=== PATIENT | female | born 1945 | race Caucasian/White ===

== ENCOUNTER → 2018-05-21 11:38 | Outpatient (CLI) | payer MEDICARE, SELFPAY ==
[2016-09-01 09:13] VITALS: BMI 27.6
--- NOTE | 2018-05-21 11:44 | RAD_ITS ---
STUDY: X-RAY - PELVIS AND BILATERAL HIPS REASON FOR EXAM: Female, 72 years old. Bilateral hip pain TECHNIQUE: AP view of the pelvis.? 2 views of the right hip, and 2 views of the left hip were obtained. COMPARISON: None. FINDINGS: There is a non-specific bowel gas pattern. Normal visualized soft tissue structures. There is narrowing with cortical sclerosis and osteophyte formation of the sacroiliac joint consistent with degenerative osteoarthritic changes. Normal bilateral superior and inferior pubic rami. Normal pubic symphysis. Normal bilateral ischial tuberosities. There are osteoarthritic changes of the right femoral head with marginal osteophyte formation. Normal right acetabulum. There is mild articular joint space narrowing of the right hip. There are osteoarthritic changes of the left femoral head with marginal osteophyte formation. Normal left acetabulum. There is mild articular joint space narrowing of the left hip. RAD/Hips B/L min 2 views w/ Pelvis IMPRESSION: Mild degenerative changes without acute findings Electronically Signed: Robin Llamas DO at 12:44 EDT Tel , Service support ,
[2018-05-21 13:55] LABS: Absolute Lymphocyte Count 1.74 X10^3/ul (0.83-4.51); Absolute Neutrophil Count 2.9 X10^3/uL (2.0-7.7); Basophil# 0.02 X10^3/uL; Basophil% 0.4 % (0-1); Eosinophil# 0.16 X10^3/uL; Hematocrit 34.4 % (37-47); Hemoglobin 10.8 g/dl (12.0-15.0); Lymphocyte # 1.74 X10^3/ul (4.0); Mean Corp Hgb Conc 31.4 g/gl (32-36); Mean Corpuscular Hgb 31.2 pg (27.0-32.0); Mean Corpuscular Volume 99.4 fL (81-99); Mean Platelet Vol. 10.4 fl (6.2-12.0); Monocyte# 0.47 X10^3/uL; Monocyte% 8.9 % (0-10); Neutrophil # 2.89 X10^3/uL (2.7-7.7); Neutrophil % 54.7 % (47-70); Platelet Count 276 K/mm3 (150-450); RBC Distribution Width CV 20.1 % (11.6-14.6); RBC Distribution Width SD 72.8 fl (35.1-43.9); Red Blood Count 3.46 M/mm3 (4.2-5.4); White Blood Count 5.3 K/mm3 (4.4-11.0)
[2018-05-21 13:57] LABS: Differential Indicated SCAN CRITERIA MET; POSITIVE COUNT NO; POSITIVE DIFFERENTIAL NO; POSITIVE MORPHOLOGY YES
[2018-05-21 14:06] LABS: Anion Gap 4 (5-15); BUN 17 mg/dL (7-18); BUN/Creat Ratio 18.6 RATIO (10-20); Calcium,Total 8.7 mg/dL (8.5-10.1); Chloride 109 mmol/L (98-107); Cholesterol 213 mg/dL (200); Creatinine, Serum 0.92 mg/dL (0.55-1.02); EST Glomerular Filtration Rate 64 mL/min (>60); Est Glom Filt Rate - Afr Amer 77 mL/min (>60); Glucose 89 mg/dL (74-106); High Density Lipoprotein 56 mg/dL; Sodium Level 140 mmol/L (136-145); Triglycerides 111 mg/dL; Very Low Density Lipoprotein 22 mg/dL (5-40)
== END ==
PROVIDERS: Family Provider Family Medicine; PCP Family Medicine; Referring Provider Family Medicine; Visit Provider Family Medicine
DX: Z00.00 Encounter for general adult medical examination without abnormal findings (principal); R53.83 Other fatigue; M25.551 Pain in right hip; R07.9 Chest pain, unspecified
CPT/HCPCS: 36415; 73521; 80048; 80061; 85025

== ENCOUNTER → 2018-06-08 06:45 | Outpatient (CLI) | payer MEDICARE, SELFPAY ==
--- NOTE | 2018-06-08 11:56 | STRESSREP ---
Stress Test Report Date: 06-08-18 Procedure: Exercise tolerance test/imaging study Indications: Chest pain Consent: Per the patient Procedure: The patient exercised on a Angel protocol for 7 minutes completing Stage II and 1 minute of Stage III achieving a peak heart rate of 141 bpm (95 % predicted maximal heart rate) with a peak blood pressure 164/70 mmHg and a peak MET capacity of 8 METs. The baseline ECG demonstrated sinus rhythm. The peak exercise ECG demonstrated no obvious ECG changes. There was a rare PVC during exercise and recovery. The functional capacity was considered good. There was no complaint of chest discomfort during exercise or recovery. The examination was discontinued secondary to dyspnea. Impression: 1. Technically adequate (percent predicted maximal heart rate greater than 85%) exercise tolerance test 2. Peak exercise ECG with no obvious ECG changes 3. Was a rare PVC during exercise and recovery 4. Nuclear images pending Myocardial perfusion imaging study: Technique: The patient was injected with 11.6 mCi of technetium 99m Cardiolite and subsequently rest SPECT Cardiolite nuclear imaging was obtained in the horizontal long, vertical long, and short axis views. The patient exercised on a Angel protocol for 7 minutes completing Stage II and 1 minute of Stage III achieving a peak heart rate 141 (95 % predicted maximal heart rate) with a peak blood pressure 164/70 mmHg and a peak MET capacity of 8 METs. The patient was injected with 31.9 mCi of technetium 99m Cardiolite and subsequently stress SPECT Cardiolite nuclear imaging was obtained in the horizontal long, vertical long, and short axis views. A gated Cardiolite study at peak stress was obtained. Interpretation: Rest and stress SPECT Cardiolite nuclear imaging status post realignment, normalization, and attenuation correction, demonstrates the appearance of relative uniform tracer uptake and myocardial perfusion appearing within normal limits. There is end systolic thickening and brightening. The gated Cardiolite study demonstrates myocardial thickening and inward wall motion. The reported LVEF is 59 %. Impression: 1. Rest and stress SPECT Cardiolite nuclear imaging demonstrate relative uniform tracer uptake and myocardial perfusion appearing within normal limits. 2. The gated Cardiolite study reports an LVEF of %. This note was generated with [employer] software. It may contain incorrect words, spelling, and punctuation that were not noted in checking the note before signing.
--- NOTE | 2018-06-08 12:00 | STRESSREP_ITS ---
Stress Test Report Date: 06-08-18 Procedure: Exercise tolerance test/imaging study Indications: Chest pain Consent: Per the patient Procedure: The patient exercised on a Angel protocol for 7 minutes completing Stage II and 1 minute of Stage III achieving a peak heart rate of 141 bpm (95 % predicted maximal heart rate) with a peak blood pressure 164/70 mmHg and a peak MET capacity of 8 METs. The baseline ECG demonstrated sinus rhythm. The peak exercise ECG demonstrated no obvious ECG changes. There was a rare PVC during exercise and recovery. The functional capacity was considered good. There was no complaint of chest discomfort during exercise or recovery. The examination was discontinued secondary to dyspnea. Impression: 1. Technically adequate (percent predicted maximal heart rate greater than 85%) exercise tolerance test 2. Peak exercise ECG with no obvious ECG changes 3. Was a rare PVC during exercise and recovery 4. Nuclear images pending Myocardial perfusion imaging study: Technique: The patient was injected with 11.6 mCi of technetium 99m Cardiolite and subsequently rest SPECT Cardiolite nuclear imaging was obtained in the horizontal long, vertical long, and short axis views. The patient exercised on a Angel protocol for 7 minutes completing Stage II and 1 minute of Stage III achieving a peak heart rate 141 (95 % predicted maximal heart rate) with a peak blood pressure 164/70 mmHg and a peak MET capacity of 8 METs. The patient was injected with 31.9 mCi of technetium 99m Cardiolite and subsequently stress S PECT Cardiolite nuclear imaging was obtained in the horizontal long, vertical long, and short axis views. A gated Cardiolite study at peak stress was obtained. Interpretation: Rest and stress SPECT Cardiolite nuclear imaging status post realignment, normalization, and attenuation correction, demonstrates the appearance of relative uniform tracer uptake and myocardial perfusion appearing within normal limits. There is end systolic thickening and brightening. The gated Cardiolite study demonstrates myocardial thickening and inward wall motion. The reported LVEF is 59 %. Impression: 1. Rest and stress SPECT Cardiolite nuclear imaging demonstrate relative uniform tracer uptake and myocardial perfusion appearing within normal limits. 2. The gated Cardiolite study reports an LVEF of %. This note was generated with [employer] software. It may contain incorrect words, spelling, and punctuation that were not noted in checking the note before signing.
== END ==
PROVIDERS: Family Provider Family Medicine; PCP Family Medicine; Referring Provider Family Medicine; Visit Provider Family Medicine
DX: R07.9 Chest pain, unspecified (principal)
CPT/HCPCS: 78452; 93017; A9500; A4216

== ENCOUNTER 2020-03-23 13:47 | Emergency (ER) | payer MEDICARE, SELFPAY ==
[2020-03-23 13:48] VITALS: BP 109/56; PULSE 85; RESP 20; TEMP 36.4; O2SAT 94; BMI 28.3
--- NOTE | 2020-03-23 14:12 | EKG12_ITS ---
Test Reason : SOB Blood Pressure : / mmHG Vent. Rate : 078 BPM Atrial Rate : 078 BPM P-R Int : 130 ms QRS Dur : 084 ms QT Int : 386 ms P-R-T Axes : 013 -09 020 degrees QTc Int : 440 ms Normal sinus rhythm Low voltage QRS (Precordial Leads) Minimal voltage criteria for LVH, may be normal variant Borderline ECG Confirmed by AGUILA MERCADO, CARLOS ([id number]), retail asset protection specialist ZEN ROMERO ([id number]) on 03/26/2020 9:27:02 AM Referred By: ANAND Confirmed By:CARLOS SHEEHAN MD
--- NOTE | 2020-03-23 14:16 | NURSING ---
NO OLD EKGS
--- NOTE | 2020-03-23 14:20 | ED.VISSUMM ---
- ER Visit Summary Date of Service: 03/23/20 Chief Complaint: Shortness of breath History of Present Illness: The patient is a 74 F presenting with shortness of breath. Patient was diagnosed with Covid on March 12. She states her symptoms started March 06. Her test came back positive on March 12. She complains of generalized weakness, fatigue. She has had chills. She has dyspnea and cough. She had nausea, vomiting, diarrhea. She denies chest pain. Family is concerned about her weakness. They state they are having to help her get around the house. Yesterday she fell off the toilet. She did not hit her head. Denies other complaints. Tetanus is up-to-date. Physical Examination: Vitals are stable. Patient is afebrile. Alert no acute distress. HEENT exam is unremarkable. Neck is nontender Lungs are clear and equal bilaterally. Heart is regular rate and rhythm. Abdomen is soft nontender nondistended. Extremities skin tear right forearm, no bony tenderness Skin is warm and dry. No focal neurologic deficit. Remainder of exam is unremarkable. Emergency Department Course and Treatment: EKG is sinus rhythm rate of 78 with no acute ischemic changes. Skin tear was cleaned and dressed. Chest x-ray read by myself and radiology shows subtle areas of increased markings in the peripheral aspect of the right upper and left upper lobes. Follow-up is recommended. CBC normal except hemoglobin 11.3. Chemistries show sodium 133, glucose 112, creatinine 1.04. Troponin is negative. CTA chest shows focal area of groundglass appearance in the peripheral aspect of the right upper and left upper lobes. This most likely represents pneumonitis secondary to Covid 19. Pulse ox with ambulation is 92% on room air. Patient would like to go home. She was offered admission and declines. Family is in agreement. She will follow-up with her primary care physician. Advised to return to the ED for worsening complaints. Disposition: Discharge home Impression: COVID-19 This note was generated with [employer] dictation software. It may contain incorrect words, spelling, and punctuation that were not noted in review of the chart prior to signing ED Disposition - Plan for ED Patient: Instructions: Coronavirus Disease 2019 (COVID-19): Overview Referrals: Elio Cedeño MD [Primary Care Provider] -
[2020-03-23 14:31] LABS: Absolute Lymphocyte Count 0.99 X10^3/uL (0.83-4.51); Absolute Neutrophil Count 3.6 X10^3/uL (2.0-7.7); Basophil# 0.02 X10^3/uL; Basophil% 0.4 % (0-1); Eosinophil# 0.01 X10^3/uL; Eosinophils% 0.2 % (0-5); Hematocrit 35.7 % (37-47); Hemoglobin 11.3 g/dL (12.0-15.0); Lymphocyte # 0.99 X10^3/ul (4.0); Lymphocyte % 19.6 % (19-41); Mean Corp Hgb Conc 31.7 g/dL (32-36); Mean Corpuscular Volume 97.8 fL (81-99); Mean Platelet Vol. 11.1 fl (6.2-12.0); Monocyte% 5.9 % (0-10); NRBC Flagged by Analyzer 0 % (0-5); Neutrophil # 3.64 X10^3/uL (2.7-7.7); Neutrophil % 71.9 % (47-70); POSITIVE MORPHOLOGY YES; Platelet Count 201 K/mm3 (150-450); RBC Distribution Width CV 18.6 % (11.6-14.6); RBC Distribution Width SD 66.3 fl (35.1-43.9); Red Blood Count 3.65 M/mm3 (4.2-5.4); White Blood Count 5.1 K/mm3 (4.4-11.0)
[2020-03-23 14:32] LABS: Differential Indicated SCAN CRITERIA MET
[2020-03-23 14:49] LABS: ALB/GLOB Ratio 0.8 RATIO (0.9-2.4); AST(SGOT) 41 U/L (15-37); Alanine Aminotransfer ALT/SGPT 40 U/L (13-56); Albumin, Serum 3.4 g/dL (3.2-5.0); Alkaline Phosphatase 48 U/L (45-117); Anion Gap 6 (5-15); BUN 14 mg/dL (7-18); BUN/Creat Ratio 13.5 RATIO (10-20); Calcium,Total 8.4 mg/dL (8.5-10.1); Chloride 101 mmol/L (98-107); Creatinine, Serum 1.04 mg/dL (0.55-1.02); EST Glomerular Filtration Rate 55 mL/min (>60); Est Glom Filt Rate - Afr Amer 66 mL/min (>60); Estimated Creatinine Clearance 38.66 ml/min; Globulin 4.5 g/dL (2.2-4.2); Glucose 112 mg/dL (74-106); Hypochromasia 1+; Platelet Estimate ADEQUATE (ADEQ); Potassium 3.8 mmol/L (3.5-5.1); Protein, Total 7.9 g/dL (6.4-8.2); Sodium Level 133 mmol/L (136-145)
[2020-03-23 14:50] LABS: Platelet Morphology LARGE; Target Cells RARE
[2020-03-23 14:55] VITALS: BP 132/83; PULSE 74; RESP 20; TEMP 36.4; O2SAT 93
[2020-03-23 15:00] VITALS: BP 140/62; PULSE 71; RESP 16; TEMP 36.4; O2SAT 96
--- NOTE | 2020-03-23 15:07 | RAD_ITS ---
STUDY: X-RAY CHEST REASON FOR EXAM: Female, 74 years old. Tested positive covid last week. Sob, fever, muscle aches, diarrhea. Feeling weak TECHNIQUE: Single AP portable view of the chest. COMPARISON: Comparison is made with prior study dated 01/24/2013. FINDINGS: EKG electrodes are seen. Mild increased markings are seen in the lateral aspect of the right upper lobe. Faint markings are also seen along the lateral aspect of the left upper lobe. Radial graphic follow-up is recommended. There is no demonstrated pleural abnormality. Normal size heart. Normal mediastinum and anju. Normal visualized pulmonary arteries. Normal visualized aortic arch and descending thoracic aorta. There are degenerative changes of the visualized thoracic spine. Normal visualized ribs, clavicles, and shoulders. There is no demonstrated abnormality of the visualized soft tissue structures of the upper abdomen. RAD/Chest 1 View (Portable) IMPRESSION: Subtle areas of increased markings in the peripheral aspect of the right upper and left upper lobes. Follow-up is recommended. Electronically Signed: Memo Chavez MD at 15:18 EST , Service support ,
--- NOTE | 2020-03-23 15:18 | CT_ITS ---
STUDY: CTA CHEST REASON FOR EXAM: Female, 74 years old. COVID+, SOB, FEVER, DIARRHEA, WEAKNESS RADIATION DOSAGE (If Supplied By Facility): CTDIvol = ( 10.06 ) mGy, DLP = ( 326.22 ) mGycm TECHNIQUE: The examination was performed with the intravenous administration of IV 75mL Isovue-370. Post-processing of the angiographic images was performed, with multiplanar reformation and 3D reconstruction. Individualized dose optimization techniques were used for this CT. COMPARISON: Comparison is made with prior chest radiograph done earlier today. FINDINGS: Normal enhancement of the main pulmonary artery and right and left pulmonary arteries. Normal enhancement of the bilateral peripheral pulmonary arteries. There is no demonstrated pulmonary embolism. Normal thoracic aorta and visualized great vessels. There is no demonstrated aortic dissection. Normal heart and pericardium. Normal mediastinum. Normal hilar regions. Normal visualized trachea and bronchi. The lungs are well expanded. Focal area of groundglass appearance seen in the peripheral aspects of both the right upper and left upper lobes. With the patient''s history of a positive covid test, this may represent pneumonitis secondary to Covid 19. Minimal increased markings at the lung bases suggestive of scarring. Normal pleura. Normal chest wall structures. There are degenerative changes of thoracic spine. Normal visualized upper abdomen. CT/CTA Chest W/WO Contrast IMPRESSION: Focal area of groundglass appearance in the peripheral aspect of the right upper and left upper lobes. This most likely represents pneumonitis secondary to Covid 19. Electronically Signed: Memo Chavez MD at 15:52 EST , Service support ,
[2020-03-23 15:47] VITALS: O2SAT 94
--- NOTE | 2020-03-23 16:19 | ED.DEP ---
ED Disposition - Plan for ED Patient: Instructions: Coronavirus Disease 2019 (COVID-19): Overview Referrals: Elio Cedeño MD [Primary Care Provider] -
[2020-03-23 16:35] VITALS: O2SAT 95
== END 2020-03-23 16:36 | disposition home or self-care (01) ==
LOC: ED 14:53
PROVIDERS: Emergency Provider Emergency Medicine; PCP Family Medicine
DX: U07.1 COVID-19 (principal); Z87.891 Personal history of nicotine dependence
CPT/HCPCS: 71045; 71275; 80053; 84484; 85025; 93005; 99283; J7040; A4216

== ENCOUNTER 2021-04-19 15:16 | Outpatient (CLI) | payer MEDICARE, SELFPAY | END 2021-04-19 23:59 | disposition home or self-care (01) | LOC: LABSPEC 15:18 | PROVIDERS: PCP Family Medicine; Referring Provider Family Medicine; Visit Provider Family Medicine | DX: R30.0 Dysuria (principal) | CPT/HCPCS: 87077; 87086; 87088; 87186 ==

== ENCOUNTER → 2021-09-06 | Outpatient (CLI) | payer MEDICARE, SELFPAY ==
[2021-09-06 10:29] LABS: Vitamin D,25 Hydroxy 24.6 ng/mL
[2021-09-06 10:32] LABS: Anion Gap 7 (5-15); BUN 14 mg/dL (7-18); BUN/Creat Ratio 15.4 RATIO (10-20); Chloride 108 mmol/L (98-107); Cholesterol 213 mg/dL (200); Creatinine, Serum 0.91 mg/dL (0.55-1.02); EST Glomerular Filtration Rate 64 mL/min (>60); Est Glom Filt Rate - Afr Amer 77 mL/min (>60); Glucose 101 mg/dL (74-106); High Density Lipoprotein 53 mg/dL; Potassium 4.2 mmol/L (3.5-5.1); Sodium Level 141 mmol/L (136-145); Triglycerides 102 mg/dL; Very Low Density Lipoprotein 20 mg/dL (5-40)
== END | disposition home or self-care (01) ==
LOC: MFPLAB 09:23
PROVIDERS: PCP Family Medicine; Referring Provider Family Medicine; Visit Provider Family Medicine
DX: Z00.00 Encounter for general adult medical examination without abnormal findings (principal)
CPT/HCPCS: 36415; 80048; 80061; 82306

== ENCOUNTER → 2021-09-16 | Outpatient (CLI) | payer MEDICARE, SELFPAY ==
--- NOTE | 2021-09-16 14:12 | BI_ITS ---
MAMMOGRAPHY - BILATERAL SCREENING 3-D TOMOSYNTHESIS REASON FOR EXAM: Female, 75 years old. Routine screening PERTINENT HISTORY: No significant family history. TECHNIQUE: 2-D mammograms and 3-D Tomosynthesis of the breast (s) were performed. CAD was performed. COMPARISON: 2016 FINDINGS: The breast composition is heterogeneously dense that can obscure small breast masses. Scattered benign calcifications are seen. No dense spiculated masses or suspicious microcalcifications are identified. No architectural distortion is identified. There is no skin thickening or retraction. There has been no significant change since the prior study. BI/SCREENING MAMM (CAD), BILAT IMPRESSION: No mammographic signs of malignancy. Routine yearly mammograms recommended. ASSESSMENT CATEGORY: BIRADS Category 2: Benign. A letter regarding these results will be sent to the patient by the facility within 30 days. FOLLOW UP RECOMMENDATION: Yearly follow up mammogram recommended. (A) Approximately 10% of breast cancers are not detected by mammography. A normal mammogram should not delay biopsy of a clinically suspicious abnormality. Electronically Signed: David Jaeger MD at 13:00 EDT ,
--- NOTE | 2021-09-16 14:21 | BD_ITS ---
STUDY: DUAL ENERGY X-RAY ABSORPTIOMETRY / DXA REASON FOR EXAM: Female, 75 years old. V76.12ScreeningBONE DENSITY REASON FOR EXAM TECHNIQUE: Bone Mineral Density (BMD) measurements of lumbar spine and bilateral hips were obtained. COMPARISON: Comparison is made with prior study dated 04/14/2015. FINDINGS: Lumbar Spine (L1-L4): g/cm2 (1.169) / T-score (0.8) / Z-score (3.4) Findings are suggestive of normal bone density with a low fracture risk. Left Femur Total: g/cm2 (0.776) / T-score (-1.4) / Z-score (0.5) Left Femoral Neck: g/cm2 (0.610) / T-score (-2.2) / Z-score (0.0) Right Femur Total: g/cm2 (0.820) / T-score (-1.0) / Z-score (0.9) Right Femoral Neck: g/cm2 (0.656) / T-score (-1.7) / Z-score (0.4) The T-Scores on the most recent prior examination were: Lumbar Spine (L1-L4): There has been improvement of bone density since the previous examination. Left Femur Total: which represents a worsening of 3.6%. Right Femur Total: which represents a worsening of 2.4%. BD/Dexa Bone Density Study IMPRESSION: The patient is considered osteopenic as outlined below according to World Keyur Organization (WHO) criteria with a high fracture risk. There has been worsening of bone density since the previous examination. Reference Information: The T-score is the number of standard deviations above or below the standard which is normal for young adults at their peak bone mineral density. The World Health Organization (WHO) interprets the T-scores as follows: Above -1 Normal bone density Between -1 and -2.5 Osteopenia Equal to / or below -2.5 Osteoporosis As a practical clinical guideline, osteopenia may be graded as follows: Mild -1 through -1.5 Moderate -1.6 through -2.0 Severe -2.1 through -2.4 The Z-score is the number of standard deviations above or below age-matched controls. A Z-score of less than -1.5 would be considered abnormal. References: 1. NIH Osteoporosis and Related Bone Diseases www osteo.org 2. International Society for Clinical Densitometry www iscd.org 3. National Osteoporosis Foundation www nof.org Electronically Signed: Memo Chavez MD at 14:23 EDT ,
== END | disposition home or self-care (01) ==
LOC: OPBD 14:11
PROVIDERS: PCP Family Medicine; Referring Provider Family Medicine; Visit Provider Family Medicine
DX: N95.9 Unspecified menopausal and perimenopausal disorder (principal); Z12.31 Encounter for screening mammogram for malignant neoplasm of breast
CPT/HCPCS: 77067; 77080

== ENCOUNTER → 2022-01-10 | Outpatient (CLI) | payer MEDICARE, SELFPAY ==
--- NOTE | 2022-01-10 15:36 | RAD_ITS ---
INDICATION: PAIN EXAMINATION/TECHNIQUE: X-RAY - LEFT XR Foot Min 3 Views 3 VIEWS COMPARISON: None. FINDINGS: SOFT TISSUES: Ankle edema. No subcutaneous emphysema. No radiopaque foreign body. BONES/JOINTS: No acute fracture or dislocation.. Scattered metatarsophalangeal joint, moderate at the first digit. Diffuse moderate interphalangeal joint osteoarthritis. Diffuse mild carpometacarpal joint osteoarthritis. No erosive changes. No aggressive osseous lesion. RAD/Foot min 3 Views IMPRESSION: No acute osseous finding. Osteoarthritis as above. Electronically Signed: Ashkan Mendoza MD at 6:26 EST ,
--- NOTE | 2022-01-10 15:36 | RAD_ITS ---
INDICATION: PAIN EXAMINATION/TECHNIQUE: X-RAY - LEFT XR Hip Unilateral with Pelvis when performed; 2-3 Views AP pelvis and AP and frog-leg left hip COMPARISON: None. FINDINGS: SOFT TISSUES: No soft tissue swelling or gas. No radiopaque foreign body. BONES/JOINTS: No acute fracture or subluxation.. Normal alignment. Preserved hip joint spacing.. No aggressive osseous lesion. Mild bilateral sacroiliac joint degenerative change. Moderate lumbar spondylosis. RAD/HIP, UNI W/ Pelvis 2-3 Views IMPRESSION: No acute osseous finding or significant degenerative change within the hips. Mild bilateral sacroiliac joint degenerative change. Electronically Signed: Ashkan Mendoza MD at 6:42 EST ,
--- NOTE | 2022-01-10 15:36 | RAD_ITS ---
INDICATION: BACK PAIN EXAMINATION/TECHNIQUE: X-RAY - XR Sacrum/Coccyx Min 2 Views COMPARISON: None. FINDINGS: SACRUM/COCCYX: Moderate lumbosacral facet arthropathy and endplate degenerative change. No displaced fracture, destructive or sclerotic lesions. Note that overlapping bowel shadows may however obscure fine detail in the frontal view. Sacral arcuate lines are intact. SACRO-ILIAC JOINTS: The articular structures are unremarkable. SOFT TISSUES: No soft tissue swelling or gas. RAD/Sacrum-Coccyx min 2 Views IMPRESSION: No evidence of acute injury. Moderate lumbosacral spondylosis. Electronically Signed: Ashkan Mendoza MD at 6:38 EST Reading Location ID and State: [facility] / [place] Tel , Service support ,
== END | disposition home or self-care (01) ==
PROVIDERS: PCP Family Medicine; Visit Provider Family Medicine
DX: M25.552 Pain in left hip (principal); M79.672 Pain in left foot
CPT/HCPCS: 72220; 73502; 73630

== ENCOUNTER → 2022-08-04 | Outpatient (CLI) | payer MEDICARE, SELFPAY ==
--- NOTE | 2022-08-04 17:51 | MRI_ITS ---
INDICATION: BACK PAIN, BILAT HIP PAIN EXAMINATION: MRI - MR Spine Lumbar W/O Contrast TECHNIQUE: Multiplanar and multisequence MR images of the lumbar spine. IV Contrast Dosage and Agent: None. COMPARISON: CTA chest 03/23/2020. FINDINGS: VERTEBRAE: Moderate compression deformity of the T11 vertebral body, more severe than on the prior CT, but this compression fracture appears chronic, with no marrow edema identified. Mild compression deformity of the T12 vertebral body, unchanged. Mild smooth compression deformity of the central aspect of the L2 and L3 superior endplates, without marrow edema, and these are felt be remote/old. No acute compression fracture identified. VERTEBRAL ALIGNMENT: Preservation of the normal lumbar lordosis. Slight degenerative posterolisthesis of T12 on L1 and of L1 on L2. Slight degenerative anterolisthesis of L3 on L4 and of L4 on L5. CORD: Normal position and signal intensity of the conus medullaris. Nerve roots within the cauda equina do not appear abnormally thickened or clumped. LOWER THORACIC DISCS: The lower thoracic discs are degenerated with marginal osteophytes, and endplate degenerative changes which are most severe at T12/L1. Minimal annular bulging at the T10/11 level. No significant annular bulging at T11/12. Mild broad-based annular bulge at T12/L1. Severe narrowing of the right neural foramen at the T12/L1 level by extensive posterolateral spurring. No thecal sac stenosis at this level. L1/L2: Mild disc space narrowing. Disc degeneration/dehydration with endplate degenerative changes and marginal osteophytes. Severe narrowing of the neural foramina bilaterally at this level by posterior lateral osteophytes, facet hypertrophy and broad-based. L2/L3: The disc space is preserved; mild endplate degenerative changes with marginal osteophytes are present. Flattening of the ventral aspect of the thecal sac by mild/moderate broad-based annular bulge, which also narrows the inferior neural foramina. Facet hypertrophy and ligamentum flavum hypertrophy at this level, without thecal sac stenosis. L3/L4: L3/4 disc space is preserved. No endplate degenerative changes at this level. Thecal sac stenosis at this level by broad-based annular bulge, midline disc protrusion, ligamentum flavum hypertrophy and extensive facet hypertrophy. AP diameter of the thecal sac narrowed to about 5 mm at this level. Inferior neural foramina are narrowed by the annular bulging and facet hypertrophy, slightly more severe on the left. L4/L5: Severe degenerative narrowing of the disc space with endplate degenerative changes and marginal osteophytes. Flattening the ventral aspect of the thecal sac by mild broad-based annular bulge, minimal central disc protrusion, slight anterolisthesis of L4 on L5. Lateral recess stenosis bilaterally by the annular bulge, ligamentum flavum hypertrophy and extensive facet hypertrophy. The annular bulge and facet hypertrophy minimally narrow the neural foramina at this level. L5/S1: Disc space narrowing with endplate degenerative changes and marginal osteophytes. Minimal annular bulging at this level,without significant mass effect upon the thecal sac. Neural foramina are patent. Facet hypertrophy noted at this level. SOFT TISSUES: Psoas muscles are symmetric. Visualized abdominal aorta is normal in caliber. No paraspinal soft tissue swelling. No hydronephrosis is seen. MRI/Spine Lumbar (Routine) IMPRESSION: Old compression fractures at the T11, T12, L2 and L3 levels. No acute compression fracture. Extensive multilevel degenerative disc disease and facet hypertrophy. Thecal sac stenosis at the L3/4 level due to annular bulging, central disc protrusion, ligamentum flavum hypertrophy and facet hypertrophy. Severe narrowing of the right neural foramen at T12/L1 by postero-lateral osteophytes. Electronically Signed: Oscar Harp MD at 23:37 EDT ,
== END | disposition home or self-care (01) ==
LOC: MRI 17:48
PROVIDERS: PCP Family Medicine; Referring Provider Family Medicine; Visit Provider Family Medicine
DX: M54.9 Dorsalgia, unspecified (principal)
CPT/HCPCS: 72148

== ENCOUNTER 2022-08-05 09:55 | Outpatient (RCR) | payer MEDICARE, SELFPAY ==
--- NOTE | 2022-08-10 09:08 | HP.PTEVAL_ITS ---
Patient's Visit Information Visit Information Visit Information: WADE ELLSWORTH is a 76 year old F referred to Physical Therapy by Dr. Elio Cedeño MD with a diagnosis of Low back pain. Date of Evaluation: 08/05/22 Physical Therapist: Donnell Layton DPT Visit Plan Frequency: 2x /Week Duration: 6 Weeks Plan: Start with modalities to reduce symptoms including US and some manual techniques. Progress to lumbar ROM and neutral spine core stability. Once able progress to more dynamic strengthening. Subjective Subjective: Pt. is here today for her initial evaluation with diagnosis of low back pain. Pt. reports having increased low back pain after going on vacation trip for a few weeks. Pt. had some pain in her back prior to, but was worsened during and after. She is doing a little but better now, but is still having some issues. Pt. reports some pain into her L buttock, but minimal, mostly near L4/L5 region into R sided SI. Pt. denies N/T in either LE. Pt. has trouble lying on either side and has to consistent change throughout the night due to her soreness. Pt. reports no sudden LE weakness and no changes in B/B. Pt. has had an MRI, but awaiting the results. Pt. is hopeful to reduce symptoms in order to get back to all recreational activities without limitations. Pain Lumbar spine: Pain Intensity (Out of 10): 3 Pain Intensity Range: 0 and 6 Comment: R side Objective Objective: POSTURE: Pt. has slight flexed posture in standing, slouched posture in sitting. Normal wt. shift no lateral shift noted. PALPATION: Pt. has tenderness at R side of Lumbar spine (L3-L5 and SI region). NEURO: Pt. has normal sensation in BLEs. Pt. has normal DTR of BLEs. Pt. is able to rise on heels and toes without issues. Use of UEs for balance. ROM: LUMBAR SPINE: flexion min loss NE, ext mod loss increase NW, SB R min/mod loss increase NW, SB L NE, rotation min loss bilat NE. Pt. has tight HS and hip flexors, but hip ROM is good bilaterally. MMT: Pt. has good distal BLE strength and symmetrical. Pt. does have increased weakness in B hips: including 4/5, hip flexion, 4/5 hip abd and 4+/5 hip extension. Core strength: poor. GAIT: pt. ambulates without AD, flexed posture. Pt. has increased lateral hip sway, but no Trendelenburg noted. STAIRS: Pt. is able to complete with B HR with increased pain on R side. Special Tests L/S Slump test left side: Negative L/S Slump test right side: Negative L/S Left Straight Leg Raise: Negative L/S Right Straight Leg Raise: Negative Lumbar Standing: Flexion - Mechanical Response: No effect Lumbar Standing: Flexion - Symptoms During Testing: No effect Lumbar Standing: Flexion - Symptoms After Testing: No effect Lumbar Standing: Extension - Mechanical Response: No effect Lumbar Standing: Extension - Symptoms During Testing: Increases Lumbar Standing: Extension - Symptoms After Testing: No worse Lumbar Standing: Right Side Glides - Mechanical Response: No effect Lumbar Standing: Right Side Gerlaw - Symptoms During Testing: Increases Lumbar Standing: Right Side Gerlaw - Symptoms After Testing: No worse Lumbar Standing: Left Side Gerlaw - Mechanical Response: No effect Lumbar Standing: Left Side Gerlaw - Symptoms During Testing: No effect Lumbar Standing: Left Side Gerlaw - Symptoms After Testing: No effect Comments:: Pt. did a little bit better with flexion motion this date. Balance/Special Test Scores Oswestry Low Back Score: 10 Goals Goal 1:: LTG: Pt. to be I with HEP for core stability. Goal Time Frame: 4-6 Weeks Goal 2:: STG: pt. to sleep throughout the night without increase in symptoms. Goal Time Frame: 2-4 Weeks Goal 3:: LTG: Pt. to have increased core and B strength to 5/5 throughout in order to reduce stress to lumbar spine with all activities. Goal Time Frame: 4-6 Weeks Goal 4:: LTG: Pt. to be able to walk and sit without increase in lumbar spine symptoms. Goal Time Frame: 4-6 Weeks Goal 5:: STG: pt. to have increased lumbar spine ROM by 25% throughout without increase in symptoms. Goal Time Frame: 2-4 Weeks Rehabilitation Potential Physical Therapy Diagnosis: Pt. has signs and symptoms consistent with Low Back Pain. Pt. has marked loss of ROM, weakness and + dural signs. Pt. has had an MRI, but results on read yet. Pt. would benefit from PT to address her loss of ROM, to reduce symptoms progressing to neutral spine core stability. Rehabilitation Potential: Fair Anticipated Interventions Patient/Client Instruction: Educate patient on: Condition, Plan of Care, Risk Factors and Benefits of Fitness Program For the Purpose of:: To facilitate caregiver knowledge, To improve self management, To prevent re-injury, To improve ability to perform tasks related to life management and To improve tolerance to ADL's Therapeutic Exercise to Include: Strength training, Power training, Body mechanics, Postural training, Flexibilty training, Passive ROM, Active ROM, Dynamic Lumbar Stabilization and Josue Exercises For the Purpose of:: To decrease pain, To decrease swelling/inflammation, To increase ROM, To improve nutrient delivery to tissue, To increase oxygenation perfusion, To improve muscle performance and motor function, To improve ability to perform ADL's, To increase tolerance to activity/condition/position, To improve performance and independence with ADL's, To improve health of tissue, To decrease soft tissue restriction and To increase flexibility/ROM Manual Therapy Techniques to Include: Mobilization, Functional dry needling and Soft tissue mobilization For the Purpose of:: To decrease pain, To decrease swelling/inflammation, To increase ROM, To improve nutrient delivery to tissue, To increase oxygenation perfusion and To improve muscle performance and motor function Ultrasound (thermal/non thermal): Yes For the Purpose of:: To decrease pain, To decrease swelling/inflammation and To increase ROM Text: Thank you for the opportunity to evaluate your patient. For Medicare and Medicare HMO plans, please review the plan of care and approve it. It will need to be FAXED BACK to us at [phone] for Medicare purposes. For Medicare only, by signing this I certify the plan of care. Please let me know if there are questions or concerns regarding this plan of care. Physician Signature: Date:
== END 2022-08-05 19:00 | disposition home or self-care (01) ==
LOC: PT 09:55
PROVIDERS: PCP Family Medicine; Referring Provider Family Medicine; Visit Provider Family Medicine
DX: M54.9 Dorsalgia, unspecified (principal)
CPT/HCPCS: 97161

== ENCOUNTER → 2022-09-08 | Outpatient (CLI) | payer MEDICARE, SELFPAY ==
--- NOTE | 2022-09-08 11:01 | RAD_ITS ---
STUDY: X-RAY - RIGHT KNEE REASON FOR EXAM: Female, 76 years old patient with right-sided knee pain. TECHNIQUE: 4 view(s) of the knee. COMPARISON: Radiographs of the right knee dated September 01, 2016. FINDINGS: There is demineralization of the visualized distal femur. There is demineralization of the tibia and fibula. Normal proximal tibiofibular articulation. There is no demonstrated fracture. There is mild degenerative arthrosis of the medial femorotibial compartment. There is mild degenerative arthrosis of the lateral femorotibial compartment. There is deformity of the lateral tibial plateau probably secondary to old fracture. There is severe degenerative arthrosis of the patellofemoral articulation. There is a soft tissue prominence in the suprapatellar region suggesting a small volume joint effusion. There is chondrocalcinosis of the medial and lateral femoral tibial compartments. There are atherosclerotic calcifications. There is soft tissue swelling. RAD/Knee 4 or More Views IMPRESSION: Moderate to severe degenerative arthropathy of the knee as described. Electronically Signed: Michelle Saenz MD at 1:46 EDT ,
[2022-09-08 12:20] LABS: Anion Gap 4 (5-15); BUN 31 mg/dL (7-18); BUN/Creat Ratio 20.7 RATIO (10-20); Chloride 107 mmol/L (98-107); Cholesterol 129 mg/dL (200); EST Glomerular Filtration Rate 36 mL/min (>60); Est Glom Filt Rate - Afr Amer 43 mL/min (>60); Glucose 108 mg/dL (74-106); High Density Lipoprotein 57 mg/dL; Sodium Level 137 mmol/L (136-145); Triglycerides 71 mg/dL; Uric Acid 6.9 mg/dL (2.6-6.0); Very Low Density Lipoprotein 14 mg/dL (5-40)
== END | disposition home or self-care (01) ==
LOC: MTLAB 10:59
PROVIDERS: PCP Family Medicine; Visit Provider Family Medicine
DX: Z00.00 Encounter for general adult medical examination without abnormal findings (principal); E55.9 Vitamin D deficiency, unspecified; M19.90 Unspecified osteoarthritis, unspecified site; M25.561 Pain in right knee; Z13.6 Encounter for screening for cardiovascular disorders
CPT/HCPCS: 36415; 73564; 80048; 80061; 82306; 84550

== ENCOUNTER → 2022-11-29 | Outpatient (CLI) | payer MEDICARE, SELFPAY ==
--- NOTE | 2022-11-29 09:44 | BI_ITS ---
MAMMOGRAPHY - BILATERAL SCREENING 3-D TOMOSYNTHESIS REASON FOR EXAM: Female, 77 years old. SCREENING PERTINENT HISTORY: No significant family history. TECHNIQUE: 2-D mammograms and 3-D Tomosynthesis of the breast (s) were performed. CAD was performed. COMPARISON: 09/16/2021 FINDINGS: The breast composition is Extermely dense tissue. Scattered benign calcifications are seen. No dense spiculated masses or suspicious microcalcifications are identified. No architectural distortion is identified. There is no skin thickening or retraction. There has been no significant change since the prior study. Bilateral benign vascular calcifications can be associated with coronary artery disease. BI/SCRN MAMM (CAD)W/MO BILAT IMPRESSION: No mammographic signs of malignancy. Routine yearly mammograms recommended. ASSESSMENT CATEGORY: BIRADS Category 2: Benign. A letter regarding these results will be sent to the patient by the facility within 30 days. FOLLOW UP RECOMMENDATION: Yearly follow up mammogram recommended. (A) Approximately 10% of breast cancers are not detected by mammography. A normal mammogram should not delay biopsy of a clinically suspicious abnormality. Electronically Signed: James Del Cid MD at 14:07 EDT ,
== END | disposition home or self-care (01) ==
LOC: OPBI 09:44
PROVIDERS: PCP Family Medicine; Referring Provider Family Medicine; Visit Provider Family Medicine
DX: Z12.31 Encounter for screening mammogram for malignant neoplasm of breast (principal)
CPT/HCPCS: 77063; 77067

== ENCOUNTER → 2023-08-24 | Outpatient (CLI) | payer MEDICARE, SELFPAY ==
--- NOTE | 2023-08-24 15:19 | RAD_ITS ---
STUDY: X-RAY - LEFT SHOULDER REASON FOR EXAM: Female, 77 years old. PAIN TECHNIQUE: 4 view(s) of the shoulder. COMPARISON: 06/10/2015 FINDINGS: There is mild degenerative arthrosis of the glenohumeral articulation. There is degenerative arthrosis of the acromioclavicular joint without inferior osseous spur formation. Normal acromion. Normal humeral head and visualized proximal humerus. The soft tissue structures are unremarkable. Normal visualized pulmonary apex. RAD/Shoulder min 2 Views IMPRESSION: Mild glenohumeral and acromioclavicular joint arthrosis. Electronically Signed: James Del Cid MD at 10:03 EDT ,
--- NOTE | 2023-08-24 15:19 | RAD_ITS ---
STUDY: X-RAY - RIGHT SHOULDER REASON FOR EXAM: Female, 77 years old. PAIN TECHNIQUE: 4 view(s) of the shoulder. COMPARISON: None. FINDINGS: There is mild degenerative arthrosis of the glenohumeral articulation. There is degenerative arthrosis of the acromioclavicular joint without inferior osseous spur formation. Normal acromion. Normal humeral head and visualized proximal humerus. The soft tissue structures are unremarkable. Normal visualized pulmonary apex. RAD/Shoulder min 2 Views IMPRESSION: Mild glenohumeral and acromioclavicular joint arthrosis. Electronically Signed: James Del Cid MD at 9:09 EDT ,
--- NOTE | 2023-08-24 15:33 | RAD_ITS ---
INDICATION: LEFT HIP PAIN EXAMINATION/TECHNIQUE: X-RAY - XR Hips Bilateral with Pelvis when performed; Min 5 Views COMPARISON: 01/10/2022 FINDINGS: PELVIC BONES: No displaced fracture, destructive or sclerotic lesions. Note that overlapping bowel shadows may however obscure fine detail. Sacroiliac joints are unremarkable. No widening of the pubic symphysis. HIPS: Mild joint space narrowing of both hip joints consistent with mild arthrosis. No displaced fracture seen in this frontal view. SOFT TISSUES: No soft tissue swelling or gas. RAD/Hips B/L min 2 views w/ Pelvis IMPRESSION: No evidence of displaced pelvic or hip fracture. Mild bilateral hip arthrosis. Electronically Signed: James Del Cid MD at 9:58 EDT ,
[2023-08-26 10:13] LABS: Lyme Scn Total Ab w/Rflx Negative (Negative)
== END | disposition home or self-care (01) ==
PROVIDERS: PCP Family Medicine; Referring Provider Family Medicine; Visit Provider Family Medicine
DX: M25.552 Pain in left hip (principal); M25.519 Pain in unspecified shoulder
CPT/HCPCS: 36415; 73030; 73521; 86618

== ENCOUNTER → 2023-10-25 | Outpatient (CLI) | payer MEDICARE, SELFPAY | END | disposition home or self-care (01) | LOC: PSN 10:26 | PROVIDERS: PCP Family Medicine | DX: R06.09 Other forms of dyspnea (principal) | CPT/HCPCS: 94060; 94726; 94729 ==

== ENCOUNTER → 2023-12-28 | Outpatient (CLI) | payer MEDICARE, SELFPAY ==
--- NOTE | 2023-12-28 13:07 | RAD_ITS ---
INDICATION: MOD PERS ASTHMA/SOB/COUGH EXAMINATION/TECHNIQUE: X-RAY - XR Chest 2 Views COMPARISON: March 23, 2020 FINDINGS: LINES/DEVICES: None. LUNGS: No consolidation, edema or effusion. No pneumothorax. MEDIASTINUM AND CARDIOVASCULAR STRUCTURES: Cardiac silhouette not enlarged. Central airways and mediastinal contour are unremarkable. BONES AND SOFT TISSUES: Degenerative vertebral changes and scoliosis. RAD/Chest PA and Lateral IMPRESSION: No radiographic evidence of acute cardiopulmonary disease. Electronically Signed: Stu Bustillo DO at 9:53 EST ,
== END | disposition home or self-care (01) ==
PROVIDERS: PCP Family Medicine; Referring Provider Internal Medicine Pulmonary Disease; Visit Provider Internal Medicine Pulmonary Disease
DX: J45.40 Moderate persistent asthma, uncomplicated (principal); R06.02 Shortness of breath; R05.9 Cough, unspecified
CPT/HCPCS: 71046

== ENCOUNTER → 2024-05-02 | Outpatient (CLI) | payer MEDICARE, SELFPAY ==
[2024-05-02 17:45] LABS: Hematocrit 29.1 % (37-47); Hemoglobin 9.2 g/dL (12.0-15.0); Mean Corp Hgb Conc 31.6 g/dL (32-36); Mean Corpuscular Hgb 32.4 pg (27.0-32.0); Mean Corpuscular Volume 102.5 fL (81-99); Mean Platelet Vol. 12.3 fl (6.2-12.0); POSITIVE MORPHOLOGY YES; Platelet Count 270 K/mm3 (150-450); RBC Distribution Width CV 18.6 % (11.6-14.6); RBC Distribution Width SD 68.9 fl (35.1-43.9); Red Blood Count 2.84 M/mm3 (4.2-5.4); White Blood Count 7.4 K/mm3 (4.4-11.0)
[2024-05-02 18:20] LABS: Scan Indicated on CBC? Y/N YES- FLAGS NOTED
== END | disposition home or self-care (01) ==
LOC: MTLAB 12:51
PROVIDERS: PCP Family Medicine; Referring Provider Internal Medicine Pulmonary Disease; Visit Provider Internal Medicine Pulmonary Disease
DX: J45.40 Moderate persistent asthma, uncomplicated (principal)
CPT/HCPCS: 36415; 85027

== ENCOUNTER → 2024-05-09 | Outpatient (CLI) | payer MEDICARE, SELFPAY ==
--- NOTE | 2024-05-09 11:41 | CT_ITS ---
PROCEDURE: CHEST WITHOUT CONTRAST 05/09/2024 REASON FOR EXAM: ASTHMA TECHNIQUE: Chest CT without contrast. Coronal and Sagittal reconstruction series were provided. One or more dose reduction techniques were used (e.g., Automated exposure control, adjustment of the mA and/or kV according to patient size, use of iterative reconstruction technique COMPARISON: 12/28/2023; 03/23/2020 FINDINGS: Lungs/Pleura:A couple of small focal patchy areas of consolidation are present in the peribronchial region of the left upper lobe. Additionally, there are small multifocal areas of subtle ground-glass opacity throughout the lungs bilaterally. There are mild peripheral reticular opacities throughout the lungs, which are greatest in the lung bases. A peribronchial nodule in the left upper lobe measures 4.3 mm on image 45 of series 4. A tiny pulmonary nodule is present in the right lung apex measuring 2 mm on image 21 of series 4. No pleural effusion or pneumothorax. Cardiovascular:The heart is normal in size.[id number] coronary artery calcifications are present.There are mild scattered atherosclerotic calcifications in the thoracic aorta. The pulmonary arteries are unremarkable. Pericardium:No effusion. Mediastinum:Unremarkable. Lymph nodes:No lymph node enlargement identified on this noncontrast CT. Bones:Chronic vertebral compression fractures are present at the superior endplate of T11 and T12. There are moderate multilevel degenerative changes in the visualized spine. A slight retrolisthesis is present of T12 on L1. Soft tissues:Unremarkable. Upper abdomen:Unremarkable. CT/Chest without Contrast IMPRESSION: 1. Pulmonary findings including small peribronchial patches of pulmonary consol idation in the left upper lobe, subtle multifocal ground-glass opacities and mild peripheral reticular opacities throughout the l ungs. Differential considerations include mild pulmonary edema, bronchitis/bronchiolitis with early infectious or inflammatory pneumonitis. The interstitial opacities may be due to mild chronic fibrotic changes or interstitial edema. 2. A couple of small pulmonary nodules are present. Follow-up is recommended i n 12 months. 3. Chronic vertebral compression fractures at T11 and T12. Reading Location: [facility]
== END | disposition home or self-care (01) ==
LOC: CT 11:36
PROVIDERS: PCP Family Medicine; Referring Provider Internal Medicine Pulmonary Disease; Visit Provider Internal Medicine Pulmonary Disease
DX: J45.40 Moderate persistent asthma, uncomplicated (principal)
CPT/HCPCS: 71250

== ENCOUNTER → 2024-09-09 | Outpatient (CLI) | payer MEDICARE, SELFPAY ==
--- OUTSIDE RECORDS SUMMARY | 2024-09-09 22:19 | XMS RPT_ITS | CCD ---
Author Organization [facility] Care Team Providers Care Human Resource Statistician Name Role Phone Cezar MERCADO, Jose Gomez Primary Care Provider JOSE ROBB Primary Care Unavaila ble LYN, GORDON TANYA Attending Unavailable LYN, GORDON TANYA Referring Unavailable LYN, GORDON TANYA Attending Unavailable JOSE ROBB Primary Care Unavaila ble LYN, GORDON TANYA Referring Unavailable LYN, GORDON TANYA Attending Unavailable JOSE ROBB Primary Care Unavaila ble LYN, GORDON TANYA Referring Unavailable CEZARJOSE HARDY Primary Care Unavaila ble LYN, GORDON TANYA Attending Unavailable LYN, GORDON TANYA Referring Unavailable LYN, GORDON TANYA Attending Unavailable CEZARJOSE HARDY Primary Care Unavaila ble LYN, GORDON TANYA Referring Unavailable Dr. Elio Cedeño Primary Care Provider Dr. Elio Cedeño Referring Provider Dr. Nitish Maher Attending Provider [phone] Dr. Doug Solomon Attending Provider Jose Robb MD Primary Care Provider JOSE ROBB Primary Care Unavaila ble LYN, GORDON MARTÍNEZ Attending Unavailable JOSE ROBB Primary Care Unavaila ble KIP RAMIREZ Attending Unavailable Dr. Elio Cedeño MD Primary Care Provider [phone] Dr. Jacek Anaya MD, V Attending Provider Dr. Jacek Anaya MD, V Referring Provider Elio Cedeño Primary Care Unavailable Jacek Anaya V Attending Unavailable Sibalphonso, Jacek Jung Referring Unavailable Sibalphonso, Jacek Jung Attending Unavailable Jaclyn, Jacek Jung Referring Unavailable Elio Cedeño Primary Care Unavailable Elio Cedeño Primary Care Unavailable Sibalphonso, Jacek Jung Attending Unavailable Jaclyn, Jacek Jung Referring Unavailable Cedeño, Elio Primary Care Unavailable Jaclyn, Jacek Jung Attending Unavailable Elio Cedeño Primary Care Unavailable TOBY, OLIVA Attending Unavailable OLIVA LUIS Referring Unavailable Jose Luis Pettit Attending Unavailable Elio Cedeño Primary Care Unavailable Cedeño, Elio Attending Unavailable Cedeño, Elio Referring Unavailable Allergies Allergy Classification Reported Allergen(s) Allergy Type Date of Onset Reaction(s) Facility (20 sources) Sulfonamides (Antibiotic); Translations: [SULFA (SULFONAMIDE ANTIBIOTICS)] Propensity to adverse reactions 4 Shortness Of Breath [facility] Medications Current Medications Medication Drug Class(es) Dates Sig (Normalized) Sig (Original) atorvastatin 40 mg oral tablet (16 sources) HMG-CoA Reductase Inhibitor Start: 08-11-2022 Atorvastatin Active MG PO August 11, 2022 12:00am Start: 12-29-2021 End: 01-31-2024 Atorvastatin 40 mg tablet Ac tive mg PO August 11, 2022 12:00am latanoprost 0.05 mg/ml ophthalmic solution (14 sources) Prostaglandin Analog Start: 08-11-[address] 0.005 % drops Active NMA OPHTHALMIC August 11, 2022 12:00am Start: 12-17-2021 take 1 drop(s) into the eye(s) once daily latanoprost (XALATAN) 0.005 % ophthalmic solution Administer 1 (one) drop to both eyes nightly . 12/17/2021 Active meloxicam 15 mg oral tablet (5 sources) Nonsteroidal Anti-inflammatory Drug Start: 08-11-2022 Meloxicam 15 mg tablet Active mg PO August 11, 2022 12:00am Start: 08-11-2022 Meloxicam Acti ve MG PO August 11, 2022 12:00am 24 hr metoprolol succinate 25 mg extended release oral tablet (15 sources) beta-Adrenergic Erendira Start: 08-11-2022 take 1 tablet by mouth every twenty-four hours Metoprolol Succinate 25 mg tablet extended release 24 hr Active mg PO August 11, 2022 12:00am Start: 08-11-2022 Metoprolol Suc cinate Active MG PO August 11, 2022 12:00am Start: 02-08-2022 End: 12-26-2024 take 1 tablet by mouth once daily metoprolol succinate (TOPROL-XL) 25 MG 24 hr tablet Take 1 (one) tablet (25 mg total) by mouth daily . 90 tablet 3 03/15/2023 12/27/2023 Discontinued Completed/Discontinued Medications Medication Drug Class(es) Dates Sig (Normalized) Sig (Original) lutein 25 mg / zeaxanthin 5 mg oral capsule (8 sources) Start: 03-23-2020 End: 08-11-2022 take 1 capsule by mouth once daily Lutein-Zeaxanthin 1 EACH capsule Discontinued 2 NMA PO DAILY March 23, 2020 1:00am August 11, 2022 2:23pm Start: 03-23-2020 End: 08-11-2022 take 2 capsules by mouth once daily Lutein-Zeaxanthin Discontinued 2 CAP PO DAILY March 23, 2020 1:00am August 11, 2022 2:23pm Problems Active Problems Problem Classification Problem Date Documented Da te Episodic/Chronic Asthma (2 sources) Moderate persistent asthma, uncomplicated; Translations: [Moderate persistent asthma, uncomplicated] Onset: 05-02-2024 Chronic Coronary atherosclerosis and other heart disease (2 sources) Angina pectoris; Translations: [Angina pectoris, unspecified] Chronic Disorders of lipid metabolism (12 sources) Dyslipidemia; Translations: [Hyperlipidemia, unspecified] Onset: 12-29-2021 Chronic Essential hypertension (5 sources) Hypertensive disorder; Translations: [Essential (primary) hypertension] 08-11-2022 Chronic Other acquired deformities (5 sources) Scoliosis deformity of spine; Translations: [Scoliosis, unspecified] 08-11-2022 Chronic Other acquired deformities (3 sources) Scoliosis, unspecified; Translations: [Scoliosis [and kyphoscoliosis], idiopathic] 08-11-2022 Chronic Other lower respiratory disease (1 source) Dyspnea; Translations: [Shortness of breath] Episodic Other lower respiratory disease (2 sources) Shortness of breath; Translations: [Shortness of breath] Onset: 01-25-2022 Episodic Residual codes; unclassified (2 sources) Family history of ischemic heart disease and other diseases of the circulatory system; Translations: [Family history of ischemic heart disease and other diseases of the circulatory system] Onset: 12-29-2021 Episodic Spondylosis; intervertebral disc disorders; other back problems (8 sources) Degeneration of lumbar intervertebral disc; Translations: [Other intervertebral disc degeneration, lumbar region] 08-11-2022 Chronic Spondylosis; intervertebral disc disorders; other back problems (5 sources) Low back pain; Translations: [Low back pain] 08-11-2022 Episodic Past or Other Problems Problem Classification Problem Date Documented Da te Episodic/Chronic Other lower respiratory disease (12 sources) Dyspnea on exertion; Translations: [Other forms of dyspnea] Onset: 12-29-2021 Episodic Other lower respiratory disease (3 sources) Other forms of dyspnea; Translations: [Other forms of dyspnea] Onset: 12-29-2021 Episodic Other non-traumatic joint disorders (1 source) Pain in left hip; Translations: [Pain in left hip] Onset: 09-05-2023 Episodic Residual codes; unclassified (10 sources) Family history of coronary arteriosclerosis; Translations: [Family history of ischemic heart disease and other diseases of the circulatory system] Onset: 12-29-2021 Episodic Unclassified (1 source) Labs Only Onset: 11-15-2023 Results Test Name Value Interpretation Reference Range Facility Chest without Contraston Chest without Contrast [facility] [address] [place] [address] [id number] Chest without Contrast MR#: [id number] Acct: [id number] Name: EMILIA SOMMERS Rep #: [id number] : 1945 F 78 From: Osiris Sam MD PCP: Dr. Elio Cedeño MD Status: REG CLI Study: Chest without Contrast Date of Exam: 05/09/24 Exam# [id number] Ordering Dr: Jacek Anaya MD PROCEDURE: CHEST WITHOUT CONTRAST 05/09/2024 REASON FOR EXAM: ASTHMA TECHNIQUE: Chest CT without contrast. Coronal and Sagittal reconstruction series were provided. One or more dose reduction techniques were used (e.g., Automated exposure control, adjustment of the mA and/or kV according to patient size, use of iterative reconstruction technique COMPARISON: 12/28/2023; 03/23/2020 FINDINGS: Lungs/Pleura:A couple of small focal patchy areas of consolidation are present in the peribronchial region of the left upper lobe. Additionally, there are small multifocal areas of subtle ground-glass opacity throughout the lungs bilaterally. There are mild peripheral reticular opacities throughout the lungs, which are greatest in the lung bases. A peribronchial nodule in the left upper lobe measures 4.3 mm on image 45 of series 4. A tiny pulmonary nodule is present in the right lung apex measuring 2 mm on image 21 of series 4. No pleural effusion or pneumothorax. Cardiovascular:The heart is normal in size.[id number] coronary artery calcifications are present.There are mild scattered atherosclerotic calcifications in the thoracic aorta. The pulmonary arteries are unremarkable. Pericardium:No effusion. Mediastinum:Unremarka ble. Lymph nodes:No lymph node enlargement identified on this noncontrast CT. Bones:Chronic vertebral compression fractures are present at the superior endplate of T11 and T12. There are moderate multilevel degenerative changes in the visualized spine. A slight retrolisthesis is present of T12 on L1. Soft tissues:Unremarkable. Upper abdomen:Unremarkable. CT/Chest without Contrast IMPRESSION: 1. Pulmonary findings including small peribronchial patches of pulmonary consolidation in the left upper lobe, subtle multifocal ground-glass opacities and mild peripheral reticular opacities throughout the lungs. Differential considerations include mild pulmonary edema, bronchitis/bronchioli tis with early infectious or inflammatory pneumonitis. The interstitial opacities may be due to mild chronic fibrotic changes or interstitial edema. 2. A couple of small pulmonary nodules are present. Follow-up is recommended in 12 months. 3. Chronic vertebral compression fractures at T11 and T12. Reading Location: [facility] CC: Dr. Elio Cedeño MD; Dr. Jacek Anaya MD Shell Grader: Signed Normal [facility] CBC-Complete Blood Cnt No Di ffon 05-02-2024 CBC panel Auto (Bld) Normal [facility] Comment on above: Performed By: #### L 100.0500 #### [facility] [address] [place], [address] Erythrocyte distribution wid th ratioOrdered By: Jacek Anaya on 05-02-2024 Erythrocyte distribution width (RBC) [Ratio] 18.6 % High 11.6-14.6 [facility] Erythrocyte distribution wid th standard deviationOrdered By: Jacek Anaya on 05-02-2024 Erythrocyte distribution width (RBC) [Entitic vol] 68.9 fL High 35.1-43.9 [facility] Hematocrit Auto (Bld) [Volum e fraction]Ordered By: Jacek Anaya on 05-02-2024 Hematocrit (Bld) [Volume fraction] 29.1 % Low 37-47 [facility] Hemoglobin measurementOrdere d By: Jacek Anaya on 05-02-2024 Hemoglobin (Bld) [Mass/Vol] 9.2 g/dL Low 12.0-15.0 [facility] MCV (mean corpuscular volume ) determinationOrdered By: Jacek Anaya on 05-02-2024 MCV (RBC) [Entitic vol] 102.5 fL High 81-99 [facility] Mean corpuscular hemoglobin (MCH) determinationOrdered By: Jacek Anaya on 05-02-2024 MCH (RBC) [Entitic mass] 32.4 pg High 27.0-32.0 [facility] Mean corpuscular hemoglobin concentration (MCHC) determinationOrdered By: Jacek Anaya on 05-02-2024 MCHC (RBC) [Mass/Vol] 31.6 g/dL Low 32-36 [facility] Mean platelet volume determi nationOrdered By: Jacek Anaya on 05-02-2024 Platelet mean volume (Bld) [Entitic vol] 12.3 fL High 6.2-12.0 [facility] Platelet countOrdered By: Melanie Anaya on 05-02-2024 Platelets (Bld) [#/Vol] 270 10*3/uL 150-450 [facility] RBC Auto (Bld) [#/Vol]Ordere d By: Jacek Anaya on 05-02-2024 RBC (Bld) [#/Vol] 2.84 10*6/uL Low 4.2-5.4 [facility] White blood cell (WBC) count Ordered By: Jacek Anaya on 05-02-2024 WBC (Bld) [#/Vol] 7.4 10*3/uL 4.4-11.0 [facility] Chest PA and Lateralon 12-27 Chest PA and Lateral [facility] [address] [place] [address] Chest PA and Lateral MR#: [id number] Acct: [id number] Name: EMILIA SOMMERS Rep #: [id number] : 1945 F 78 From: Stu Bustillo DO PCP: Dr. Elio Cedeño MD Status: REG CLI Study: Chest PA and Lateral Date of Exam: 12/28/23 Exam# [id number] Ordering Dr: Jacek Anaya MD [id number] INDICATION: MOD PERS ASTHMA/SOB/COUGH EXAMINATION/TECHNIQUE : X-RAY - XR Chest 2 Views COMPARISON: March 23, 2020 __ FINDINGS: LINES/DEVICES: None. LUNGS: No consolidation, edema or effusion. No pneumothorax. MEDIASTINUM AND CARDIOVASCULAR STRUCTURES: Cardiac silhouette not enlarged. Central airways and mediastinal contour are unremarkable. BONES AND SOFT TISSUES: Degenerative vertebral changes and scoliosis. RAD/Chest PA and Lateral IMPRESSION: No radiographic evidence of acute cardiopulmonary disease. Electronically Signed: Stu Bustillo DO at 9:53 EST Reading Location ID and State: [facility] / [place] Tel [phone], Service support , CC: Dr. Elio Cdeeño MD; Dr. Jacek Anaya MD Shell Grader: Signed Normal [facility] Lyme Screen W/Reflex WBon LYME SCREEN Ab Negative Normal Negative [facility] Comment on above: Result Comment: Lyme antibodies not detected. Reflex testing is not indicated. No laboratory evidence of infection with B. burgdorferi (Lyme disease). Negative results may occur in patients recently infected (less than or equal to 14 days) with B. burgdorferi. If recent infection is suspected, repeat testing on a new sample collected in 7 to 14 days is recommended. Performed at: [address] [id number] Lead Portfolio Manager: Magdiel Styles PhD, Phone: [phone] Performed By: #### L 7000.5300 #### [facility] [address] [place], [place], [address] Hips B/L min 2 views w/ Pelv melanie 08-24-2023 Hips B/L min 2 views w/ Pelvis [facility] [address] [place], [place] [address] Hips B/L min 2 views w/ Pelvis MR#: [id number] Acct: [id number] Name: EMILIA SOMMERS Rep #: [id number] : 1945 F 77 From: James Del Cid MD PCP: Dr. Elio Cedeño MD Status: [facility] CLI Study: Hips B/L min 2 views w/ Pelvis Date of Exam: 0 08/24/23 Exam# [id number] Ordering Dr: Elio Cedeño MD [id number] INDICATION: LEFT HIP PAIN EXAMINATION/TECHNIQUE : X-RAY - XR Hips Bilateral with Pelvis when performed; Min 5 Views COMPARISON: 01/10/2022 __ FINDINGS: PELVIC BONES: No displaced fracture, destructive or sclerotic lesions. Note that overlapping bowel shadows may however obscure fine detail. Sacroiliac joints are unremarkable. No widening of the pubic symphysis. HIPS: Mild joint space narrowing of both hip joints consistent with mild arthrosis. No displaced fracture seen in this frontal view. SOFT TISSUES: No soft tissue swelling or gas. RAD/Hips B/L min 2 views w/ Pelvis IMPRESSION: No evidence of displaced pelvic or hip fracture. Mild bilateral hip arthrosis. Electronically Signed: James Del Cid MD at 9:58 EDT , CC: Dr. Elio Cedeño MD Shell Grader: Signed Normal [facility] Shoulder min 2 Viewson 08-23 Shoulder min 2 Views [facility] [address] [place], [place] [id number] Shoulder min 2 Views MR#: [id number] Acct: [id number] Name: EMILIA SOMMERS Rep #: [id number] : 1945 F 77 From: James Del Cid MD PCP: Dr. Elio Cedeño MD Status: REG CL Study: Shoulder min 2 Views Date of Exam: 08/24/23 Exam# [id number] Ordering Dr: Elio Cedeño MD [id number] STUDY: X-RAY - LEFT SHOULDER REASON FOR EXAM: Female, 77 years old. PAIN TECHNIQUE: 4 view(s) of the shoulder. COMPARISON: 06/10/2015 FINDINGS: There is mild degenerative arthrosis of the glenohumeral articulation. There is degenerative arthrosis of the acromioclavicular joint without inferior osseous spur formation. Normal acromion. Normal humeral head and visualized proximal humerus. The soft tissue structures are unremarkable. Normal visualized pulmonary apex. RAD/Shoulder min 2 Views IMPRESSION: Mild glenohumeral and acromioclavicular joint arthrosis. Electronically Signed: aJmes Del Cid MD at 10:03 EDT , CC: Dr. Elio Cedeño MD Shell Grader: Signed Normal [facility] Shoulder min 2 Views [facility] [address] [place] [address] Shoulder min 2 Views MR#: [id number] Acct: [id number] Name: EMILIA SOMMERS Rep #: [id number] : 1945 F 77 From: James Del Cid MD PCP: Dr. Elio Cedeño MD Status: REG CLI Study: Shoulder min 2 Views Date of Exam: 08/24/23 Exam# [id number] Ordering Dr: Elio Cedeño MD [id number] STUDY: X-RAY - RIGHT SHOULDER REASON FOR EXAM: Female, 77 years old. PAIN TECHNIQUE: 4 view(s) of the shoulder. COMPARISON: None. FINDINGS: There is mild degenerative arthrosis of the glenohumeral articulation. There is degenerative arthrosis of the acromioclavicular joint without inferior osseous spur formation. Normal acromion. Normal humeral head and visualized proximal humerus. The soft tissue structures are unremarkable. Normal visualized pulmonary apex. RAD/Shoulder min 2 Views IMPRESSION: Mild glenohumeral and acromioclavicular joint arthrosis. Electronically Signed: James Del Cid MD at 9:09 EDT , CC: Dr. Elio Cedeño MD Shell Grader: Signed Normal [facility] Basophil percentageOrdered B y: Elio Cedeño on 09-08-2022 Chloride [Moles/Vol] 107 mmol/L 98-107 [facility] Cholesterol [Mass/Vol] 129 mg/dL <200 [facility] Comment on above: <200 mg/dL Desirable 200-240 mg/dL Borderline >240 mg/dL High Risk Glucose [Mass/Vol] 108 mg/dL 74-106 [facility] Comment on above: Fasting Glucose resu lt from 100 to 125 mg/dL suggests IMPAIRED HOMEOSTASIS per A.D.A. criteria. Potassium [Moles/Vol] 5.0 mmol/L 3.5-5.1 [facility] Sodium [Moles/Vol] 137 mmol/L 136-145 [facility] Triglyceride [Mass/Vol] 71 mg/dL <199 [facility] Comment on above: The drugs N-Acetylcy steine and Metamizole may falsely depress this assay.Serum Triglycerides Reference Interval Normal <150 mg/dL Borderline high 150 - 199 mg/dL High 200 - 499 mg/dL Very High > or = 500 mg/dL Laboratory - Chemistry and C hemistry - challengeOrdered By: Elio Cedeño on 09-08-2022 CO2 [Moles/Vol] 26.0 mmol/L 21.0-32.0 [facility] Urea nitrogen/Creatinine [Mass ratio] 20.7 mg/mg 10-20 [facility] No Panel InformationOrdered By: Elio Cedeño on 09-08-2022 Estimated GFR (MDRD) Amer 43 mL/min >60 [facility] Comment on above: GFR Calc Estimated GFR (MDRD) Non-Af Amer 36 mL/min >60 [facility] Comment on above: Non- GFR Calc Vitamin D 25-Hydroxy 29.0 ng/mL [facility] Comment on above: Vitamin D 25(OH) Sta tus Range Deficiency <20 ng/mL (50nmol/L) Insufficiency 20 - 30 ng/mL (50 - 75 nmol/L) Sufficiency 30 - 100 ng/mL (75 - 250 nmol/L) Toxicity >100 ng/mL (>250 nmol/L) Serum or plasma calcium farhad urement (mass/volume)Ordered By: Elio Cedeño on 09-08-2022 Calcium [Mass/Vol] 9.0 mg/dL 8.5-10.1 [facility] Serum or plasma cholesterol in HDL measurement (mass/volume)Ordered By: Elio Cedeño on 09-08-2022 Cholesterol in HDL [Mass/Vol] 57 mg/dL >40 [facility] Comment on above: The drugs N-Acetylcy steine and Metamizole may falsely depress this assay. Reference Range HDL <40 mg/dL Low HDL Cholesterol HDL >or= 60 mg/dL High HDL Cholesterol Serum or plasma cholesterol in VLDL measurement (mass/volume)Ordered By: Elio Cedeño on 09-08-2022 Cholesterol in VLDL [Mass/Vol] 14 mg/dL 5-40 [facility] Serum or plasma creatinine m easurement (mass/volume)Ordered By: Elio Cedeño on 09-08-2022 Creatinine [Mass/Vol] 1.50 mg/dL 0.55-1.02 [facility] Comment on above: The validity of the calculated GFR & GFRAA in patients over 70 years has not been determined. Clinical correlation is essential. Serum or plasma low density lipoprotein (LDL) cholesterol measurement (mass/volume)Ordered By: Elio Cedeño on 09-08-2022 Cholesterol in LDL [Mass/Vol] 58 mg/dL 0-130 [facility] Serum or plasma urea nitroge n measurement (mass/volume)Ordered By: Elio Cedeño on 09-08-2022 Urea nitrogen [Mass/Vol] 31 mg/dL 7-18 [facility] Serum or plasma uric acid me asurement (mass/volume)Ordered By: Elio Cedeño on 09-08-2022 Urate [Mass/Vol] 6.9 mg/dL 2.6-6.0 [facility] Comment on above: The drugs N-Acetylcy steine and Metamizole may falsely depress this assay. Thin prep Papanicolaou smear with manual screeningOrdered By: Elio Cedeño on 09-08-2022 Thin prep Papanicolaou smear with manual screening 4 5-15 [facility] Basophil percentageon 2021 Chloride [Moles/Vol] 108 mmol/L 98-107 [facility] Work Phone: Cholesterol [Mass/Vol] 213 mg/dL <200 [facility] Work Phone: Comment on above: <200 mg/dL Desirable 200-240 mg/dL Borderline >240 mg/dL High Risk Glucose [Mass/Vol] 101 mg/dL 74-106 [facility] Work Phone: Comment on above: Fasting Glucose resu lt from 100 to 125 mg/dL suggests IMPAIRED HOMEOSTASIS per A.D.A. criteria. Potassium [Moles/Vol] 4.2 mmol/L 3.5-5.1 [facility] Work Phone: Sodium [Moles/Vol] 141 mmol/L 136-145 [facility] Work Phone: [phone] Triglyceride [Mass/Vol] 102 mg/dL <199 [facility] Work Phone: [phone] Comment on above: The drugs N-Acetylcy steine and Metamizole may falsely depress this assay.Serum Triglycerides Reference Interval Normal <150 mg/dL Borderline high 150 - 199 mg/dL High 200 - 499 mg/dL Very High > or = 500 mg/dL Laboratory - Chemistry and C hemistry - challengeon 09-06-2021 CO2 [Moles/Vol] 26.0 mmol/L 21.0-32.0 [facility] Work Phone: Urea nitrogen/Creatinine [Mass ratio] 15.4 mg/mg 10-20 [facility] Work Phone: No Panel Informationon 09-06 Estimated GFR (MDRD) Amer 77 mL/min >60 [facility] Work Phone: Comment on above: GFR Calc Estimated GFR (MDRD) Non-Af Amer 64 mL/min >60 [facility] Work Phone: Comment on above: Non- GFR Calc Vitamin D 25-Hydroxy 24.6 ng/mL [facility] Work Phone: [phone] Comment on above: Vitamin D 25(OH) Sta tus Range Deficiency <20 ng/mL (50nmol/L) Insufficiency 20 - 30 ng/mL (50 - 75 nmol/L) Sufficiency 30 - 100 ng/mL (75 - 250 nmol/L) Toxicity >100 ng/mL (>250 nmol/L) Serum or plasma calcium farhad urement (mass/volume)on 09-06-2021 Calcium [Mass/Vol] 9.0 mg/dL 8.5-10.1 [facility] Work Phone: [phone] Serum or plasma cholesterol in HDL measurement (mass/volume)on 09-06-2021 Cholesterol in HDL [Mass/Vol] 53 mg/dL >40 [facility] Work Phone: Comment on above: The drugs N-Acetylcy steine and Metamizole may falsely depress this assay. Reference Range HDL <40 mg/dL Low HDL Cholesterol HDL >or= 60 mg/dL High HDL Cholesterol Serum or plasma cholesterol in VLDL measurement (mass/volume)on 09-06-2021 Cholesterol in VLDL [Mass/Vol] 20 mg/dL 5-40 [facility] Work Phone: Serum or plasma creatinine m easurement (mass/volume)on 09-06-2021 Creatinine [Mass/Vol] 0.91 mg/dL 0.55-1.02 [facility] Work Phone: Comment on above: The validity of the calculated GFR & GFRAA in patients over 70 years has not been determined. Clinical correlation is essential. Serum or plasma low density lipoprotein (LDL) cholesterol measurement (mass/volume)on 09-06-2021 Cholesterol in LDL [Mass/Vol] 140 mg/dL 0-130 [facility] Work Phone: Serum or plasma urea nitroge n measurement (mass/volume)on 09-06-2021 Urea nitrogen [Mass/Vol] 14 mg/dL 7-18 [facility] Work Phone: Thin prep Papanicolaou smear with manual screeningon 09-06-2021 Thin prep Papanicolaou smear with manual screening 7 5-15 [facility] Work Phone: CORONAVIRUS 2019 BY PCRon SARS-CoV-2 (COVID-19) RNA BRIDGET+probe Ql (Unsp spec) Detected Abnormal Not Detected [facility] Comment on above: Result Comment: . This assay is designed to detect the N, ORF1ab and/or S genes of SARS-CoV-2 via nucleic acid amplification. A Negative (NOT DETECTED) result does not preclude 2019-nCoV infection since the adequacy of sample collection and/or low viral burden may result in presence of viral nucleic acids below the clinical sensitivity of this test method. Negative (NOT DETECTED) result should not be used as the sole basis for treatment or other patient management decisions. Rather negative results should be combined with clinical observations, patient history, and epidemiological information to make patient management decisions. Fact sheet for providers: https://www.fda.gov/media/822289/download Fact sheet for patients: https://www.fda.gov/media/512254/download This test has received FDA Emergency Use Authorization (EUA) and has been verified by [facility] ([facility]). This test is only authorized for the duration of time that circumstances exist to justify the authorization of the emergency use of in vitro diagnostic tests for the detection of SARS-CoV-2 virus and/or diagnosis of COVID-19 infection under section 564(b)(1) of the Act, 21 U.S.C. 360bbb-3(b)(1), unless the authorization is terminated or revoked sooner. [facility] is certified under CLIA-88 as qualified to perform high complexity testing. Testing is performed in the [facility] laboratories located at [address] [place] [address]. Performed By: #### C OV19 #### [address] [place] [address] Covid 19 Resultson 1 SARS-CoV-2 (COVID-19) RNA BRIDGET+probe Ql (Unsp spec) POSITIVE COVID-19 Test Coronaviruses are common world-wide and are the cause of many common colds. SARS-COV2 is a new coronavirus that began circulating worldwide in 2019 so we are calling it COVID-19. It has been estimated that four out of five patients with COVID-19 will recover at home without the need for medical attention. Symptoms of COVID-19 include cough, fever, shortness of breath, loss of taste or smell and other flu-like symptoms including chills, sore muscles, sore throat, and headache. Severe illness is more common in older people and people with other health problems such as high blood pressure, obesity, and immune system problems. If the test is positive, you have COVID-19. You will be contacted by the ordering physicians office and instructed to remain on home isolation, in accordance with CDC guidelines. You may also be contacted by the [facility] to see if any of your close contacts may have been exposed to the virus and need to quarantine. If the test is negative, you likely do not have COVID-19 at this time, but you still may have a different illness that can spread to other people (like Influenza, or the Flu) and could still be at risk for getting COVID-19. We recommend that you stay away from other people to limit the spread of illness until your symptoms are improving and you are fever-free for 24 hours without the use of fever lowering medications such as acetaminophen or ibuprofen. No test is 100% accurate so if you are still concerned you may have COVID-19, talk to your doctor about the need to continue to stay away from others. Medicines Acetaminophen (Tylenol and others) is generally safe. Anti-inflammatory medications, such as Ibuprofen (Advil or Motrin) or Naproxen (Aleve) can also be used. Cbeh-rrv-trlrego cough and cold medicines can be used according to the instructions on the package. Some yptn-jho-rpfqecy medicines also contain acetaminophen. Make sure you are not taking more than your recommended dose For those not hospitalized, there is no specific treatment available for this illness. Antibiotics do not treat Coronaviruses. Follow-Up Follow up with your doctor by scheduling a virtual visit or consider follow-up at one of our urgent care fever clinics. If you are having difficulty breathing, or are very weak and having difficulty standing, this is a medical emergency. Call 911 or have someone take you to the nearest emergency room immediately. If possible, wear a facemask. Additional guidance from the CDC for patients who tested POSITIVE for COVID-19 How to isolate: Isolate yourself in a specific room at home and limit your contact with others. Use a separate bathroom from other members of the household, when possible. Leave home only to get essential medical care. Do not go to work, school or public areas. Avoid using public transportation, ride-sharing, or taxis. Restrict contact with pets and other animals. If you must care for your pet or be around animals while you are sick, wash your hands before and after your interaction and wear a facemask. Make sure that shared spaces in the home have good airflow, such as by an air conditioner or an opened window, weather permitting. Personal Hygiene Procedures: Wear a face mask when in the same room as other people or pets. If a face mask interferes with your breathing, others should wear a mask when sharing space with you. Frequent hand-washing: wash your hands with soap and water for at least 20 seconds. If soap and water are not available, use alcohol-based hand internet e commerce specialist. Avoid touching your eyes, nose, and mouth with unwashed hands. Household Hygiene Procedures: Avoid sharing personal household items such as dishes, glassware, cups, eating utensils, towels or bedding with other people or pets in your home. After use, these items should be washed with soap and hot water. Disinfect all high-touch surfaces every day with antibacterial cleaning solutions such as Lysol wipes, bleach, cleansers, etc. High-touch surfaces include tabletops, doorknobs, bathroom fixtures, toilets, phones, keyboards, tablets and bedside tables. Immediately clean any surfaces that may have blood, poop or body fluids on them, using antibacterial cleaning solutions such as Lysol wipes, bleach, cleansers, etc. If clothing or bedding come into contact with blood, poop or body fluids, they should be washed immediately. Follow the directions on the laundry detergent and clothing labels but hot water is recommended when possible. Stopping home isolation precautions: If possible, consult your doctor before stopping home isolation precautions. According to the CDC, you can discontinue home isolation precautions when you have met both of these criteria: Your fever and respiratory symptoms have been gone for 24 hours without the use of any medicines like ibuprofen (Motrin) (more content not included)... [facility] CORONAVIRUS 2019 BY PCRon DATE OF SYMPTOM ONSET [YYYYMMDD]? 20200317 [facility] Comment on above: Performed By: #### C OV19 #### [facility] [address] [place] [address] Lab Specimen Source Nasal, Nasopharyngeal [facility] Comment on above: Performed By: #### C OV19 #### [facility] [address] [place] [address] Provider Note - ED v2on Provider Note - ED v2 Provider Note - ED v2: Chart Review HISTORY OF PRESENTING ILLNESS EMILIA is a 74 year old Female and was seen by me at 18-Mar-2020 16:45. Triage Information: Most recent Vital Sign Value Date PAST MEDICAL HISTORY ATTESTATION: I have reviewed and confirmed nurse's/medic's notes for patient's medications, allergies, and medical, surgical, family and social history ALLERGIES/INTOLERANCE S: Allergy Allergen: sulfa drugs Type: Drug Category Reaction: Throat Swelling HEALTH HISTORY: No documented data. OUTPATIENT MEDICATIONS: Home Medications Review Status for Reconciliation: Complete Med Status: No Current Medications SIGNIFICANT EVENTS: No documented data. RESULTS/VITAL SIGNS VITAL SIGNS: T PRBP SpO2O2(LPM) %FiO2 Method 18-Mar-2020 17:06:[id number]/ 83 95 MEDICAL DECISION MAKING/ED COURSE MDM/ED COURSE: This note was generated with voice recognition software and may contain errors including spelling, grammar, syntax, and misrecognization of what was dictated Chief Complaint COVID symptoms History of Present Illness Patient presents with COVID symptoms for approximately 5 days. Symptoms include fever, headache, cough. Patient denies use of any zptz-pad-rklmzcc medications at home prior to arrival for symptom management. Only time has made their symptoms worse or nothing makes them better. Review of Systems 10 systems reviewed negative with exception of history of present illness listed above Physical Examination General: Alert and oriented, No acute distress. Eye: Pupils are equal, round and reactive. HENT: Normocephalic Neck: Supple Respiratory: Respirations are non-labored, Symmetrical chest wall expansion Musculoskeletal: Normal range of motion, normal strength, no tenderness, no swelling. Integumentary: [place], warm, dry, and Intact. Neurologic: Alert, Oriented, Normal sensory, Normal motor function. Cognition and Speech: Oriented, Speech clear and coherent. Psychiatric: Cooperative, Appropriate mood & affect. Impression and Plan Course: Worsening Plan: I reviewed the COVID-19 algorithm, reviewed the algorithm & symptoms with the patient, and counseled the patient on COVID-19 current recommendations. It was determined the patient's symptoms are consistent with need for testing for COVID-19, using proper PPE, we were able to obtain a nasal swab without incident. Patient is instructed to isolate at home until a negative test result is returned. Patient agrees with plan of care, questions were encouraged and answered. Patient Instructions: COVID-19 CLINICAL IMPRESSION Diagnosis/Annotation: ED Dx Name:Acute upper respiratory infection Code:J06.9 Disposition: discharged Type: home ATTESTATION CRITICAL CARE TIME Is this a critically ill patient: no Electronic Signatures for Addendum Section: Prashant Terry ([facility] (Signed Addendum 19-Mar-2020 08:25) Patient was notified of her positive coronavirus test result on 03/19/2020 at approximately 8:25 AM Electronic Signatures: Prashant Terry ([facility]) (Signed 19-Mar-2020 08:24) Authored: HPI, PMH, PE, Results/Vital Signs, MDM/ED Course, Clinical Impression, Attestation, Chart Review, Scores Last Updated: 19-Mar-2020 08:25 by Prashant Terry ([facility]) [facility] Vital Signs Date Time Vital Sign Value Performing Clinician Loly torre 08-11-2022 14:22-0400 Body height 160.[address] Elio Cedeño Work Phone: [facility] 08-11-2022 14:22-0400 Body mass index (BMI) [Ratio] 27.4 kg/m2 Dr. Elio Cedeño Work Phone: [facility] 08-11-2022 14:22-0400 Body weight 70.[address] Elio Cedeño Work Phone: [facility] 12-29-2021 12:38-0500 Diastolic blood pressure 70 mm[Hg] Gordon Lyn MD Work Phone: [facility] 12-29-2021 12:38-0500 Systolic blood pressure 124 mm[Hg] Gordon Lyn MD Work Phone: [facility] 12-29-2021 12:31-0500 Body height 158.8 cm Gordon Lyn MD Work Phone: [facility] 12-29-2021 12:31-0500 Body mass index (BMI) [Ratio] 27.72 kg/m2 Gordon Lyn MD Work Phone: [facility] 12-29-2021 12:31-0500 Body weight 69.85 kg Gordon Lyn MD Work Phone: [facility] 12-29-2021 12:31-0500 Heart rate 84 /min Gordon Lyn MD Work Phone: [facility] 12-29-2021 12:31-0500 SaO2% (BldA) [Mass fraction] 95 % Gordon Lyn MD Work Phone: [facility] Encounters Encounter Date Encounter Type Care Provider Facility Start: 05-09-2024 End: 05-09-[address] Elio Cedeño MD Work Phone: [facility] Work Phone: Start: 05-09-2024 End: 05-09-[address] Jacek Anaya MD -[facility] Work Phone: Start: 05-09-2024 End: 05-09-2024 ambulatory Elio Cedeño Facility:[facility] Start: 05-02-2024 End: 05-02-[address] Elio Cedeño MD Work Phone: [facility] Work Phone: Start: 05-02-2024 End: 05-02-[address] Jacek Anaya MD -[facility] Work Phone: Start: 05-02-2024 End: 05-02-2024 ambulatory Jacek Anaya Facility:[facility] Start: 12-28-2023 End: 12-28-2023 ambulatory Elio Cedeño Facility:[facility] Start: 12-26-2023 End: 12-27-2023 Refill Gordon Lyn MD Work Phone: [facility] Comment on above: Medication Refill (M etoprolol Succ ) Start: 12-17-2023 End: 12-18-2023 Refill Gordon Lyn MD Work Phone: [facility] Comment on above: Medication Refill (A torvastatin ) Start: 11-15-2023 ambulatory JOSE ROBB [facility] Start: 11-10-2023 ambulatory JOSE GOMEZ CEZAR [facility] Start: 11-03-2023 End: 11-03-2023 Orders Only Josselin Guaman RN [facility] Comment on above: PATEL (dyspnea on exer tion) (Primary Dx) Start: 10-25-2023 End: 10-25-2023 ambulatory Elio Cedeño Facility:[facility] Start: 09-27-2023 End: 09-27-2023 Orders Only Josselin Guaman RN [facility] Comment on above: PATEL (dyspnea on exer tion) (Primary Dx) Start: 09-25-2023 End: 09-25-2023 Documentation procedure Gordon Lyn MD Work Phone: [facility] Start: 08-24-2023 End: 08-24-2023 ambulatory Elio Cedeño Facility:[facility] Start: 01-31-2023 Refill Gordon gates MD Work Phone: [facility] Comment on above: Medication Refill Start: 11-29-2022 End: 11-29-[address] Elio Cedeño Work Phone: [facility] Work Phone: Start: 11-29-2022 End: 11-29-[address] Elio Cedeño Work Phone: [facility]-Outpatient Breast Imaging Work Phone: Start: 09-08-2022 End: 09-08-[address] Elio Cedeño Work Phone: [facility] Work Phone: Start: 09-08-2022 End: 09-08-[address] Elio Cedeño Work Phone: [facility] Work Phone: Start: 08-11-2022 End: 08-11-[address] Elio Cedeño Work Phone: [facility] Work Phone: Start: 08-05-2022 End: 08-05-[address] Elio Cedeño Work Phone: [facility] Work Phone: Start: 08-05-2022 End: 08-05-[address] Elio Cedeño Work Phone: [facility]-Physical Therapy Work Phone: Start: 08-05-2022 Registered Recurring [facility] Start: 08-04-2022 End: 08-04-2022 ambulatory [facility] Work Phone: Start: 08-04-2022 End: 08-04-2022 Patient encounter procedure [facility] Start: 01-25-2022 End: 01-26-2022 [facility] Start: 01-10-2022 End: 01-10-2022 ambulatory [facility] Work Phone: Start: 01-10-2022 End: 01-10-2022 [facility] Start: 12-29-2021 End: 12-29-2021 Office outpatient new 30 minutes Gordon Lyn MD Work Phone: [facility] Comment on above: Dyslipidemia (Primar y Dx); PATEL (dyspnea on exertion); FH: CAD (coronary artery disease) Start: 09-16-2021 End: 09-16-2021 Patient encounter procedure [facility]-Outpatient Bone Densitometry Start: 09-06-2021 End: 09-06-2021 Patient encounter procedure [facility]-Laboratory, [facility] Start: 09-03-2021 Orders Only Ann Nance RN [facility] Comment on above: Angina pectoris (HCC ) (Primary Dx); Coronary artery disease, unspecified vessel or lesion type, unspecified whether angina present, unspecified whether [place] or transplanted heart; SOB (shortness of breath) Procedures Date Procedure Procedure Detail Performing Clinician Start: 05-09-2024 CT of chest without contrast Dr. Elio Cedeño MD Work Phone: Start: 11-29-2022 Screening mammography Roe Cedeño Work Phone: Start: 09-08-2022 Radiologic examinati on of knee Dr. Elio Cedeño Work Phone: Start: 08-11-2022 X-ray of lumbar spin e, two or three views Dr. Elio Cedeño Work Phone: Start: 08-04-2022 MRI of lumbar spine Start: 01-10-2022 Plain x-ray of pelvi s and lower extremity Start: 01-10-2022 Radiography of sacrococcygeal spine Start: 01-10-2022 X-ray of both feet Start: 09-16-2021 End: 09-16-2021 Screening mammography of bilateral breasts Plan of Treatment Date Care Activity Detail Author Start: 06-09-2025 Tetanus vaccination Tetanus: Every 10yrs [facility] Start: 10-15-2023 COVID-19 Vaccine ( season) COVID-19 Vaccine ( season) [facility] Start: 10-15-2023 COVID-19 Vaccine ( season) COVID-19 Vaccine ( season) [facility] Start: 10-15-2023 Influenza vaccination Influenza Vaccine (#1) [facility] Start: 10-14-2022 COVID-19 Vaccine ( season) COVID-19 Vaccine ( season) [facility] Start: 10-14-2022 Influenza vaccination Sequential Influenza Vaccine (#1) [facility] Start: 09-16-2022 Screening for malignant neoplasm of breast Mammogram [facility] Start: 01-25-2022 End: 01-25-2022 Patient encounter procedure 01/25/2022 Appointment Cardiology Gordon Lyn MD [address] [facility] [address] [place] [address] [facility] Start: 01-25-2022 End: 01-25-2022 Patient encounter procedure 01/25/2022 Appointment Cardiology Gordon Lyn MD [address] [facility] [address] [place] [address] [facility] Start: 12-29-2021 End: 12-29-2021 Patient encounter procedure 12/29/2021 Office Visit Cardiology Gordon Lyn MD [address] [facility] [address] [place] [address] [facility] Start: 10-14-2021 Influenza vaccination Sequential Influenza Vaccine (#1) [facility] Start: 09-16-2021 Dual energy X-ray absorptiometry Dexa Bone Density Study [facility] Work Phone: Start: 09-16-2021 DXA Bone [Mass/Area] Bone density [facility] Work Phone: Start: 06-10-2020 COVID-19 Vaccine (2 - Moderna series) COVID-19 Vaccine (2 - Moderna series) [facility] Start: 10-04-2019 Respiratory Syncytial Virus Immunization: Risk, 60-74 Risk, or 75+ (1 - 1-dose 75+ series) Respiratory Syncytial Virus Immunization: Risk, 60-74 Risk, or 75+ (1 - 1-dose 75+ series) [facility] Start: 05-22-2019 Pneumococcal Vaccine: Age 65+ (2 - PCV) Pneumococcal Vaccine: Age 65+ (2 - PCV) [facility] Start: 05-22-2019 Pneumococcal Vaccine: Age 65+ (2 of 2 - PCV) Pneumococcal Vaccine: Age 65+ (2 of 2 - PCV) [facility] Start: 2009 Fall risk assessment Falls Risk Assessment [facility] Start: 2009 Pneumococcal Vaccine: Age 65+ (1 - PCV) Pneumococcal Vaccine: Age 65+ (1 - PCV) [facility] Start: 1994 Administration of herpes zoster vaccine Zoster Vaccines (1 of 2) [facility] Start: 1962 Hepatitis C screening Hepatitis C Screening [facility] Start: 1956 Depression screening using PHQ-9 (Patient Health Questionnaire 9) score [facility] Start: 10-04-1947 History and physical examination, annual for health maintenance Wellness Visit [facility] Start: 10-04-1947 Medicare Wellness Visit Medicare Wellness Visit [facility] Start: 04-05-1945 COVID-19 Vaccine (#1) COVID-19 Vaccine (#1) [facility] Start: 1944 Screening for osteoporosis Dexa Scan [facility] Start: 1944 Tetanus vaccination Tetanus: Every 10yrs [facility] End: 09-26-2024 Complete PFT with Pre and Post Bronchodilator Complete PFT with Pre and Post Bronchodilator PFT Routine PATEL (dyspnea on exertion) 1 Occurrences starting 09/27/2023 until 09/26/2024 [facility] Work Phone: Comment on above: 1 Occurrences starting 09/27/2023 until 09/26/2024 End: 11-04-2022 Echocardiography Echocardiogram complete Echocardiography Routine SOB (shortness of breath) 1 Occurrences starting 09/03/2021 until 11/04/2022 [facility] Work Phone: Comment on above: 1 Occurrences starting 09/03/2021 until 11/04/2022 End: 12-29-2022 Radionuclide myocardial perfusion study NM Myocardial Perfusion Multiple SPECT Imaging Routine Dyslipidemia PATEL (dyspnea on exertion) FH: CAD (coronary artery disease) 1 Occurrences starting 12/29/2021 until 12/29/2022 [facility] Work Phone: Comment on above: 1 Occurrences starting 12/29/2021 until 12/29/2022 Payers Date Payer Category Payer Self-pay [id number] 2017 Medicare [employer] M [employer] ADVANTAGE CHOICE PPO [id number] 2017-Present [id number] [place] [id number] 2017 Medicare PPO [employer] ADVAN TAGE CHOICE PPO [id number] 2013 Medicare [id number] 1945 Unknown [id number] 1945 Unknown [id number] 1944 Unknown [id number] 1944 Unknown [id number] 1944 Unknown [id number] [id number] 1944 Unknown [id number] [id number] 1945 Unknown [id number] [id number] Unknown [id number] [id number] Unknown [id number] Unknown [id number] [id number] Unknown [id number] Unknown [id number] Unknown [id number] Unknown [id number] Social History Date Type Detail Facility Start: 03-23-2020 End: 08-11-2022 Tobacco smoking status [facility] Tobacco smoking consumption unknown [facility] Start: 1945 Sex Assigned At Not on file [facility] Start: 1945 Sex Assigned At Female W [facility] Start: 12-29-2021 End: 08-11-2022 Tobacco smoking status UTIS Ex-smoker [facility] End: 02-13-1971 History of tobacco use Current smoker [facility] End: 02-13-1971 History of tobacco use Cigarette Smoker [facility] History of tobacco use Passive smoker [facility] Start: 12-29-2021 Tobacco use and exposure Smokeless tobacco non-user [facility] Start: 12-29-2021 Alcohol intake Current drinke r of alcohol (finding) [facility] Start: 12-29-2021 Alcohol Comment Occ [facility] Start: 12-19-2021 End: 12-29-2021 Exposure to SARS-CoV-2 (event) Not sure [facility] Start: 12-29-2021 History of Social function [facility] Start: 12-29-2021 Tobacco use panel [facility] Start: 05-09-2024 End: 05-14-2024 Sex Female (finding) [facility] Clinical Notes 12-29-2021 to 05-10-2024 Telephone Encounter - Kip Ramirez MA - 12/27/2023 11:00 AM ESTTelephone Encounter - Kip Ramirez MA - 12/27/2023 11:00 AM ESTTelephone Encounter - Kip Ramirez MA - 12/26/2023 3:13 PM EST Note Date & Type Note Facility 05-10-2024 Radiology Diagnostic study note [facility] [address] [place], [place] [address] Chest without Contrast MR#: [id number] Acct: [id number] Name: EMILIA SOMMERS Rep #: [id number] : 1945 F 78 From: Shaina Sam MD PCP: Dr. Elio Cedeño MD Status: DELORIS CHURCH Study:Chest without Contrast Date of Exam: 05/09/24 Exam# [id number] Ordering Dr: Jacek Anaya MD PROCEDURE: CHEST WITHOUT CONTRAST 05/09/2024 REASON FOR EXAM: ASTHMA TECHNIQUE: Chest CT without contrast. Coronal and Sagittal reconstruction series were provided. One or more dose reduction techniques were used (e.g., Automated exposure control, adjustment of the mA and/or kV according to patient size, use of iterative reconstruction technique COMPARISON: 12/28/2023; 03/23/2020 FINDINGS: Lungs/Pleura:A couple of small focal patchy areas of consolidation are present in the peribronchial region of the left upper lobe. Additionally, there are small multifocal areas of subtle ground-glass opacity throughout the lungs bilaterally. There are mild peripheral reticular opacities throughout the lungs, which are greatest in the lung bases. A peribronchial nodule in the left upper lobe measures 4.3 mm on image 45 of series 4. A tiny pulmonary nodule is present in the right lung apex measuring 2 mm on image 21 of series 4. No pleural effusion or pneumothorax. Cardiovascular:The heart is normal in size.Born-cg-enanmvxa coronary artery calcifications are present.There are mild scattered atherosclerotic calcifications in the thoracic aorta. The pulmonary arteries are unremarkable. Pericardium:No effusion. Mediastinum:Unremarkable. Lymph nodes:No lymph node enlargement identified on this noncontrast CT. Bones:Chronic vertebral compression fractures are present at the superior endplate of T11 and T12. There are moderate multilevel degenerative changes in the visualized spine. A slight retrolisthesis is present of T12 on L1. Soft tissues:Unremarkable. Upper abdomen:Unremarkable. CT/Chest without Contrast IMPRESSION: 1. Pulmonary findings including small peribronchial patches of pulmonary consolidation in the left upper lobe, subtle multifocal ground-glass opacities and mild peripheral reticular opacities throughout the lungs. Differential considerations include mild pulmonary edema, bronchitis/bronchiolitis with early infectious or inflammatory pneumonitis. The interstitial opacities may be due to mild chronic fibrotic changes or interstitial edema. 2. A couple of small pulmonary nodules are present. Follow-up is recommended in12 months. 3. Chronic vertebral compression fractures at T11 and T12. [facility] CC: Dr. Elio Cedeño MD; Dr. Jacek Anaya MD ~ Shell Grader: Amrit[facility] 12-27-2023 Telephone encounter Note [facility] will send RX to [facility] 12-27-2023 Miscellaneous Notes [facility] will send RX to [facility] Yes, I just did a curbside visit with her when her came in, I put a note in September 24 of this year Received refill request electronically via inEMBI. Pt last seen 12/29/2021, F/u in PRN. Refilled Metoprolol Succ 25mg Daily #90 with 3 refills. [facility] documented [facility] this encounter [facility] 12-27-2023 Telephone encounter Note Yes, I just did a curbside visit with her when her came in, I put a note in September 24 of this year [facility] 12-26-2023 Telephone encounter Note Received refill request electronically via [email or web address]. Pt last seen 12/29/2021, F/u in PRN. Refilled Metoprolol Succ 25mg Daily #90 with 3 refills. [facility] 12-18-2023 Telephone encounter Note Received refill request electronically via inbasket. Pt last seen 12/29/21, F/u in PRN. Atorvastatin can be refill by PCP, will refued [facility] 12-18-2023 Miscellaneous Notes Received refill request electronically via inbasket. Pt last seen 12/29/21, F/u in PRN. Atorvastatin can be refill by PCP, will refued documented in this encounter [facility] 09-27-2023 History of Presen t illness Narrative Faxed PCP for labs Faxed PFT order to [place] [facility] [phone] Saw patient today when I was seeing her . She continues to have difficulties with dyspnea on exertion. It is the same as when we did cardiac testing in 2021 where her echo was essentially normal and her stress had had breast attenuation. Can we get lipids from her PCP I have asked her to monitor home blood pressure She needs pulmonary function testing at [facility] or [place] documented in this encounter [facility] 09-25-2023 History of Presen t illness Narrative Saw patient today when I was seeing her . She continues to have difficulties with dyspnea on exertion. It is the same as when we did cardiac testing in 2021 where her echo was essentially normal and her stress had had breast attenuation. Can we get lipids from her PCP I have asked her to monitor home blood pressure She needs pulmonary function testing at [facility] documented in this encounter [facility] 09-25-2023 Note Saw patient today wh en I was seeing her . She continues to have difficulties with dyspnea on exertion. It is the same as when we did cardiac testing in 2021 where her echo was essentially normal and her stress had had breast attenuation. Can we get lipids from her PCP I have asked her to monitor home blood pressure She needs pulmonary function testing at [facility] or [place] AUTHENTICATED BY GORDON LYN, ON 09/25/2023 16:04:14 [facility] 01-31-2023 Telephone encounter Note Received refill request electronically via inEMBI. Pt last seen 12/29/21, F/u in PRN. Refilled Metoprolol 25mg Daily #90 with 3 refill and Atorvastatin 40mg Daily #90 with 3 refill. Rx sent to [facility]. [facility] 01-31-2023 Miscellaneous Notes Received refill request electronically via inEMBI. Pt last seen 12/29/21, F/u in PRN. Refilled Metoprolol 25mg Daily #90 with 3 refill and Atorvastatin 40mg Daily #90 with 3 refill. Rx sent to [facility]. documented in this encounter [facility] 01-16-2022 Evaluation + Plan note Associated Problem(s): PATEL (dyspnea on exertion) Plans for echo and stress. [facility] 01-16-2022 Miscellaneous Notes Associated Problem(s): PATEL (dyspnea on exertion) Plans for echo and stress. Associated Problem(s): Dyslipidemia Her LDL is 140. I do feel at the age of 76 and a family history of early heart disease, there is a benefit to get that LDL lower with a statin. We talked about the pleomorphic plaque stabilization benefits. She is agreeable and will start at atorvastatin 40 mg daily. documented in this encounter [facility] 01-16-2022 Evaluation + Plan note Associated Problem(s): Dyslipidemia Her LDL is 140. I do feel at the age of 76 and a family history of early heart disease, there is a benefit to get that LDL lower with a statin. We talked about the pleomorphic plaque stabilization benefits. She is agreeable and will start at atorvastatin 40 mg daily. [facility] 12-29-2021 History of Presen t illness Narrative Interventional Cardiology Clinic Consult Heart & Vascular [facility] 12/29/2021 Gordon Lyn MD [address] [facility] [address] Patient: Emilia Sommers Date of : 1945 (76 y.o.) Referring Provider: No ref. provider found PCP: Jose Robb MD Assessment & Plan Dyslipidemia Her LDL is 140. I do feel at the age of 76 and a family history of early heart disease, there is a benefit to get that LDL lower with a statin. We talked about the pleomorphic plaque stabilization benefits. She is agreeable and will start at atorvastatin 40 mg daily. PATEL (dyspnea on exertion) Plans for echo and stress. Follow-up: Return if symptoms worsen or fail to improve. Chief Complaint: Consult (Patient here due to Family HX, with medication bottle. ) Subjective History of Present Illness: Emilia Sommers is a 76 y.o. female who comes in today for cardiac evaluation. She is actually here with her who I have cared for for over 10 years for his known coronary disease. She does have a family history of coronary artery disease with her father dying of cardiac issues in his 50s. Her brother with a leaky heart valve requiring surgery and her mother also requiring valve surgery for a leaky heart valve. Emilia denies complaints of chest pain but she does have issues with shortness of breath with exertion. She did have COVID in February 2019 and she feels her symptoms have been progressive since that time. She did have a negative stress test and echo back in 2018. She denies any lower extremity edema or palpitations. Only significant medical history includes having 3 children. Last LDL I can see was approximately 140. Blood pressure at rest today is excellent at 124/70. Objective Tobacco Use Smoking Status Former Types: Cigarettes Quit date: 1971 Years since quittin.9 Passive exposure: Past Smokeless Tobacco Never HOME Medications: Patient's Medications New Prescriptions ATORVASTATIN (LIPITOR) 40 MG TABLET Take 1 (one) tablet (40 mg total) by mouth daily . Previous Medications LATANOPROST (XALATAN) 0.005 % OPHTHALMIC SOLUTION Administer 1 (one) drop to both eyes nightly . Modified Medications No medications on file Discontinued Medications No medications on file Vital Signs: BP 124/70 (BP Location: Left arm, Patient Position: Sitting, BP Cuff Size: Adult) Pulse 84 Ht 5' 2.5 Wt 69.9 kg (154 lb) SpO2 95% BMI 27.72 kg/m Physical Exam Vitals reviewed. Constitutional: Appearance: Normal appearance. She is well-developed. She is not toxic-appearing. HENT: Head: Normocephalic and atraumatic. Right Ear: Hearing and external ear normal. Left Ear: Hearing and external ear normal. Nose: Nose normal. Eyes: General: Lids are normal. Extraocular Movements: Extraocular movements intact. Conjunctiva/sclera: Conjunctivae normal. Pupils: Pupils are equal, round, and reactive to light. Neck: Vascular: No carotid bruit. Cardiovascular: Rate and Rhythm: Normal rate and regular rhythm. Pulses: Normal pulses. Heart sounds: Normal heart sounds, S1 normal and S2 normal. Comments: No cyanosis, clubbing or edema Pulmonary: Effort: Pulmonary effort is normal. Breath sounds: Normal breath sounds. Musculoskeletal: General: Normal range of motion. Cervical back: Normal range of motion. Skin: General: Skin is warm and dry. Neurological: Mental Status: She is alert and oriented to person, place, and time. Psychiatric: Behavior: Behavior normal. Thought Content: Thought content normal. Judgment: Judgment normal. No results found for: CHOL, LDLCALC, LDLDIRECT, TRIG, HDL Review of Systems Constitutional: Negative for diaphoresis, malaise/fatigue, weight gain and weight loss. HENT: Negative for hearing loss, nosebleeds and tinnitus. Eyes: Positive for blurred vision and visual disturbance. Cardiovascular: Positive for dyspnea on exertion and leg swelling. Negative for chest pain, claudication, cyanosis, irregular heartbeat, near-syncope, orthopnea, palpitations, paroxysmal nocturnal dyspnea and syncope. Respiratory: Positive for snoring. Negative for hemoptysis and shortness of breath. Endocrine: Negative for cold intolerance and heat intolerance. Hematologic/Lymphatic: Bruises/bleeds easily. Skin: Negative for flushing, poor wound healing and rash. Musculoskeletal: Positive for back pain and myalgias. Negative for muscle weakness. Gastrointestinal: Negative for abdominal pain, change in bowel habit, melena, nausea and vomiting. Genitourinary: Negative for decreased libido and hematuria. Neurological: Negative for loss of balance and numbness. Psychiatric/Behavioral: Negative for memory loss. The patient is not nervous/anxious. documented in this encounter [facility] Evaluation note Diagnosis Angina pectoris (HCC)- Primary Other and unspecified angina pectoris Coronary artery disease, unspecified vessel or lesion type, unspecified whether angina present, unspecified whether [place] or transplanted heart SOB (shortness of breath) Shortness of breath [facility] Phone: Evaluation note* Diagnosis Dyslipidemia- Primary Other and unspecified hyperlipidemia PATEL (dyspnea on exertion) Other dyspnea and respiratory abnormality FH: CAD (coronary artery disease) Family history of ischemic heart disease [facility] Diagnosis Onset Date Resolution Status DDD (degenerative disc disease), lumbar acute Scoliosis deformity of spine [facility] Work Phone: Evaluation note* Diagnosis PATEL (dyspnea on exertion)- Primary Other dyspnea and respiratory abnormality [facility] Diagnosis PATEL (dyspnea on exertion)- Primary Other dyspnea and respiratory abnormality [facility]narrative)No reason for referral information availableWMer[facility] Work Phone: Summary Purpose Family History No Family History Records FoundNo Family History Records FoundNo Family History Records FoundNo Family History Records Found Advance Directives No Advanced Directives Records Found Advance Directive Response Recorded Date/ Time Living Will Yes March 23 3:58pm Power of Boiler Tester Yes March 23, 2020 3:58pm Advance Directive Response Recorded Date/ Time Living Will Yes March 23 2:58pm Power of Boiler Tester Yes March 23, 2020 2:58pm Reason for Referral Specialty Diagnoses / Procedures Referred By Bryno t Referred To Contact Cardiology Diagnoses SOB (shortness of breath) Procedures Echocardiogram complete Gordon Lyn MD [address] [facility] [facility] [address] [place] [address] Referral ID Status Reason Start Date Expiration Date V isits Requested Visits Authorized [id number] New Request 09/03/2021 09/03/2022 1 1 Specialty Diagnoses / Procedures Referred By Jeanac t Referred To Contact Radiology Diagnoses Dyslipidemia PATEL (dyspnea on exertion) FH: CAD (coronary artery disease) Procedures NM Myocardial Perfusion Multiple SPECT Gordon Lyn MD [address] [facility] [address] [place] [address] Referral ID Status Reason Start Date Expiration Date V isits Requested Visits Authorized [id number] Pending Review 12/29/2021 12/29/2022 4 4 Specialty Diagnoses / Procedures Referred By Bryon t Referred To Contact Pulmonary Disease Diagnoses PATEL (dyspnea on exertion) Gordon Lyn MD [address] [facility] [address] [place] [address] Referral ID Status Reason Start Date Expiration Date Visits Requested Visits Authorized [id number] Pending Review Specialty Services Required/Pat ient's Best Interest 11/03/2023 11/02/2024 1 1 Chief Complaint and Reason for Visit Chief Complaint WELLNESS EXAMINATION Chief Complaint BACK PAIN BACK PAIN / RX HERE Chief Complaint BACK PAIN BACK PAIN / RX HERE LUMBER SPINE Room 2 Reason for Visit DDD (degenerative di sc disease), lumbar Scoliosis deformity of spine Chief Complaint LUMBER SPINE Room 2 SCREENING Reason for Visit DDD (degenerative di sc disease), lumbar Scoliosis deformity of spine Chief Complaint Admit Date ASTHMA May 09, 2024 11: 35am Additional Source Comments INFORMATION SOURCE (unrecogn ized section and content) DATE CREATED AUTHOR 06/21/2020 [facility] DATE CREATED AUTHOR AUTHOR'S ORGANIZ ATION 02/24/2022 [facility] DATE CREATED AUTHOR AUTHOR'S ORGANIZ ATION 12/11/2023 [facility] DATE CREATED AUTHOR AUTHOR'S ORGANIZ ATION 05/15/2024 [facility] Teams (unrecognized sec tion and content) Human Resource Statistician Relationship Specialty Start Date End Date Jose Robb MD [address] [place] [address] PCP - General Emergency Medicine 09/03/21 Human Resource Statistician Relationship Specialty Start Date End Date Jose Robb MD [address] [place] [address] PCP - General Emergency Medicine 09/03/21 Team Status: Active Member Role Status Dates Dr. Elio Cedeño MD Family Provider Active Dr. Elio Cedeño MD Primary Care Provider Active Team Status: Active Member Role Status Dates Dr. Elio Cedeño MD Primary Care Provi alicia, Attending Provider, Referring Provider Active Team Status: Inactive Member Role Status Dates Dr. Elio Cedeño MD Primary Care Provi alicia, Attending Provider, Referring Provider Active Team Status: Inactive Member Role Status Dates Dr. Elio Cedeño MD Primary Care Provider, Referring Provider Active Dr. Nitish Maher DO Attending Provider Active Team Status: Inactive Member Role Status Dates Dr. Elio Cedeño MD Primary Care Provider Active Dr. Doug Solomon MD Attending Provider Active Team Status: Inactive Member Role Status Dates Dr. Elio Cedeño MD Primary Care Provider, Attending Provider Active Human Resource Statistician Relationship Specialty Start Date End Date Jose Robb MD [address] [place] [address] PCP - General Emergency Medicine 09/03/21 Human Resource Statistician Relationship Specialty Start Date End Date Jose Robb MD [address] [place] [address] PCP - General Emergency Medicine 09/03/21 Human Resource Statistician Relationship Specialty Start Date End Date Jose Robb MD [address] [place] [address] PCP - General Emergency Medicine 09/03/21 Human Resource Statistician Relationship Specialty Start Date End Date Jose Robb MD [address] [place] [address] PCP - General Emergency Medicine 09/03/21 Human Resource Statistician Relationship Specialty Start Date End Date Jose Robb MD [address] [place] [address] PCP - General Emergency Medicine 09/03/21 Human Resource Statistician Relationship Specialty Start Date End Date Jose Robb MD [address] [place] [address] PCP - General Emergency Medicine 09/03/21 Human Resource Statistician Relationship Specialty Start Date End Date Jose Robb MD [address] [place] [address] PCP - General Emergency Medicine 09/03/21 Team Status: Active Member Role Status Dates Dr. Elio Cedeño MD Primary Care Provider Active Team Status: Inactive Member Role Status Dates Dr. Elio Cedeño MD Primary Care Provider Active Start: May 02, 2024 End: May 02, 2024 Dr. Jacek Anaya MD Attending Provider Active Start: May 02, 2024 End: May 02, 2024 Dr. Jacek Anaya MD Referring Provider Active Start: May 02, 2024 End: May 02, 2024 Team Status: Inactive Member Role Status Dates Dr. Elio Cedeño MD Primary Care Provider Active Start: May 09, 2024 End: May 09, 2024 Dr. Jacek Anaya MD Attending Provider Active Start: May 09, 2024 End: May 09, 2024 Dr. Jacek Anaya MD Referring Provider Active Start: May 09, 2024 End: May 09, 2024 Goals (unrecognized section and content) Goals may be documented in a n alternate sectionGoals may be documented in an alternate sectionGoals may be documented in an alternate sectionGoals may be documented in an alternate sectionGoals may be documented in an alternate sectionGoals may be documented in an alternate sectionGoals may be documented in an alternate sectionGoals may be documented in an alternate section Reason for Visit (unrecogniz ed section and content) Reason Comments Consult Patient here due to Family HX, with medication bottle. Reason Comments Medication Refill Reason Comments Medication Refill Atorvastatin Reason Comments Medication Refill Metoprolol Succ FOR RECORDS PERTAINING TO PATIENTS WHO ARE OR HAVE BEEN ENROLLED IN A CHEMICAL DEPENDENCY/SUBSTANCEABUSE PROGRAM, SOME INFORMATION MAY BE OMITTED. This clinical summary was aggregated from multiple sources. Caution should be exercised in using it in the provision of clinical care. This summary normalizes information from multiple sources, and as a consequence, information in this document may materially change the coding, format and clinical context of patient data. In addition, data may be omitted in some cases. CLINICAL DECISIONS SHOULD BE BASED ON THE PRIMARY CLINICAL RECORDS. [employer] provides no warranty or guarantee of the accuracy or completeness of information in this document.
[2024-09-12 05:07] LABS: Immunoglobulin A 311 mg/dL (64-422); Immunoglobulin G 1198 mg/dL (586-1602); Immunoglobulin M 100 mg/dL (26-217)
== END | disposition home or self-care (01) ==
LOC: LAB 12:25
PROVIDERS: PCP Family Medicine; Referring Provider Internal Medicine Pulmonary Disease; Visit Provider Internal Medicine Pulmonary Disease
DX: J45.40 Moderate persistent asthma, uncomplicated (principal); R91.1 Solitary pulmonary nodule
CPT/HCPCS: 36415; 82784; 82785

== ENCOUNTER → 2024-11-08 | Outpatient (CLI) | payer MEDICARE, SELFPAY ==
--- OUTSIDE RECORDS SUMMARY | 2024-11-08 12:31 | XMS RPT_ITS | CCD ---
Author Organization [facility] Care Team Providers Care Historic Sites Registrar Name Role Phone Jose Robb MD Primary Care Provider JOSE ROBB Primary Care Unavaila ble LYN, GORDON TANYA Attending Unavailable LYN, GORDON TANYA Referring Unavailable LYN, GORDON TANYA Attending Unavailable TOREYJOSE HARDY Primary Care Unavaila ble LYN, GORDON TANYA Referring Unavailable LYN, GORDON TANYA Attending Unavailable OJSE ROBB Primary Care Unavaila ble LYN, GORDON TANYA Referring Unavailable TOREYJOSE HARDY Primary Care Unavaila ble LYN, GORDON TANYA Attending Unavailable LYN, GORDON TANYA Referring Unavailable LYN, GORDON TANYA Attending Unavailable TOREYJOSE HARDY Primary Care Unavaila ble LYN, GORDON TANYA Referring Unavailable Dr. Elio Cedeño Primary Care Provider Dr. Elio Cedeño Referring Provider Dr. Nitish Maher Attending Provider Dr. Doug Solomon Attending Provider Jose Robb MD Primary Care Provider JOSE ROBB Primary Care Unavaila ble LYNGORDON Attending Unavailable JOSE ROBB Primary Care Unavaila ble KIP RAMIREZ Attending Unavailable Dr. Elio Cedeño MD Primary Care Provider Dr. Jacek Anaya MD, V Attending Provider Dr. Jacek Anaya MD, V Referring Provider Dr. Elio Cedeño MD Primary Care Provider Dr. Jacek Anaya MD, V Attending Provider [phone] Dr. Jacek Anaya MD, V Referring Provider [phone] Elio Cedeño Primary Care Unavailable Jaclyn, Jacek Jung Attending Unavailable Sibalphonso, Jacek Jung Referring Unavailable Sibalphonso, Jacek Jung Attending Unavailable Elio Cedeoñ Primary Care Unavailable Jaclyn, Jacek Jung Referring Unavailable Elio Cedeño Primary Care Unavailable Jaclyn, Jacek Jung Attending Unavailable Elio Cedeño Primary Care Unavailable JOSE SLATER Attending Unavailable JOSE SLATER Referring Unavailable Elio Cedeño Primary Care Unavailable Sibalphonso, Jacek Jung Attending Unavailable Sibalphonso, Jacek Jung Referring Unavailable Jose Luis Pettit Attending Unavailable Gala, Elio Primary Care Unavailable Sibalphonso, Jacek Jung Referring Unavailable Jaclyn, Jacek Jung Attending Unavailable Allergies Allergy Classification Reported Allergen(s) Allergy Type Date of Onset Reaction(s) Facility (20 sources) Sulfonamides (Antibiotic); Translations: [SULFA (SULFONAMIDE ANTIBIOTICS)] Propensity to adverse reactions 4 Shortness Of Breath [facility] Medications Current Medications Medication Drug Class(es) Dates Sig (Normalized) Sig (Original) atorvastatin 40 mg oral tablet (17 sources) HMG-CoA Reductase Inhibitor Start: 08-11-2022 Atorvastatin Active MG PO August 11, 2022 12:00am Start: 12-29-2021 End: 01-31-2024 Atorvastatin 40 mg tablet Ac tive mg PO August 11, 2022 12:00am latanoprost 0.05 mg/ml ophthalmic solution (15 sources) Prostaglandin Analog Start: 08-11-[address] 0.005 % drops Active NMA OPHTHALMIC August 11, 2022 12:00am Start: 12-17-2021 take 1 drop(s) into the eye(s) once daily latanoprost (XALATAN) 0.005 % ophthalmic solution Administer 1 (one) drop to both eyes nightly . 12/17/2021 Active meloxicam 15 mg oral tablet (6 sources) Nonsteroidal Anti-inflammatory Drug Start: 08-11-2022 Meloxicam 15 mg tablet Active mg PO August 11, 2022 12:00am Start: 08-11-2022 Meloxicam Acti ve MG PO August 11, 2022 12:00am 24 hr metoprolol succinate 25 mg extended release oral tablet (16 sources) beta-Adrenergic Erendira Start: 08-11-2022 take 1 [...] mg / zeaxanthin 5 mg oral capsule (9 sources) Start: 03-23-2020 End: 08-11-2022 take 1 capsule by mouth once daily Lutein-Zeaxanthin 1 EACH capsule Discontinued 2 NMA PO DAILY March 23, 2020 1:00am August 11, 2022 2:23pm eye health Start: 03-23-2020 End: 08-11-2022 take 2 capsules [...] [Hyperlipidemia, unspecified] Onset: 12-29-2021 Chronic Essential hypertension (6 sources) Hypertensive disorder; Translations: [Essential (primary) hypertension] 08-11-2022 Chronic Other acquired deformities (6 sources) Scoliosis deformity of spine; Translations: [Scoliosis, [...] Spondylosis; intervertebral disc disorders; other back problems (9 sources) Degeneration of lumbar intervertebral disc; Translations: [Other intervertebral disc degeneration, lumbar region] 08-11-2022 Chronic Spondylosis; intervertebral disc disorders; other back problems (6 sources) Low back pain; Translations: [Low back pain] 08-11-2022 Episodic Past or Other Problems Problem Classification Problem Date Documented Da te Episodic/Chronic Other lower respiratory disease (12 sources) Dyspnea on exertion; Translations: [Other forms of dyspnea] Onset: 12-29-2021 Episodic Other lower respiratory disease (3 sources) Other forms of dyspnea; Translations: [Other forms of dyspnea] Onset: 12-29-2021 Episodic Residual codes; unclassified (10 sources) Family history of coronary arteriosclerosis; Translations: [Family history of ischemic heart disease and other diseases of the circulatory system] Onset: 12-29-2021 Episodic Unclassified (1 source) Labs Only Onset: 11-15-2023 Results Test Name Value Interpretation Reference Range Facility Immunoglobulins G/A/M/Tommy IMMUNOGLOB A QN 311 mg/dL Normal 64-422 [facility] Comment on above: Order Comment: N Performed By: #### L 3200.1100 #### [facility] [address] [place], [address] IMMUNOGLOB E QN 849 IU/mL High 6-495 [facility] Comment on above: Order Comment: N Result Comment: Perf ormed at: [facility] [id number] Health Education Aide: Magdiel Styles PhD, Phone: [phone] Performed at: [facility] [id number] Health Education Aide: Ewelina Lipscomb MD, Phone: [phone] Performed By: #### L 3200.1100 #### [facility] [address] [place], [address] IMMUNOGLOB G QN 1198 mg/dL Normal 586-1602 [facility] Comment on above: Order Comment: N Performed By: #### L 3200.1100 #### [facility] [address] [place], [address] IMMUNOGLOB M QN 100 mg/dL Normal 26-217 [facility] Comment on above: Order Comment: N Performed By: #### L 3200.1100 #### [facility] [address] [place], [address] IgEOrdered By: Jacek rueda on 09-09-2024 IgE 849 IU/mL High 6-495 [facility] Comment on above: Performed at: [address] [id number] Director: Magdiel Styles PhD, Phone: [phone] at: [facility] [address] [id number] Director: Ewelina Lipscomb MD, Phone: [phone] Serum or plasma IgA measurem ent (mass/volume)Ordered By: Jacek Anaya on 09-09-2024 IgA [Mass/Vol] 311 mg/dL 64-422 [facility] Serum or plasma IgG measurem ent (mass/volume)Ordered By: Jacek Anaya on 09-09-2024 IgG [Mass/Vol] 1198 mg/dL 586-1602 [facility] Chest without Contraston Chest without Contrast [facility] Imaging Services [address] [place], [place] [address] Chest without Contrast MR#: [id number] Acct: [id number] Name: EMILIA SOMMERS Rep #: [id number] : 1945 F 78 From: Osiris Sam MD PCP: Dr. Elio Cedeño MD Status: REG CLI Study: Chest without Contrast Date of Exam: 05/09/24 Exam# [id number] Ordering Dr: Jacek Anaya MD PROCEDURE: CHEST [...] or pneumothorax. Cardiovascular:The heart is normal in size.Belg-me-hngzdkj e coronary artery calcifications are present.There are mild scattered atherosclerotic calcifications in the thoracic aorta. The pulmonary arteries are unremarkable. Pericardium:No effusion. Mediastinum:Unremark able. Lymph nodes:No lymph node enlargement identified on this noncontrast CT. Bones:Chronic vertebral compression fractures are present at the superior endplate of T11 and T12. There are moderate multilevel degenerative changes in the visualized spine. A slight retrolisthesis is present of T12 on L1. Soft tissues:Unremarkable . Upper abdomen:Unremarkable . CT/Chest without Contrast IMPRESSION: 1. Pulmonary findings including small peribronchial patches of pulmonary consolidation in the left upper lobe, subtle multifocal ground-glass opacities and mild peripheral reticular opacities throughout the lungs. Differential considerations include mild pulmonary edema, bronchitis/bronchiol itis with early infectious or inflammatory pneumonitis. The interstitial opacities may be due to mild chronic fibrotic changes or interstitial edema. 2. A couple of small pulmonary nodules are present. Follow-up is recommended in 12 months. 3. Chronic vertebral compression fractures at T11 and T12. Reading Location: [place] CC: Dr. Elio Cedeño MD; Dr. Jacek Anaya MD Mill Helper: Signed Normal [facility] CBC-Complete Blood Cnt No Rajani cannon 05-02-2024 CBC panel Auto (Bld) Normal [facility] Comment on above: Performed By: #### L 100.0623 #### [facility] [address] [place], [address] Erythrocyte distribution wid th ratioOrdered By: Jacek Anaya on 05-02-2024 Erythrocyte distribution width (RBC) [Ratio] 18.6 % High 11.6-14.6 [facility] Erythrocyte distribution wid th standard deviationOrdered By: Jacek Anaya on 05-02-2024 Erythrocyte distribution width (RBC) [Entitic vol] 68.9 fL High 35.1-43.9 [facility] Hematocrit Auto (Bld) [Volum e fraction]Ordered By: Jacek Anaya on 05-02-2024 Hematocrit (Bld) [Volume fraction] 29.1 % Low 37-47 [facility] Hemoglobin measurementOrdere d By: Jacek Anaya on 05-02-2024 Hemoglobin (Bld) [Mass/Vol] 9.2 g/dL Low 12.0-15.0 [facility] MCV (mean corpuscular volume ) determinationOrdered By: Jacek Anaya on 05-02-2024 MCV (RBC) [Entitic vol] 102.5 fL High 81-99 [facility] Mean corpuscular hemoglobin (MCH) determinationOrdered By: Jacek Anaya on 05-02-2024 MCH (RBC) [Entitic mass] 32.4 pg High 27.0-32.0 [facility] Mean corpuscular hemoglobin concentration (MCHC) determinationOrdered By: Jacek Anaya on 05-02-2024 MCHC (RBC) [Mass/Vol] 31.6 g/dL Low 32-36 [facility] Mean platelet volume determi nationOrdered By: Jacek Anaya on 05-02-2024 Platelet mean volume (Bld) [Entitic vol] 12.3 fL High 6.2-12.0 [facility] Platelet countOrdered By: Melanie Anaya on 05-02-2024 Platelets (Bld) [#/Vol] 270 10*3/uL 150-450 [facility] RBC Auto (Bld) [#/Vol]Ordere d By: Jacek Anaya on 05-02-2024 RBC (Bld) [#/Vol] 2.84 10*6/uL Low 4.2-5.4 [facility] White blood cell (WBC) count Ordered By: Jacek Anaya on 05-02-2024 WBC (Bld) [#/Vol] 7.4 10*3/uL 4.4-11.0 [facility] Chest PA and Lateralon 12-27 Chest PA and Lateral [facility] Imaging Services [address] [place], [place] [address] Chest PA and Lateral MR#: [id number] Acct: [id number] Name: EMILIA SOMMERS Rep #: [id number] : 1945 F 78 From: Stu Bustillo DO PCP: Dr. Elio Cedeño MD Status: REG CLI Study: Chest PA and Lateral Date of Exam: 12/28/23 Exam# [id number] Ordering Dr: Jacek Anaya MD [id number] INDICATION: MOD PERS ASTHMA/SOB/COUGH EXAMINATION/TECHNIQU E: X-RAY - XR Chest 2 Views COMPARISON: March 23, 2020 ____ FINDINGS: LINES/DEVICES: None. LUNGS: No consolidation, edema or effusion. No pneumothorax. MEDIASTINUM AND CARDIOVASCULAR STRUCTURES: Cardiac silhouette not enlarged. Central airways and mediastinal contour are unremarkable. BONES AND SOFT TISSUES: Degenerative vertebral changes and scoliosis. RAD/Chest PA and Lateral IMPRESSION: No radiographic evidence of acute cardiopulmonary disease. Electronically Signed: Stu Bustillo DO at 9:53 EST , CC: Dr. Elio Cedeño MD; Dr. Jacek Anaya MD Mill Helper: Signed Normal [facility] Basophil percentageOrdered B y: Elio Cedeño on 09-08-2022 Chloride [Moles/Vol] 107 mmol/L 98-107 [facility] Cholesterol [Mass/Vol] 129 mg/dL <200 [facility] Comment on above: <200 mg/dL Desirable 200-240 mg/dL Borderline >240 mg/dL High Risk Glucose [Mass/Vol] 108 mg/dL 74-106 [facility] Comment on above: Fasting Glucose resu lt from 100 to 125 mg/dL suggests IMPAIRED HOMEOSTASIS per A.D.A. criteria. Potassium [Moles/Vol] 5.0 mmol/L 3.5-5.1 [facility] Sodium [Moles/Vol] 137 mmol/L 136-145 [facility] Triglyceride [Mass/Vol] 71 mg/dL <199 [facility] Comment on above: The drugs N-Acetylcy steine and Metamizole may falsely depress this assay.Serum Triglycerides Reference Interval Normal <150 mg/dL Borderline high 150 - 199 mg/dL High 200 - 499 mg/dL Very High > or = 500 mg/dL Laboratory - Chemistry and C hemistry - challengeOrdered By: Elio Cedeño on 09-08-2022 CO2 [Moles/Vol] 26.0 mmol/L 21.0-32.0 [facility] Urea nitrogen/Creatinine [Mass ratio] 20.7 mg/mg 10-20 [facility] No Panel InformationOrdered By: Elio Cedeño on 09-08-2022 Estimated GFR (MDRD) Amer 43 mL/min >60 [facility] Comment on above: GFR Calc Estimated GFR (MDRD) Non-Af Amer 36 mL/min >60 [facility] Comment on above: Non- GFR Calc Vitamin D 25-Hydroxy 29.0 ng/mL [facility] Comment on above: Vitamin D 25(OH) Sta tus Range Deficiency <20 ng/mL (50nmol/L) Insufficiency 20 - 30 ng/mL (50 - 75 nmol/L) Sufficiency 30 - 100 ng/mL (75 - 250 nmol/L) Toxicity >100 ng/mL (>250 nmol/L) Serum or plasma calcium farhad urement (mass/volume)Ordered By: Elio Cedeño on 09-08-2022 Calcium [Mass/Vol] 9.0 mg/dL 8.5-10.1 [facility] Serum or plasma cholesterol in HDL measurement (mass/volume)Ordered By: Elio Cedeño on 09-08-2022 Cholesterol in HDL [Mass/Vol] 57 mg/dL >40 [facility] Comment on above: The drugs N-Acetylcy steine and Metamizole may falsely depress this assay. Reference Range HDL <40 mg/dL Low HDL Cholesterol HDL >or= 60 mg/dL High HDL Cholesterol Serum or plasma cholesterol in VLDL measurement (mass/volume)Ordered By: Elio Cedeño on 09-08-2022 Cholesterol in VLDL [Mass/Vol] 14 mg/dL 5-40 [facility] Serum or plasma creatinine m easurement (mass/volume)Ordered By: Elio Cedeño on 09-08-2022 Creatinine [Mass/Vol] 1.50 mg/dL 0.55-1.02 [facility] Comment on above: The validity of the calculated GFR & GFRAA in patients over 70 years has not been determined. Clinical correlation is essential. Serum or plasma low density lipoprotein (LDL) cholesterol measurement (mass/volume)Ordered By: Elio Cedeño on 09-08-2022 Cholesterol in LDL [Mass/Vol] 58 mg/dL 0-130 [facility] Serum or plasma urea nitroge n measurement (mass/volume)Ordered By: Elio Cedeño on 09-08-2022 Urea nitrogen [Mass/Vol] 31 mg/dL 7-18 [facility] Serum or plasma uric acid me asurement (mass/volume)Ordered By: Elio Cedeño on 09-08-2022 Urate [Mass/Vol] 6.9 mg/dL 2.6-6.0 [facility] Comment on above: The drugs N-Acetylcy steine and Metamizole may falsely depress this assay. Thin prep Papanicolaou smear with manual screeningOrdered By: Elio Cedeño on 09-08-2022 Thin prep Papanicolaou smear with manual screening 4 5-15 [facility] Basophil percentageon 2021 Chloride [Moles/Vol] 108 mmol/L 98-107 [facility] Work Phone: Cholesterol [Mass/Vol] 213 mg/dL <200 [facility] Work Phone: Comment on above: <200 mg/dL Desirable 200-240 mg/dL Borderline >240 mg/dL High Risk Glucose [Mass/Vol] 101 mg/dL 74-106 [facility] Work Phone: Comment on above: Fasting Glucose resu lt from 100 to 125 mg/dL suggests IMPAIRED HOMEOSTASIS per A.D.A. criteria. Potassium [Moles/Vol] 4.2 mmol/L 3.5-5.1 [facility] Work Phone: Sodium [Moles/Vol] 141 mmol/L 136-145 [facility] Work Phone: Triglyceride [Mass/Vol] 102 mg/dL <199 [facility] Work Phone: Comment on above: The drugs N-Acetylcy steine and Metamizole may falsely depress this assay.Serum Triglycerides Reference Interval Normal <150 mg/dL Borderline high 150 - 199 mg/dL High 200 - 499 mg/dL Very High > or = 500 mg/dL Laboratory - Chemistry and C hemistry - challengeon 09-06-2021 CO2 [Moles/Vol] 26.0 mmol/L 21.0-32.0 [facility] Work Phone: Urea nitrogen/Creatinine [Mass ratio] 15.4 mg/mg 10-20 [facility] Work Phone: No Panel Informationon 09-06 Estimated GFR (MDRD) Amer 77 mL/min >60 [facility] Work Phone: Comment on above: GFR Calc Estimated GFR (MDRD) Non-Af Amer 64 mL/min >60 [facility] Work Phone: Comment on above: Non- GFR Calc Vitamin D 25-Hydroxy 24.6 ng/mL [facility] Work Phone: Comment on above: Vitamin D 25(OH) Sta tus Range Deficiency <20 ng/mL (50nmol/L) Insufficiency 20 - 30 ng/mL (50 - 75 nmol/L) Sufficiency 30 - 100 ng/mL (75 - 250 nmol/L) Toxicity >100 ng/mL (>250 nmol/L) Serum or plasma calcium farhad urement (mass/volume)on 09-06-2021 Calcium [Mass/Vol] 9.0 mg/dL 8.5-10.1 [facility] Work Phone: Serum or plasma cholesterol in HDL measurement (mass/volume)on 09-06-2021 Cholesterol in HDL [Mass/Vol] 53 mg/dL >40 [facility] Work Phone: Comment on above: The drugs N-Acetylcy steine and Metamizole may falsely depress this assay. Reference Range HDL <40 mg/dL Low HDL Cholesterol HDL >or= 60 mg/dL High HDL Cholesterol Serum or plasma cholesterol in VLDL measurement (mass/volume)on 09-06-2021 Cholesterol in VLDL [Mass/Vol] 20 mg/dL 5-40 [facility] Work Phone: Serum or plasma creatinine m easurement (mass/volume)on 09-06-2021 Creatinine [Mass/Vol] 0.91 mg/dL 0.55-1.02 [facility] Work Phone: Comment on above: The validity of the calculated GFR & GFRAA in patients over 70 years has not been determined. Clinical correlation is essential. Serum or plasma low density lipoprotein (LDL) cholesterol measurement (mass/volume)on 09-06-2021 Cholesterol in LDL [Mass/Vol] 140 mg/dL 0-130 [facility] Work Phone: Serum or plasma urea nitroge n measurement (mass/volume)on 09-06-2021 Urea nitrogen [Mass/Vol] 14 mg/dL 7-18 [facility] Work Phone: Thin prep Papanicolaou smear with manual screeningon 09-06-2021 Thin prep Papanicolaou smear with manual screening 7 5-15 [facility] Work Phone: CORONAVIRUS 2019 BY PCRon SARS-CoV-2 (COVID-19) RNA BRIDGET+probe Ql (Unsp spec) Detected Abnormal Not Detected [facility] Comment on above: Result Comment: . This [...] patient management decisions. Fact sheet for providers: https://www.fda.gov/media/362242/download Fact sheet for patients: https://www.fda.gov/media/779904/download This test has received FDA Emergency Use Authorization (EUA) and has been verified by [facility] ([facility]). This test is only authorized for the duration of time that circumstances exist to justify the authorization of the emergency use of in vitro diagnostic tests for the detection of SARS-CoV-2 virus and/or diagnosis of COVID-19 infection under section 564(b)(1) of the Act, 21 U.S.C. 360bbb-3(b)(1), unless the authorization is terminated or revoked sooner. [facility] is certified under CLIA-88 as qualified to perform high complexity testing. Testing is performed in the [facility] laboratories located at [address] [place] [address]. Performed By: #### C OV19 #### [address] [place] [address] Covid 19 Resultson 1 SARS-CoV-2 (COVID-19) RNA [...] You may also be contacted by the [facility] to see if any of your close [...] or Naproxen (Aleve) can also be used. Houe-hco-oktbayl cough and cold medicines can be used according to the instructions on the package. Some irda-dxs-nbrrpvy medicines also contain acetaminophen. Make sure you [...] water are not available, use alcohol-based hand pensionholder information clerk. Avoid touching your eyes, nose, and mouth [...] like ibuprofen (Motrin) (more content not included)... [facility] CORONAVIRUS 2019 BY PCRon DATE OF SYMPTOM ONSET [YYYYMMDD]? 20200317 [facility] Comment on above: Performed By: #### C OV19 #### [facility] [address] [place] [address] Lab Specimen Source Nasal, Nasopharyngeal [facility] Comment on above: Performed By: #### C OV19 #### [facility] [address] [place] [address] Provider Note - ED v2on Provider Note - ED v2 Provider Note - ED v2: Chart Review HISTORY OF PRESENTING ILLNESS EMILAI is a 74 year old Female and was seen by me at 18-Mar-2020 16:45. Triage Information: Most recent Vital Sign Value Date PAST MEDICAL HISTORY ATTESTATION: I have reviewed and confirmed nurse's/medic's notes for patient's medications, allergies, and medical, surgical, family and social history ALLERGIES/INTOLERANC ES: Allergy Allergen: sulfa drugs Type: Drug Category Reaction: Throat Swelling HEALTH HISTORY: No documented data. OUTPATIENT MEDICATIONS: Home Medications Review Status for Reconciliation: Complete Med Status: No Current Medications SIGNIFICANT EVENTS: No documented data. RESULTS/VITAL SIGNS VITAL SIGNS: T PRBP SpO2O2(LPM) %FiO2 Method 18-Mar-2020 17:06:[id number] /83 95 MEDICAL DECISION MAKING/ED COURSE MDM/ED COURSE: This note was generated with voice recognition software and may contain errors including spelling, grammar, syntax, and misrecognization of what was dictated Chief Complaint COVID symptoms History of Present Illness Patient presents with COVID symptoms for approximately 5 days. Symptoms include fever, headache, cough. Patient denies use of any sezh-qej-edizayw medications at home prior to arrival for [...] normal strength, no tenderness, no swelling. Integumentary: [place], warm, dry, and Intact. Neurologic: Alert, Oriented, [...] and answered. Patient Instructions: COVID-19 CLINICAL IMPRESSION Diagnosis/Annotation : ED Dx Name:Acute upper respiratory infection Code:J06.9 Disposition: discharged Type: home ATTESTATION CRITICAL CARE TIME Is this a critically ill patient: no Electronic Signatures for Addendum Section: Prashant Terry (MANAGEMENT ASSOCIATE-[facility]) (Signed Addendum 19-Mar-2020 08:25) Patient was notified of her positive coronavirus test result on 03/19/2020 at approximately 8:25 AM Electronic Signatures: Prashant Terry (MANAGEMENT ASSOCIATE-CNA CAREGIVER) (Signed 19-Mar-2020 08:24) Authored: HPI, PMH, PE, Results/Vital Signs, MDM/ED Course, Clinical Impression, Attestation, Chart Review, Scores Last Updated: 19-Mar-2020 08:25 by Prashant Terry (MANAGEMENT ASSOCIATE-CNA CAREGIVER) [facility] Vital Signs Date Time Vital Sign Value Performing Clinician Mickyi yelitza 08-11-2022 14:22-0400 Body height 160.[address] Elio Cedeño Work Phone: [facility] 08-11-2022 14:22-0400 Body mass index (BMI) [Ratio] 27.4 kg/m2 Dr. Elio Cedeño Work Phone: [facility] 08-11-2022 14:22-0400 Body weight 70.[address] Elio Cedeño Work Phone: [facility] 12-29-2021 12:38-0500 Diastolic blood pressure 70 mm[Hg] Gordon Lyn MD Work Phone: [facility] 12-29-2021 12:38-0500 Systolic blood pressure 124 mm[Hg] Gordon Lyn MD Work Phone: [facility] 12-29-2021 12:31-0500 Body height 158.8 cm Gordon Lyn MD Work Phone: [facility] 12-29-2021 12:31-0500 Body mass index (BMI) [Ratio] 27.72 kg/m2 Gordon Lyn MD Work Phone: [facility] 12-29-2021 12:31-0500 Body weight 69.85 kg Gordon Lyn MD Work Phone: [facility] 12-29-2021 12:31-0500 Heart rate 84 /min Gordon Lyn MD Work Phone: [facility] 12-29-2021 12:31-0500 SaO2% (BldA) [Mass fraction] 95 % Gordon Lyn MD Work Phone: [facility] Encounters Encounter Date Encounter Type Care Provider Facility Start: 09-09-2024 End: 09-09-[address] Elio Cedeño MD Work Phone: -Laboratory Start: 09-09-2024 End: 09-09-[address] Jacek Anaya MD -Laboratory Work Phone: Start: 09-09-2024 End: 09-09-2024 ambulatory Elio Cedeño Facility:[facility] Start: 05-09-2024 End: 05-09-[address] Elio Cedeño MD Work Phone: [facility] Work Phone: Start: 05-09-2024 End: 05-09-[address] [facility]acek [facility] Start: 05-09-2024 End: 05-09-2024 ambulatory Jacek Anaya Facility:[facility] Start: 05-02-2024 End: 05-02-[address] Elio Cedeño MD Work Phone: [facility] Work Phone: Start: 05-02-2024 End: 05-02-[address] [facility] Start: 05-02-2024 End: 05-02-2024 [facility] Start: 12-28-2023 End: 12-28-2023 ambulatory [facility] Facility:[facility] Start: 12-26-2023 End: 12-27-2023 Refill Gordon Lyn MD Work Phone: [facility] Comment on above: Medication Refill (M etoprolol Succ ) Start: 12-17-2023 End: 12-18-2023 Refill Gordon Lyn MD Work Phone: [facility] Comment on above: Medication Refill (A torvastatin ) Start: 11-15-2023 ambulatory JOSE KIRAN [facility] Ambulatory Start: 11-10-2023 ambulatory JOSE KIRAN [facility] Ambulatory Start: 11-03-2023 End: 11-03-2023 Orders Only Josselin Guaman RN [facility] Card[facility] Comment on above: PATEL (dyspnea on exer tion) (Primary Dx) Start: 10-25-2023 End: 10-25-2023 ambulatory Elio Cedeño Facility:[facility] Start: 09-27-2023 End: 09-27-2023 Orders Only Josselin Guaman RN [facility] Comment on above: PATEL (dyspnea on exer tion) (Primary Dx) Start: 09-25-2023 End: 09-25-2023 Documentation procedure Gordon Lyn MD Work Phone: [facility] Start: 01-31-2023 Refill Gordon gates MD Work Phone: [facility] Comment on above: Medication Refill Start: 11-29-2022 End: 11-29-[address] Elio Cedeño Work Phone: [facility] Work Phone: Start: 11-29-2022 End: 11-29-[address] Elio Cedeño Work Phone: [facility]-Outpatient Breast Imaging Work Phone: Start: 09-08-2022 End: 09-08-[address] Elio Cedeño Work Phone: [facility] Work Phone: Start: 09-08-2022 End: 09-08-[address] Elio Cedeño Work Phone: [facility] [place] Work Phone: Start: 08-11-2022 End: 08-11-[address] Elio Cedeño Work Phone: [facility] Work Phone: Start: 08-05-2022 End: 08-05-[address] Elio Cedeño Work Phone: [facility] Work Phone: Start: 08-05-2022 End: 08-05-[address] Elio Cedeño Work Phone: [facility]-Physical Therapy Work Phone: Start: 08-05-2022 Registered Recurring [facility] Therapy Start: 08-04-2022 End: 08-04-2022 ambulatory [facility] Work Phone: Start: 08-04-2022 End: 08-04-2022 Patient encounter procedure [facility] - [facility] Start: 01-25-2022 End: 01-26-2022 ambulatory GORDON LYN [facility] Start: 01-10-2022 End: 01-10-2022 ambulatory [facility] Work Phone: Start: 01-10-2022 End: 01-10-2022 Patient encounter procedure [facility] [place] Start: 12-29-2021 End: 12-29-2021 Office outpatient new 30 minutes Gordon Lyn MD Work Phone: [facility] Comment on above: Dyslipidemia (Primar y Dx); PATEL (dyspnea on exertion); FH: CAD (coronary artery disease) Start: 09-16-2021 End: 09-16-2021 Patient encounter procedure [facility]Outpatient Bone Densitometry Start: 09-06-2021 End: 09-06-2021 Patient encounter procedure [facility] Start: 09-03-2021 Orders Only Ann Nance RN [facility] Comment on above: Angina pectoris (HCC ) (Primary Dx); Coronary artery disease, unspecified vessel or lesion type, unspecified whether angina present, unspecified whether [place] or transplanted heart; SOB (shortness of breath) Procedures Date Procedure Procedure Detail Performing Clinician Start: 09-09-[address] Elio Cedeño MD Work Phone: Start: 05-09-2024 CT of chest without contrast [...] Start: 06-09-2025 Tetanus vaccination Tetanus: Every 10yrs [facility] Start: 10-15-2023 COVID-19 Vaccine ( season) COVID-19 Vaccine ( season) [facility] Start: 10-15-2023 COVID-19 Vaccine ( season) COVID-19 Vaccine ( season) [facility] Start: 10-15-2023 Influenza vaccination Influenza Vaccine (#1) [facility] Start: 10-14-2022 COVID-19 Vaccine ( season) COVID-19 Vaccine ( season) [facility] Start: 10-14-2022 Influenza vaccination Sequential Influenza Vaccine (#1) [facility] Start: 09-16-2022 Screening for malignant neoplasm of breast Mammogram [facility] Start: 01-25-2022 End: 01-25-2022 Patient encounter procedure 01/25/2022 Appointment Cardiology Gordon Lyn MD [address] [place] [address] [facility] Start: 01-25-2022 End: 01-25-2022 Patient encounter procedure 01/25/2022 Appointment Cardiology Gordon Lyn MD [address] [facility] [address] [place] [address] [facility] Start: 12-29-2021 End: 12-29-2021 Patient encounter procedure 12/29/2021 Office Visit Cardiology Gordon Lyn MD [address] [facility] [address] [place] [address] [facility] Start: 10-14-2021 Influenza vaccination Sequential Influenza Vaccine (#1) [facility] Start: 09-16-2021 Dual energy X-ray absorptiometry Dexa Bone Density Study [facility] Work Phone: Start: 09-16-2021 DXA Bone [Mass/Area] Bone density [facility] Work Phone: Start: 06-10-2020 COVID-19 Vaccine (2 - Moderna series) COVID-19 Vaccine (2 - Moderna series) [facility] Start: 10-04-2019 Respiratory Syncytial Virus Immunization: Risk, 60-74 Risk, or 75+ (1 - 1-dose 75+ series) Respiratory Syncytial Virus Immunization: Risk, 60-74 Risk, or 75+ (1 - 1-dose 75+ series) [facility] Start: 05-22-2019 Pneumococcal Vaccine: Age 65+ (2 - PCV) Pneumococcal Vaccine: Age 65+ (2 - PCV) [facility] Start: 05-22-2019 Pneumococcal Vaccine: Age 65+ (2 of 2 - PCV) Pneumococcal Vaccine: Age 65+ (2 of 2 - PCV) [facility] Start: 2009 Fall risk assessment Falls Risk Assessment [facility] Start: 2009 Pneumococcal Vaccine: Age 65+ (1 - PCV) Pneumococcal Vaccine: Age 65+ (1 - PCV) [facility] Start: 1994 Administration of herpes zoster vaccine Zoster Vaccines (1 of 2) [facility] Start: 1962 Hepatitis C screening Hepatitis C Screening [facility] Start: 1956 Depression screening using PHQ-9 (Patient Health Questionnaire 9) score [facility] Start: 10-04-1947 History and physical examination, annual for health maintenance Wellness Visit [facility] Start: 10-04-1947 Medicare Wellness Visit Medicare Wellness Visit [facility] Start: 04-05-1945 COVID-19 Vaccine (#1) COVID-19 Vaccine (#1) [facility] Start: 1944 Screening for osteoporosis Dexa Scan [facility] Start: 1944 Tetanus vaccination Tetanus: Every 10yrs [facility] End: 09-26-2024 Complete PFT with Pre and Post Bronchodilator Complete PFT with Pre and Post Bronchodilator PFT Routine PATEL (dyspnea on exertion) 1 Occurrences starting 09/27/2023 until 09/26/2024 [facility] Work Phone: Comment on above: 1 Occurrences starting 09/27/2023 until 09/26/2024 End: 11-04-2022 Echocardiography Echocardiogram complete Echocardiography Routine SOB (shortness of breath) 1 Occurrences starting 09/03/2021 until 11/04/2022 [facility] Work Phone: Comment on above: 1 Occurrences starting 09/03/2021 until 11/04/2022 End: 12-29-2022 Radionuclide myocardial perfusion study NM Myocardial Perfusion Multiple SPECT Imaging Routine Dyslipidemia PATEL (dyspnea on exertion) FH: CAD (coronary artery disease) 1 Occurrences starting 12/29/2021 until 12/29/2022 [facility] Work Phone: Comment on above: 1 Occurrences starting 12/29/2021 until 12/29/2022 Payers Date Payer Category Payer Self-pay [id number] 2017 Medicare [employer] [place] [employer] ADVANTAGE CHOICE PPO [id number] 2017-Present [phone] [address] [place] [id number] 2017 Medicare PPO [employer] M[employer] ADVAN TAGE CHOICE PPO [id number] 2013 Medicare [id number] 1945 Unknown [id number] 1945 Unknown [id number]. 1944 Unknown [id number] [id number]. 1944 Unknown [id number]. 1944 Unknown [id number] [id number]. 1944 Unknown [id number] 1945 Unknown [id number] Unknown [id number] Unknown [id number] Unknown [id number] Unknown [id number] Unknown [id number] Unknown [id number] Unknown [id number] Social History Date Type Detail Facility Start: 03-23-2020 End: 08-11-2022 Tobacco smoking status GAIS Tobacco smoking consumption unknown [facility] Start: 1945 Sex Assigned At Not on file [facility] Start: 1945 Sex Assigned At Female [facility] Start: 12-29-2021 End: 08-11-2022 Tobacco smoking status NHIS Ex-smoker [facility] End: 02-13-1971 History of tobacco use Current smoker [facility] End: 02-13-1971 History of tobacco use Cigarette Smoker [facility] History of tobacco use Passive smoker [facility] Start: 12-29-2021 Tobacco use and exposure Smokeless tobacco non-user [facility] Start: 12-29-2021 Alcohol intake Current drinke r of alcohol (finding) [facility] Start: 12-29-2021 Alcohol Comment Occ [facility] Start: 12-19-2021 End: 12-29-2021 Exposure to SARS-CoV-2 (event) Not sure [facility] Start: 12-29-2021 History of Social function [facility] Start: 12-29-2021 Tobacco use panel [facility] Start: 05-09-2024 End: 05-14-2024 Sex Female (finding) [facility] Clinical Notes 12-29-2021 to 05-10-2024 Telephone Encounter - Kip Ramirez MA - 12/27/2023 11:00 AM ESTTelephone Encounter - Kip Ramirez MA - 12/27/2023 11:00 AM ESTTelephone Encounter - Kip Ramirez MA - 12/26/2023 3:13 PM EST Note Date & Type Note Facility 05-10-2024 Radiology Diagnostic study note [facility] Imaging Services [address] [place], [place] [address] Chest without Contrast MR#: [id number] Acct: [id number] Name: EMILIA SOMMERS Rep #: [id number] : 1945 F 78 From: Shaina Sam MD PCP: Dr. Elio Cedeño MD Status: REG C Study:Chest without Contrast Date of Exam: 05/09/24 Exam# [id number] Ordering Dr: Jacek Anaya MD PROCEDURE: CHEST [...] or pneumothorax. Cardiovascular:The heart is normal in size.[id number] coronary artery calcifications are present.There are mild [...] Cedeño MD; Dr. Jacek Anaya MD ~ [place]: Signed [facility] 12-27-2023 Telephone encounter Note [facility] will send RX to [facility] 12-27-2023 Miscellaneous Notes Prefect will send RX to [facility] Yes, I just did a curbside visit with her when her came in, I put a note in September 24 of this year Received refill request electronically via [email or web address]. Pt last seen 12/29/2021, F/u in PRN. Refilled Metoprolol Succ 25mg Daily #90 with 3 refills. Rx sent to [facility]. documented in this encounter [facility] 12-27-2023 Telephone encounter Note Yes, I just did a curbside visit with her when her came in, I put a note in September 24 of this year [facility] 12-26-2023 Telephone encounter Note Received refill request electronically via inbasket. Pt last seen 12/29/2021, F/u in PRN. Refilled Metoprolol Succ 25mg Daily #90 with 3 refills. Rx sent to [facility]. [facility] 12-18-2023 Telephone encounter Note Received refill request electronically via inbasket. Pt last seen 12/29/21, F/u in PRN. Atorvastatin can be refill by PCP, will refued [facility] 12-18-2023 Miscellaneous Notes Received refill request electronically via inbasket. Pt last seen 12/29/21, F/u in PRN. Atorvastatin can be refill by PCP, will refued documented in this encounter [facility] 09-27-2023 History of Presen t illness Narrative Faxed PCP for labs Faxed PFT order to Kimi for scheduling [phone] Saw patient today when I was seeing [...] pressure She needs pulmonary function testing at [facility] documented in this encounter [facility] 09-25-2023 History of Presen t [...] pressure She needs pulmonary function testing at [facility] documented in this encounter [facility] 09-25-2023 Note Saw patient today [...] pressure She needs pulmonary function testing at [facility] or [place] AUTHENTICATED BY GORDON LYN, ON 09/25/2023 16:04:14 [facility] 01-31-2023 Telephone encounter Note Received refill request electronically via [email or web address]. Pt last seen 12/29/21, F/u in PRN. Refilled Metoprolol 25mg Daily #90 with 3 refill and Atorvastatin 40mg Daily #90 with 3 refill. Rx sent to [facility]. [facility] 01-31-2023 Miscellaneous Notes Received refill request electronically via [email or web address]. Pt last seen 12/29/21, F/u in PRN. Refilled Metoprolol 25mg Daily #90 with 3 refill and Atorvastatin 40mg Daily #90 with 3 refill. Rx sent to [facility]. documented in this encounter [facility] 01-16-2022 Evaluation + Plan note Associated Problem(s): PATEL (dyspnea on exertion) Plans for echo and stress. [facility] 01-16-2022 Miscellaneous Notes Associated Problem(s): [...] 40 mg daily. documented in this encounter [facility] 01-16-2022 Evaluation + Plan note Associated Problem(s): Dyslipidemia Her LDL is 140. I do feel at the age of 76 and a family history of early heart disease, there is a benefit to get that LDL lower with a statin. We talked about the pleomorphic plaque stabilization benefits. She is agreeable and will start at atorvastatin 40 mg daily. [facility] 12-29-2021 History of Presen t illness Narrative Interventional Cardiology Clinic Consult Heart & Vascular [facility] 12/29/2021 Gordon Lyn MD [address] [address] Patient: Emilia Sommers Date of : 1945 [...] negative stress test and echo back in 2019. She denies any lower extremity edema or palpitations. Only significant medical history includes having 3 children. Last LDL I can see was approximately 140. Blood pressure at rest today is excellent at 124/70. Objective Tobacco Use Smoking Status Former Types: Cigarettes Quit date: 1972 Years since quittin.9 Passive exposure: Past Smokeless [...] is not nervous/anxious. documented in this encounter [facility] Evaluation note Diagnosis Angina pectoris (HCC)- Primary Other and unspecified angina pectoris Coronary artery disease, unspecified vessel or lesion type, unspecified whether angina present, unspecified whether [place] or transplanted heart SOB (shortness of breath) Shortness of breath [facility] Work Phone: Evaluation note* Diagnosis Dyslipidemia- Primary Other and unspecified hyperlipidemia PATEL (dyspnea on exertion) Other dyspnea and respiratory abnormality FH: CAD (coronary artery disease) Family history of ischemic heart disease [facility] Diagnosis Onset Date Resolution Status DDD (degenerative disc disease), lumbar acute Scoliosis deformity of spine acute [facility] Work Phone: Evaluation note* Diagnosis PATEL (dyspnea on exertion)- Primary Other dyspnea and respiratory abnormality [facility] Diagnosis PATEL (dyspnea on exertion)- Primary Other dyspnea and respiratory abnormality documented in this encounter [facility] (narrative)No reason for referral information availableWHolmes [facility] Work Phone: Summary Purpose Family History No Family History Records FoundNo Family History Records FoundNo Family History Records FoundNo Family History Records Found Advance Directives No Advanced Directives Records Found Advance Directive Response Recorded Date/ Time Living Will Yes March 23 3:58pm Power of Asphalt Blender Yes March 23, 2020 3:58pm Advance Directive Response Recorded Date/ Time Living Will Yes March 23 2:58pm Power of Asphalt Blender Yes March 23, 2020 2:58pm Reason for Referral Specialty Diagnoses / Procedures Referred By Bryon montejo Referred To Contact Cardiology Diagnoses SOB (shortness of breath) Procedures Echocardiogram complete Gordon Lyn MD [address] [facility] [address] [place] [address] Referral ID Status Reason Start Date Expiration Date V isits Requested Visits Authorized [id number] New Request 09/03/2021 09/03/2022 1 1 Specialty Diagnoses / Procedures Referred By Bryon montejo Referred To Contact Radiology Diagnoses Dyslipidemia PATEL (dyspnea on exertion) FH: CAD (coronary artery disease) Procedures NM Myocardial Perfusion Multiple SPECT Gordon Lyn MD [address] [facility] [address] [place] [address] Referral ID Status Reason Start Date Expiration Date V isits Requested Visits Authorized [id number] Pending Review 12/29/2021 12/29/2022 4 4 Specialty Diagnoses / Procedures Referred By Contac t Referred To Contact Pulmonary Disease Diagnoses PATEL (dyspnea on exertion) Gordon Lyn MD [address] [facility] [address] [place] [address] Referral ID Status Reason Start Date Expiration Date Visits Requested Visits Authorized [id number] Pending Review Specialty Services Required/Pat ient's Best [...] section and content) DATE CREATED AUTHOR 06/21/2020 [facility] DATE CREATED AUTHOR AUTHOR'S ORGANIZ ATION 02/24/2022 [facility] DATE CREATED AUTHOR AUTHOR'S ORGANIZ ATION 12/11/2023 [facility] DATE CREATED AUTHOR AUTHOR'S ORGANIZ ATION 09/14/2024 [facility] Care Teams (unrecognized sec tion and content) Historic Sites Registrar Relationship Specialty Start Date End Date Jose Robb MD [address] [place] [address] PCP - General Emergency Medicine 09/03/21 Historic Sites Registrar Relationship Specialty Start Date End Date Jose Robb MD [address] [place] [address] PCP - General Emergency Medicine 09/03/21 Team [...] MD Primary Care Provider, Attending Provider Active Historic Sites Registrar Relationship Specialty Start Date End Date Jose Robb MD [address] [facility] [place] [address] PCP - General Emergency Medicine 09/03/21 Historic Sites Registrar Relationship Specialty Start Date End Date Jose Robb MD [address] [place] [address] PCP - General Emergency Medicine 09/03/21 Historic Sites Registrar Relationship Specialty Start Date End Date Jose Robb MD [address] [facility] [place] [address] PCP - General Emergency Medicine 09/03/21 Historic Sites Registrar Relationship Specialty Start Date End Date Jose Robb MD [address] [facility] [place] [address] PCP - General Emergency Medicine 09/03/21 Historic Sites Registrar Relationship Specialty Start Date End Date Jose Robb MD [address] [facility] [place] [address] PCP - General Emergency Medicine 09/03/21 Historic Sites Registrar Relationship Specialty Start Date End Date Jose Robb MD [address] [place] [address] PCP - General Emergency Medicine 09/03/21 Historic Sites Registrar Relationship Specialty Start Date End Date Jose Robb MD [address] [place] [address] PCP - General Emergency Medicine 09/03/21 Team [...] May 09, 2024 End: May 09, 2024 Team Status: Active Member Role/Relationship Status Dates Dr. Elio Cedeño MD Primary Care Provider Active Team Status: Inactive Member Role/Relationship Status Dates Dr. Elio Cedeño MD Primary Care Provider Active Start: September 09, 2024 End: September 09, 2024 Dr. Jacek Anaya MD Attending Provider Active Start: September 09, 2024 End: September 09, 2024 Dr. Jacek Anaya MD Referring Provider Active Start: September 09, 2024 End: September 09, 2024 Goals (unrecognized section and content) [...] BE BASED ON THE PRIMARY CLINICAL RECORDS. [employer] provides no warranty or guarantee of the accuracy or completeness of information in this document.
--- OUTSIDE RECORDS SUMMARY | 2024-11-08 12:31 | XMS RPT_ITS | CCD ---
Author Organization [facility] Care Team Providers Care Electric Meter Reader Name Role Phone Jose Robb MD Primary [...] Care Provider Dr. Elio Cedeño Referring Provider [phone] Nitish Maher Attending Provider Dr. Doug Solomon Attending Provider Jose Robb MD Primary Care Provider JOSE ROBB Primary Care Unavaila ble LYNGORDON Attending Unavailable JOSE ROBB Primary Care Unavaila ble KIP RAMIREZ Attending Unavailable Dr. Elio Cedeño MD Primary Care Provider [phone] Dr. Jacek Anaya MD, V Attending Provider Dr. Jacek Anaya MD, V Referring Provider [phone] Dr. Elio Cedeño MD Primary Care Provider [phone] Dr. Jacek Anaya MD, V Attending Provider [phone] Dr. Jacek Anaya MD, V Referring Provider [phone] Elio Cedeño Primary Care Unavailable Jaclyn, Jacek Jung Attending Unavailable Sibalphonos, Jacek Jung Referring Unavailable Sibalphonso, Jacek Jung Attending Unavailable Elio Cedeño Primary Care Unavailable Jaclyn, Jacek Jung Referring Unavailable Elio Cedeño Primary Care Unavailable Jaclyn, Jacek Jung Attending Unavailable Elio Cedeño Primary Care Unavailable JOSE SLATER Attending Unavailable JOSE SLATER Referring Unavailable Elio Cedeño Primary Care Unavailable Sibalphonso, Jacke Jung Attending Unavailable Sibalphonso, Jacek Jung Referring Unavailable Jose Luis Pettit Attending Unavailable Gala, Elio Primary Care Unavailable Sibalphonso, Jacek Jung Referring Unavailable Jaclyn, Jacek Jung Attending Unavailable Allergies Allergy Classification Reported Allergen(s) Allergy Type Date of Onset Reaction(s) Facility (20 sources) Sulfonamides (Antibiotic); Translations: [SULFA (SULFONAMIDE ANTIBIOTICS)] Propensity to adverse reactions 4 Shortness Of Breath [facility] Medications Current Medications Medication Drug Class(es) Dates [...] IMMUNOGLOB A QN 311 mg/dL Normal 64-422 [facility] Comment on above: Order Comment: N Performed By: #### L 3200.1100 #### [facility] Laboratory [address] [place], [address] IMMUNOGLOB E QN 849 IU/mL High 6-495 [facility] Comment on above: Order Comment: N Result Comment: Perf ormed at: [facility] [id number] Charger Operator Helper: Magdiel Styles PhD, Phone: [phone] Performed at: [facility] [id number] Charger Operator Helper: Ewelina Lipscomb MD, Phone: [phone] Performed By: #### L 3200.1100 #### [facility] Laboratory [address] [place], [address] IMMUNOGLOB G QN 1198 mg/dL Normal 586-1602 [facility] Comment on above: Order Comment: N Performed By: #### L 3200.1100 #### [facility] Laboratory [address] [place], [address] IMMUNOGLOB M QN 100 mg/dL Normal 26-217 [facility] Comment on above: Order Comment: N Performed By: #### L 3200.1100 #### [facility] Laboratory [address] [place], [address] IgEOrdered By: Jacek rueda on 09-09-2024 IgE 849 IU/mL High 6-495 [facility] Comment on above: Performed at: [address] [id number] Director: Magdiel Styles PhD, Phone: [phone] at: [facility] [id number] Director: Ewelina Lipscomb MD, Phone: [phone] Serum or plasma IgA measurem ent (mass/volume)Ordered By: Jacek Anaya on 09-09-2024 IgA [Mass/Vol] 311 mg/dL 64-422 [facility] Serum or plasma IgG measurem ent (mass/volume)Ordered By: Jacek Anaya on 09-09-2024 IgG [Mass/Vol] 1198 mg/dL 586-1602 [facility] Chest without Contraston Chest without Contrast [facility] Imaging Services [address] [facility] [address] [place], [place] [address] Chest without Contrast MR#: [id number] Acct: [id number] Name: EMILIA SOMMERS Rep #: [id number] : 1945 F 78 From: Osiris Sam MD PCP: Dr. Elio Cedeño MD Status: REG CLI Study: Chest without Contrast Date of Exam: 05/09/24 Exam# [id number] Ordering Dr: Jacek Anaya MD PROCEDURE: CHEST [...] or pneumothorax. Cardiovascular:The heart is normal in size.Mpgd-ul-bfwahlu e coronary artery calcifications are present.There are [...] Elio Cedeño MD; Dr. Jacek Anaya MD National Expansion Recruiter: Signed Normal [facility] CBC-Complete Blood Cnt No Rajani cannon 05-02-2024 CBC panel Auto (Bld) Normal [facility] Comment on above: Performed By: #### L 100.7643 #### [facility] Laboratory [address] [place], [address] Erythrocyte distribution wid th ratioOrdered By: Jacek Anaya on 05-02-2024 Erythrocyte distribution width (RBC) [Ratio] 18.6 % High 11.6-14.6 [facility] Erythrocyte distribution wid th standard deviationOrdered By: Jacek Anaya on 05-02-2024 Erythrocyte distribution width (RBC) [Entitic vol] 68.9 fL High 35.1-43.9 [facility] Hematocrit Auto (Bld) [Volum e fraction]Ordered By: Jacek Anaya on 05-02-2024 Hematocrit (Bld) [Volume fraction] 29.1 % Low 37-47 [facility] Hemoglobin measurementOrdere d By: Jacek Anaya on 05-02-2024 Hemoglobin (Bld) [Mass/Vol] 9.2 g/dL Low 12.0-15.0 [facility] MCV (mean corpuscular volume ) determinationOrdered By: Jacek Anaya on 05-02-2024 MCV (RBC) [Entitic vol] 102.5 fL High 81-99 [facility] Mean corpuscular hemoglobin (MCH) determinationOrdered By: Jacek Anaya on 05-02-2024 MCH (RBC) [Entitic mass] 32.4 pg High 27.0-32.0 [facility] Mean corpuscular hemoglobin concentration (MCHC) determinationOrdered By: Jacek Anaya on 05-02-2024 MCHC (RBC) [Mass/Vol] 31.6 g/dL Low 32-36 [facility] Mean platelet volume determi nationOrdered By: Jacek Anaya on 05-02-2024 Platelet mean volume (Bld) [Entitic vol] 12.3 fL High 6.2-12.0 [facility] Platelet countOrdered By: Melanie Anaya on 05-02-2024 Platelets (Bld) [#/Vol] 270 10*3/uL 150-450 [facility] RBC Auto (Bld) [#/Vol]Ordere d By: Jacek Anaya on 05-02-2024 RBC (Bld) [#/Vol] 2.84 10*6/uL Low 4.2-5.4 [facility] White blood cell (WBC) count Ordered By: Jacek Anaya on 05-02-2024 WBC (Bld) [#/Vol] 7.4 10*3/uL 4.4-11.0 [facility] Chest PA and Lateralon 12-27 Chest PA and Lateral [facility] Imaging Services [address] [place], [place] [address] Chest PA and Lateral MR#: [id number] Acct: [id number] Name: EMILIA SOMMERS Rep #: [id number] : 1945 F 78 From: Stu Bustillo DO PCP: Dr. Elio Cedeño MD Status: REG CLI Study: Chest PA and Lateral Date of Exam: 12/28/23 Exam# [id number] Ordering Dr: Jacek Anaya MD [id number] INDICATION: MOD PERS ASTHMA/SOB/COUGH EXAMINATION/TECHNIQU E: X-RAY [...] Elio Cedeño MD; Dr. Jacek Anaya MD National Expansion Recruiter: Signed Normal [facility] Basophil percentageOrdered B y: Elio Cedeño on 09-08-2022 Chloride [Moles/Vol] 107 mmol/L 98-107 [facility] Cholesterol [Mass/Vol] 129 mg/dL <200 [facility] Comment on above: <200 mg/dL Desirable 200-240 mg/dL Borderline >240 mg/dL High Risk Glucose [Mass/Vol] 108 mg/dL 74-106 [facility] Comment on above: Fasting Glucose resu lt from 100 to 125 mg/dL suggests IMPAIRED HOMEOSTASIS per A.D.A. criteria. Potassium [Moles/Vol] 5.0 mmol/L 3.5-5.1 [facility] Sodium [Moles/Vol] 137 mmol/L 136-145 [facility] Triglyceride [Mass/Vol] 71 mg/dL <199 [facility] Comment on above: The drugs N-Acetylcy steine and Metamizole may falsely depress this assay.Serum Triglycerides Reference Interval Normal <150 mg/dL Borderline high 150 - 199 mg/dL High 200 - 499 mg/dL Very High > or = 500 mg/dL Laboratory - Chemistry and C hemistry - challengeOrdered By: Elio Cedeño on 09-08-2022 CO2 [Moles/Vol] 26.0 mmol/L 21.0-32.0 [facility] Urea nitrogen/Creatinine [Mass ratio] 20.7 mg/mg 10-20 [facility] No Panel InformationOrdered By: Elio Cedeño on 09-08-2022 Estimated GFR (MDRD) Amer 43 mL/min >60 [facility] Comment on above: GFR Calc Estimated GFR (MDRD) Non-Af Amer 36 mL/min >60 [facility] Comment on above: Non- GFR Calc Vitamin D 25-Hydroxy 29.0 ng/mL [facility] Comment on above: Vitamin D 25(OH) Sta tus Range Deficiency <20 ng/mL (50nmol/L) Insufficiency 20 - 30 ng/mL (50 - 75 nmol/L) Sufficiency 30 - 100 ng/mL (75 - 250 nmol/L) Toxicity >100 ng/mL (>250 nmol/L) Serum or plasma calcium farhad urement (mass/volume)Ordered By: Elio Cedeño on 09-08-2022 Calcium [Mass/Vol] 9.0 mg/dL 8.5-10.1 [facility] Serum or plasma cholesterol in HDL measurement (mass/volume)Ordered By: Elio Cedeño on 09-08-2022 Cholesterol in HDL [Mass/Vol] 57 mg/dL >40 [facility] Comment on above: The drugs N-Acetylcy steine and Metamizole may falsely depress this assay. Reference Range HDL <40 mg/dL Low HDL Cholesterol HDL >or= 60 mg/dL High HDL Cholesterol Serum or plasma cholesterol in VLDL measurement (mass/volume)Ordered By: Elio Cedeño on 09-08-2022 Cholesterol in VLDL [Mass/Vol] 14 mg/dL 5-40 [facility] Serum or plasma creatinine m easurement (mass/volume)Ordered By: Elio Cedeño on 09-08-2022 Creatinine [Mass/Vol] 1.50 mg/dL 0.55-1.02 [facility] Comment on above: The validity of the calculated GFR & GFRAA in patients over 70 years has not been determined. Clinical correlation is essential. Serum or plasma low density lipoprotein (LDL) cholesterol measurement (mass/volume)Ordered By: Elio Cedeño on 09-08-2022 Cholesterol in LDL [Mass/Vol] 58 mg/dL 0-130 [facility] Serum or plasma urea nitroge n measurement (mass/volume)Ordered By: Elio Cedeño on 09-08-2022 Urea nitrogen [Mass/Vol] 31 mg/dL 7-18 [facility] Serum or plasma uric acid me asurement (mass/volume)Ordered By: Elio Cedeño on 09-08-2022 Urate [Mass/Vol] 6.9 mg/dL 2.6-6.0 [facility] Comment on above: The drugs N-Acetylcy steine and Metamizole may falsely depress this assay. Thin prep Papanicolaou smear with manual screeningOrdered By: Elio Cedeño on 09-08-2022 Thin prep Papanicolaou smear with manual screening 4 5-15 [facility] Basophil percentageon 2021 Chloride [Moles/Vol] 108 mmol/L 98-107 [facility] Work Phone: Cholesterol [Mass/Vol] 213 mg/dL <200 [facility] Work Phone: Comment on above: <200 mg/dL Desirable 200-240 mg/dL Borderline >240 mg/dL High Risk Glucose [Mass/Vol] 101 mg/dL 74-106 [facility] Work Phone: Comment on above: Fasting Glucose resu lt from 100 to 125 mg/dL suggests IMPAIRED HOMEOSTASIS per A.D.A. criteria. Potassium [Moles/Vol] 4.2 mmol/L 3.5-5.1 [facility] Work Phone: Sodium [Moles/Vol] 141 mmol/L 136-145 [facility] Work Phone: Triglyceride [Mass/Vol] 102 mg/dL <199 [facility] Work Phone: Comment on above: The drugs N-Acetylcy steine and Metamizole may falsely depress this assay.Serum Triglycerides Reference Interval Normal <150 mg/dL Borderline high 150 - 199 mg/dL High 200 - 499 mg/dL Very High > or = 500 mg/dL Laboratory - Chemistry and C hemistry - challengeon 09-06-2021 CO2 [Moles/Vol] 26.0 mmol/L 21.0-32.0 [facility] Work Phone: Urea nitrogen/Creatinine [Mass ratio] 15.4 mg/mg 10-20 [facility] Work Phone: No Panel Informationon 09-06 Estimated GFR (MDRD) Amer 77 mL/min >60 [facility] Work Phone: Comment on above: GFR Calc Estimated GFR (MDRD) Non-Af Amer 64 mL/min >60 [facility] Work Phone: Comment on above: Non- GFR Calc Vitamin D 25-Hydroxy 24.6 ng/mL [facility] Work Phone: Comment on above: Vitamin D 25(OH) Sta tus Range Deficiency <20 ng/mL (50nmol/L) Insufficiency 20 - 30 ng/mL (50 - 75 nmol/L) Sufficiency 30 - 100 ng/mL (75 - 250 nmol/L) Toxicity >100 ng/mL (>250 nmol/L) Serum or plasma calcium farhad urement (mass/volume)on 09-06-2021 Calcium [Mass/Vol] 9.0 mg/dL 8.5-10.1 [facility] Work Phone: Serum or plasma cholesterol in HDL measurement (mass/volume)on 09-06-2021 Cholesterol in HDL [Mass/Vol] 53 mg/dL >40 [facility] Work Phone: Comment on above: The drugs N-Acetylcy steine and Metamizole may falsely depress this assay. Reference Range HDL <40 mg/dL Low HDL Cholesterol HDL >or= 60 mg/dL High HDL Cholesterol Serum or plasma cholesterol in VLDL measurement (mass/volume)on 09-06-2021 Cholesterol in VLDL [Mass/Vol] 20 mg/dL 5-40 [facility] Work Phone: Serum or plasma creatinine m easurement (mass/volume)on 09-06-2021 Creatinine [Mass/Vol] 0.91 mg/dL 0.55-1.02 [facility] Work Phone: Comment on above: The validity of the calculated GFR & GFRAA in patients over 70 years has not been determined. Clinical correlation is essential. Serum or plasma low density lipoprotein (LDL) cholesterol measurement (mass/volume)on 09-06-2021 Cholesterol in LDL [Mass/Vol] 140 mg/dL 0-130 [facility] Work Phone: Serum or plasma urea nitroge n measurement (mass/volume)on 09-06-2021 Urea nitrogen [Mass/Vol] 14 mg/dL 7-18 [facility] Work Phone: Thin prep Papanicolaou smear with manual screeningon 09-06-2021 Thin prep Papanicolaou smear with manual screening 7 5-15 [facility] Work Phone: CORONAVIRUS 2019 BY PCRon SARS-CoV-2 (COVID-19) RNA BRIDGET+probe Ql (Unsp spec) Detected Abnormal Not Detected [facility] Comment on above: Result Comment: . This [...] patient management decisions. Fact sheet for providers: https://www.fda.gov/media/499144/download Fact sheet for patients: https://www.fda.gov/media/041296/download This test has received FDA Emergency Use Authorization (EUA) and has been verified by [facility] ([facility]). This test is only authorized for the duration of time that circumstances exist to justify the authorization of the emergency use of in vitro diagnostic tests for the detection of SARS-CoV-2 virus and/or diagnosis of COVID-19 infection under section 564(b)(1) of the Act, 21 U.S.C. 360bbb-3(b)(1), unless the authorization is terminated or revoked sooner. [facility] is certified under CLIA-88 as qualified to perform high complexity testing. Testing is performed in the [facility] laboratories located at [address] [place] [address]. Performed By: #### C OV19 #### [address] [place] [address] Covid 19 Resultson 1 SARS-CoV-2 (COVID-19) RNA [...] You may also be contacted by the [facility] to see if any of your [...] or Naproxen (Aleve) can also be used. Grzn-joq-pxtjadm cough and cold medicines can be used according to the instructions on the package. Some jqen-qnl-ffcxsid medicines also contain acetaminophen. Make sure you [...] water are not available, use alcohol-based hand funeral home location manager. Avoid touching your eyes, nose, and mouth [...] like ibuprofen (Motrin) (more content not included)... [facility] CORONAVIRUS 2019 BY PCRon DATE OF SYMPTOM ONSET [YYYYMMDD]? 20200317 [facility] Comment on above: Performed By: #### C OV19 #### [facility] [address] [place] [address] Lab Specimen Source Nasal, Nasopharyngeal [facility] Comment on above: Performed By: #### C OV19 #### [facility] [address] [place] [address] Provider Note - ED v2on Provider Note [...] SIGNS: T PRBP SpO2O2(LPM) %FiO2 Method 18-Mar-2020 17:06:[id number] /83 95 MEDICAL DECISION MAKING/ED COURSE MDM/ED COURSE: This note was generated with voice recognition software and may contain errors including spelling, grammar, syntax, and misrecognization of what was dictated Chief Complaint COVID symptoms History of Present Illness Patient presents with COVID symptoms for approximately 5 days. Symptoms include fever, headache, cough. Patient denies use of any inkz-gkv-plwdkvl medications at home prior to arrival for [...] normal strength, no tenderness, no swelling. Integumentary: [place], warm, dry, and Intact. Neurologic: Alert, Oriented, [...] Electronic Signatures for Addendum Section: Prashant Terry (POWER GENERATION TECHNICIAN-[facility]) (Signed Addendum 19-Mar-2020 08:25) Patient was notified of her positive coronavirus test result on 03/19/2020 at approximately 8:25 AM Electronic Signatures: Prashant Terry (POWER GENERATION TECHNICIAN-ROADWAY DESIGNER) (Signed 19-Mar-2020 08:24) Authored: HPI, PMH, PE, Results/Vital Signs, MDM/ED Course, Clinical Impression, Attestation, Chart Review, Scores Last Updated: 19-Mar-2020 08:25 by Prashant Terry (POWER GENERATION TECHNICIAN-ROADWAY DESIGNER) [facility] Vital Signs Date Time Vital Sign Value Performing Clinician Mickyi yelitza 08-11-2022 14:22-0400 Body height 160.[address] Elio Cedeño Work Phone: [facility] 08-11-2022 14:22-0400 Body mass index (BMI) [Ratio] 27.4 kg/m2 Dr. Elio Cedeño Work Phone: [facility] 08-11-2022 14:22-0400 Body weight 70.[address] Elio Cedeño Work Phone: [facility] 12-29-2021 12:38-0500 Diastolic blood pressure 70 mm[Hg] Grodon Lyn MD Work Phone: [facility] 12-29-2021 12:38-0500 Systolic blood pressure 124 mm[Hg] Gordon Lyn MD Work Phone: [facility] 12-29-2021 12:31-0500 Body height 158.8 cm Gordon Lyn MD Work Phone: [facility] 12-29-2021 12:31-0500 Body mass index (BMI) [Ratio] 27.72 kg/m2 Gordon Lyn MD Work Phone: [facility] 12-29-2021 12:31-0500 Body weight 69.85 kg Gordon Lyn MD Work Phone: [facility] 12-29-2021 12:31-0500 Heart rate 84 /min Gordon Lyn MD Work Phone: [facility] 12-29-2021 12:31-0500 SaO2% (BldA) [Mass fraction] 95 % Gordon Lyn MD Work Phone: [facility] Encounters Encounter Date Encounter Type Care Provider Facility Start: 09-09-2024 End: 09-09-[address] Elio Cedeño MD Work Phone: -Laboratory Start: 09-09-2024 End: 09-09-[address] Jacek Anaya MD -Laboratory Work Phone: Start: 09-09-2024 End: 09-09-2024 ambulatory Elio Cedeño Facility:[facility] Start: 05-09-2024 End: 05-09-[address] Elio Cedeño MD Work Phone: [facility] Work Phone: Start: 05-09-2024 End: 05-09-[address] [facility] Start: 05-09-2024 End: 05-09-2024 ambulatory Jacek Anaya Facility:[facility] Start: 05-02-2024 End: 05-02-[address] Elio Cedeño MD Work Phone: [facility] Work Phone: Start: 05-02-2024 End: 05-02-[address] [facility] Start: 05-02-2024 End: 05-02-[facility] Start: 12-28-2023 End: 12-28-2023 ambulatory [facility] Facility:[facility] Start: 12-26-2023 End: 12-27-2023 Refill Gordon Lyn MD Work Phone: [facility] Comment on above: Medication Refill (M etoprolol Succ ) Start: 12-17-2023 End: 12-18-2023 Refill Gordon Lyn MD Work Phone: [facility] Comment on above: Medication Refill (A torvastatin ) Start: 11-15-2023 ambulatory JOSE KIRAN [facility] Start: 11-10-2023 ambulatory JOSE KIRAN [facility] Start: 11-03-2023 End: 11-03-2023 Orders Only Josselin Guaman RN [facility] Comment on above: PATEL (dyspnea on exer tion) (Primary Dx) Start: 10-25-2023 End: 10-25-2023 ambulatory Elio Cedeño Facility:[facility] Start: 09-27-2023 End: 09-27-2023 Orders Only Josselin Guaman RN [facility] Comment on above: PATEL (dyspnea on exer tion) (Primary Dx) Start: 09-25-2023 End: 09-25-2023 Documentation procedure Gordon Lyn MD Work Phone: [facility] Start: 01-31-2023 Refill Gordon gates MD Work Phone: [facility] Comment on above: Medication Refill Start: 11-29-2022 End: 11-29-[address] Elio Cedeño Work Phone: [facility] Work Phone: Start: 11-29-2022 End: 11-29-[address] Elio Cedeño Work Phone: [facility]-Outpatient Breast Imaging Work Phone: Start: 09-08-2022 End: 09-08-[address] Elio Cedeño Work Phone: [facility] Work Phone: Start: 09-08-2022 End: 09-08-[address] Elio Cedeño Work Phone: [facility]-Laboratory, [place] Work Phone: Start: 08-11-2022 End: 08-11-[address] Elio Cedeño Work Phone: [facility] Work Phone: Start: 08-05-2022 End: 08-05-[address] Elio Cedeño Work Phone: [facility] Work Phone: Start: 08-05-2022 End: 08-05-[address] Elio Cedeño Work Phone: [facility]-Physical Therapy Work Phone: Start: 08-05-2022 Registered Recurring [facility] Therapy Start: 08-04-2022 End: 08-04-2022 ambulatory [facility] Work Phone: Start: 08-04-2022 End: 08-04-2022 Patient encounter procedure [facility] - [facility] Start: 01-25-2022 End: 01-26-2022 ambulatory GORDON LYN [facility] Start: 01-10-2022 End: 01-10-2022 ambulatory [facility] Work Phone: Start: 01-10-2022 End: 01-10-2022 Patient encounter procedure [facility]-Radiology, [place] Start: 12-29-2021 End: 12-29-2021 Office outpatient new 30 minutes Gordon Lyn MD Work Phone: [facility] Comment on above: Dyslipidemia (Primar y Dx); PATEL (dyspnea on exertion); FH: CAD (coronary artery disease) Start: 09-16-2021 End: 09-16-2021 Patient encounter procedure [facility]-Outpatient Bone Densitometry Start: 09-06-2021 End: 09-06-2021 Patient encounter procedure [facility], [place] [facility] Start: 09-03-2021 Orders Only Ann Nance RN [facility] Comment on above: Angina pectoris (HCC ) (Primary Dx); Coronary artery disease, unspecified vessel or lesion type, unspecified whether angina present, unspecified whether [place] or transplanted heart; SOB (shortness of breath) [...] Start: 06-09-2025 Tetanus vaccination Tetanus: Every 10yrs [facility] Start: 10-15-2023 COVID-19 Vaccine ( season) COVID-19 Vaccine ( season) [facility] Start: 10-15-2023 COVID-19 Vaccine ( season) COVID-19 Vaccine ( season) [facility] Start: 10-15-2023 Influenza vaccination Influenza Vaccine (#1) [facility] Start: 10-14-2022 COVID-19 Vaccine ( season) COVID-19 Vaccine ( season) [facility] Start: 10-14-2022 Influenza vaccination Sequential Influenza Vaccine (#1) [facility] Start: 09-16-2022 Screening for malignant neoplasm of breast Mammogram [facility] Start: 01-25-2022 End: 01-25-2022 Patient encounter procedure 01/25/2022 Appointment Cardiology Gordon Lyn MD [address] [place] [address] [facility] Start: 01-25-2022 End: 01-25-2022 Patient encounter procedure 01/25/2022 Appointment Cardiology Gordon Lyn MD [address] [facility] [address] [place] [address] [facility] Start: 12-29-2021 End: 12-29-2021 Patient encounter procedure 12/29/2021 Office Visit Cardiology Gordon Lyn MD [address] [facility] [address] [place] [address] [facility] Start: 10-14-2021 Influenza vaccination Sequential Influenza Vaccine (#1) [facility] Start: 09-16-2021 Dual energy X-ray absorptiometry Dexa Bone Density Study [facility] Work Phone: Start: 09-16-2021 DXA Bone [Mass/Area] Bone density [facility] Work Phone: Start: 06-10-2020 COVID-19 Vaccine (2 - Moderna series) COVID-19 Vaccine (2 - Moderna series) [facility] Start: 10-04-2019 Respiratory Syncytial Virus Immunization: Risk, 60-74 Risk, or 75+ (1 - 1-dose 75+ series) Respiratory Syncytial Virus Immunization: Risk, 60-74 Risk, or 75+ (1 - 1-dose 75+ series) [facility] Start: 05-22-2019 Pneumococcal Vaccine: Age 65+ (2 - PCV) Pneumococcal Vaccine: Age 65+ (2 - PCV) [facility] Start: 05-22-2019 Pneumococcal Vaccine: Age 65+ (2 of 2 - PCV) Pneumococcal Vaccine: Age 65+ (2 of 2 - PCV) [facility] Start: 2009 Fall risk assessment Falls Risk Assessment [facility] Start: 2009 Pneumococcal Vaccine: Age 65+ (1 - PCV) Pneumococcal Vaccine: Age 65+ (1 - PCV) [facility] Start: 1994 Administration of herpes zoster vaccine Zoster Vaccines (1 of 2) [facility] Start: 1962 Hepatitis C screening Hepatitis C Screening [facility] Start: 1956 Depression screening using PHQ-9 (Patient Health Questionnaire 9) score [facility] Start: 10-04-1947 History and physical examination, annual for health maintenance Wellness Visit [facility] Start: 10-04-1947 Medicare Wellness Visit Medicare Wellness Visit [facility] Start: 04-05-1945 COVID-19 Vaccine (#1) COVID-19 Vaccine (#1) [facility] Start: 1944 Screening for osteoporosis Dexa Scan [facility] Start: 1944 Tetanus vaccination Tetanus: Every 10yrs [facility] End: 09-26-2024 Complete PFT with Pre and Post Bronchodilator Complete PFT with Pre and Post Bronchodilator PFT Routine PATEL (dyspnea on exertion) 1 Occurrences starting 09/27/2023 until 09/26/2024 [facility] Work Phone: Comment on above: 1 Occurrences starting 09/27/2023 until 09/26/2024 End: 11-04-2022 Echocardiography Echocardiogram complete Echocardiography Routine SOB (shortness of breath) 1 Occurrences starting 09/03/2021 until 11/04/2022 [facility] Work Phone: Comment on above: 1 Occurrences starting 09/03/2021 until 11/04/2022 End: 12-29-2022 Radionuclide myocardial perfusion study NM Myocardial Perfusion Multiple SPECT Imaging Routine Dyslipidemia PATEL (dyspnea on exertion) FH: CAD (coronary artery disease) 1 Occurrences starting 12/29/2021 until 12/29/2022 [facility] Work Phone: Comment on above: 1 Occurrences starting 12/29/2021 until 12/29/2022 Payers Date Payer Category Payer Self-pay [id number] 2017 Medicare [employer] [place] [employer] ADV[employer]AGE CHOICE PPO [id number] 2017-Present [phone] [address] [place] [id number] 2017 Medicare PPO [employer] ADVAN TAGE CHOICE PPO [id number] 2013 Medicare [id number] 1945 Unknown [id number] 1945 Unknown [id number] [id number]. 1945 Unknown [id number] [id number]. 1945 Unknown [id number] [id number]. 1945 Unknown [id number] 2.840.1.930293.3.579.2. 1945 Unknown [id number] [id number] 1945 Unknown [id number] [id number] Unknown [id number] [id number] Unknown [id number] [id number] Unknown [id number] [id number] Unknown [id number] [id number] Unknown [id number] [id number] Unknown [id number] Unknown [id number] Social History Date Type Detail Facility Start: 03-23-2020 End: 08-11-2022 Tobacco smoking status HIIS Tobacco smoking consumption unknown [facility] Start: 1945 Sex Assigned At Not on file [facility] Start: 1945 Sex Assigned At Female [facility] Start: 12-29-2021 End: 08-11-2022 Tobacco smoking status NHIS Ex-smoker [facility] End: 02-13-1971 History of tobacco use Current smoker [facility] End: 02-13-1971 History of tobacco use Cigarette Smoker [facility] History of tobacco use Passive smoker [facility] Start: 12-29-2021 Tobacco use and exposure Smokeless tobacco non-user [facility] Start: 12-29-2021 Alcohol intake Current drinke r of alcohol (finding) [facility] Start: 12-29-2021 Alcohol Comment Occ [facility] Start: 12-19-2021 End: 12-29-2021 Exposure to SARS-CoV-2 (event) Not sure [facility] Start: 12-29-2021 History of Social function [facility] Start: 12-29-2021 Tobacco use panel [facility] Start: 05-09-2024 End: 05-14-2024 Sex Female (finding) [facility] Clinical Notes 12-29-2021 to 05-10-2024 Telephone Encounter - Kip Ramirez MA - 12/27/2023 11:00 AM ESTTelephone Encounter - Kip Ramirez MA - 12/27/2023 11:00 AM ESTTelephone Encounter - Kip Ramirez MA - 12/26/2023 3:13 PM EST Note Date & Type Note Facility 05-10-2024 Radiology Diagnostic study note [facility] Imaging Services [address] [place], [place] [address] Chest without Contrast MR#: [id number] Acct: [id number] Name: EMILIA SOMMERS Rep #: [id number] : 1945 F 78 From: Shaina Sam MD PCP: Dr. Elio Cedeño MD Status: REG C Study:Chest without Contrast Date of Exam: 05/09/24 Exam# [id number] Ordering Dr: Jacek Anaya MD PROCEDURE: CHEST [...] or pneumothorax. Cardiovascular:The heart is normal in size.[id number] coronary artery calcifications are present.There are mild [...] Cedeño MD; Dr. Jacek Anaya MD ~ [employer]: Signed [facility] 12-27-2023 Telephone encounter Note [facility] will send RX to [facility] 12-27-2023 Miscellaneous Notes Prefect will send RX to [facility] Yes, I just did a curbside visit with her when her came in, I put a note in September 24 of this year Received refill request electronically via [employer]. Pt last seen 12/29/2021, F/u in PRN. Refilled Metoprolol Succ 25mg Daily #90 with 3 refills. Rx sent to [facility]. documented in this encounter [facility] 12-27-2023 Telephone encounter Note Yes, I just did a curbside visit with her when her came in, I put a note in September 24 of this year [facility] 12-26-2023 Telephone encounter Note Received refill request electronically via [employer]. Pt last seen 12/29/2021, F/u in PRN. Refilled Metoprolol Succ 25mg Daily #90 with 3 refills. Rx sent to [facility]. [facility] 12-18-2023 Telephone encounter Note Received refill request electronically via [employer]. Pt last seen 12/29/21, F/u in PRN. Atorvastatin can be refill by PCP, will refued [facility] 12-18-2023 Miscellaneous Notes Received refill request electronically via [employer]. Pt last seen 12/29/21, F/u in PRN. Atorvastatin can be refill by PCP, will refued documented in this encounter [facility] 09-27-2023 History of Presen t illness Narrative Faxed PCP for labs Faxed PFT order to Kimi for scheduling [phone] Saw patient today when I was seeing [...] pressure She needs pulmonary function testing at [facility] documented in this encounter [facility] 09-25-2023 History of Presen t illness Narrative [...] pressure She needs pulmonary function testing at [facility] documented in this encounter [facility] 09-25-2023 Note Saw patient today wh en [...] pressure She needs pulmonary function testing at [facility] or [place] AUTHENTICATED BY GORDON LYN, ON 09/25/2023 16:04:14 [facility] 01-31-2023 Telephone encounter Note Received refill request electronically via [employer]. Pt last seen 12/29/21, F/u in PRN. Refilled Metoprolol 25mg Daily #90 with 3 refill and Atorvastatin 40mg Daily #90 with 3 refill. Rx sent to [facility]. [facility] 01-31-2023 Miscellaneous Notes Received refill request electronically via [employer]. Pt last seen 12/29/21, F/u in PRN. Refilled Metoprolol 25mg Daily #90 with 3 refill and Atorvastatin 40mg Daily #90 with 3 refill. Rx sent to [facility]. documented in this encounter [facility] 01-16-2022 Evaluation + Plan note Associated Problem(s): PATEL (dyspnea on exertion) Plans for echo and stress. [facility] 01-16-2022 Miscellaneous Notes Associated Problem(s): PATEL (dyspnea [...] 40 mg daily. documented in this encounter [facility] 01-16-2022 Evaluation + Plan note Associated Problem(s): Dyslipidemia Her LDL is 140. I do feel at the age of 76 and a family history of early heart disease, there is a benefit to get that LDL lower with a statin. We talked about the pleomorphic plaque stabilization benefits. She is agreeable and will start at atorvastatin 40 mg daily. [facility] 12-29-2021 History of Presen t illness Narrative Interventional Cardiology Clinic Consult Heart & Vascular [facility] 12/29/2021 Gordon Lyn MD [address] [address] Patient: Emilia Somemrs Date of : 1945 (76 y.o.) Referring [...] is not nervous/anxious. documented in this encounter [facility] Evaluation note Diagnosis Angina pectoris (HCC)- Primary Other and unspecified angina pectoris Coronary artery disease, unspecified vessel or lesion type, unspecified whether angina present, unspecified whether [place] or transplanted heart SOB (shortness of breath) Shortness of breath [facility] Work [facility]: Evaluation note* Diagnosis Dyslipidemia- Primary Other and unspecified hyperlipidemia PATEL (dyspnea on exertion) Other dyspnea and respiratory abnormality FH: CAD (coronary artery disease) Family history of ischemic heart disease [facility] Diagnosis Onset Date Resolution Status DDD (degenerative disc disease), lumbar acute Scoliosis deformity of spine acute [facility] Work Phone: Evaluation note* Diagnosis PATEL (dyspnea on exertion)- Primary Other dyspnea and respiratory abnormality [facility] Diagnosis PATEL (dyspnea on exertion)- Primary Other dyspnea and respiratory abnormality [facility] ([facility]arrative)No reason for referral information availableWBl[facility] Work Phone: Summary Purpose Family History No Family History Records FoundNo Family History Records FoundNo Family History Records FoundNo Family History Records Found Advance Directives No Advanced Directives Records Found Advance Directive Response Recorded Date/ Time Living Will Yes March 23 3:58pm Power of Special Projects Manager Yes March 23, 2020 3:58pm Advance Directive Response Recorded Date/ Time Living Will Yes March 23 2:58pm Power of Special Projects Manager Yes March 23, 2020 2:58pm Reason for Referral Specialty Diagnoses / Procedures Referred By Bryon montejo Referred To Contact Cardiology Diagnoses SOB (shortness of breath) Procedures Echocardiogram complete Gordon Lyn MD [address] [facility] [address] [place] [address] Referral ID Status Reason Start Date Expiration Date V isits Requested Visits Authorized [id number] New Request 09/03/2021 09/03/2022 1 1 Specialty Diagnoses / Procedures Referred By Bryon montejo Referred To Contact Radiology Diagnoses Dyslipidemia PATEL (dyspnea on exertion) FH: CAD (coronary artery disease) Procedures NM Myocardial Perfusion Multiple SPECT Gordon Lyn MD [address] [facility] [address] [place] [address] Referral ID Status Reason Start Date Expiration Date V isits Requested Visits Authorized [id number] Pending Review 12/29/2021 12/29/2022 4 4 Specialty Diagnoses / Procedures Referred By Contac t Referred To Contact Pulmonary Disease Diagnoses PATEL (dyspnea on exertion) Gordon Lyn MD [address] [facility] [address] [place] [address] Referral ID Status Reason Start Date Expiration Date Visits Requested Visits Authorized [id number] Pending Review Specialty Services Required/Pat ient's Best [...] section and content) DATE CREATED AUTHOR 06/21/2020 [facility] DATE CREATED AUTHOR AUTHOR'S ORGANIZ ATION 02/24/2022 [facility] DATE CREATED AUTHOR AUTHOR'S ORGANIZ ATION 12/11/2023 [facility] DATE CREATED AUTHOR AUTHOR'S ORGANIZ ATION 09/14/2024 [facility] Care Teams (unrecognized sec tion and content) Electric Meter Reader Relationship Specialty Start Date End Date Jose Robb MD [address] [place] [address] PCP - General Emergency Medicine 09/03/21 Electric Meter Reader Relationship Specialty Start Date End Date Jose Robb MD [address] [place] [address] PCP - General Emergency Medicine 09/03/21 Team [...] MD Primary Care Provider, Attending Provider Active Electric Meter Reader Relationship Specialty Start Date End Date Jose Robb MD [address] [facility] [place] [address] PCP - General Emergency Medicine 09/03/21 Electric Meter Reader Relationship Specialty Start Date End Date Jose Robb MD [address] [place] [address] PCP - General Emergency Medicine 09/03/21 Electric Meter Reader Relationship Specialty Start Date End Date Jose Robb MD [address] [facility] [place] [address] PCP - General Emergency Medicine 09/03/21 Electric Meter Reader Relationship Specialty Start Date End Date Jose Robb MD [address] [facility] [place] [address] PCP - General Emergency Medicine 09/03/21 Electric Meter Reader Relationship Specialty Start Date End Date Jose Robb MD [address] [facility] [place] [address] PCP - General Emergency Medicine 09/03/21 Electric Meter Reader Relationship Specialty Start Date End Date Jose Robb MD [address] [place] [address] PCP - General Emergency Medicine 09/03/21 Electric Meter Reader Relationship Specialty Start Date End Date Jose Robb MD [address] [place] [address] PCP - General Emergency Medicine 09/03/21 Team [...] BE BASED ON THE PRIMARY CLINICAL RECORDS. [employer] provides no warranty or guarantee of the accuracy or completeness of information in this document.
[2024-11-08 16:22] LABS: Anion Gap 15 (5-15); BUN 41 mg/dL (4-19); BUN/Creat Ratio 23.5 RATIO (10-20); Calcium,Total 9.3 mg/dL (7.6-11.0); Carbon Dioxide 19.1 mmol/L (21.0-32.0); Chloride 104 mmol/L (98-108); Cholesterol 148 mg/dL (<=200); Glucose 93 mg/dL (70-99); Low Density Lipoprotein Calc. 82 mg/dL; Potassium 4.7 mmol/L (3.3-5.1); Triglycerides 94 mg/dL; Uric Acid 8.6 mg/dL (2.6-6.0); Very Low Density Lipoprotein 19 mg/dL (5-40); cholesterol:hdl ratio screen 3.13
== END | disposition home or self-care (01) ==
LOC: MFPLAB 12:09
PROVIDERS: PCP Family Medicine; Referring Provider Family Medicine; Visit Provider Family Medicine
DX: Z00.00 Encounter for general adult medical examination without abnormal findings (principal); M10.9 Gout, unspecified
CPT/HCPCS: 36415; 80048; 80061; 84550